=== PATIENT | male | born 1955 | race African-American/Black ===

== ENCOUNTER 2018-01-01 20:09 | Inpatient (IN) | payer OTHER ==
[2018-01-01] MEDS ORDERED: Atorvastatin Calcium 40 MG TAB PO SCH (21:30)
[2018-01-01] MEDS ORDERED: Atorvastatin Calcium 20 MG TAB PO SCH (21:30)
[2018-01-01 21:43] LABS: Troponin I 0.039 ng/mL (< 0.028)
[2018-01-01 22:32] VITALS: BMI 31.1
[2018-01-01] MEDS ORDERED: Ondansetron HCl/PF 4 MG/2 ML Vial IVP PRN (22:40)
[2018-01-01] MEDS ORDERED: Acetaminophen 325 MG TAB PO PRN (22:40)
[2018-01-01] MEDS ORDERED: Ondansetron ODT 4 MG TAB SL PRN (22:40)
[2018-01-01] MEDS ORDERED: Milk Of Magnesia 30 ML UDCUP PO PRN (22:47)
[2018-01-01] MEDS ORDERED: Dextrose 5% in Water 1,000 ML IV PRN (22:49)
[2018-01-01] MEDS ORDERED: HumaLOG 300 UNITS/3 ML VIAL SC PRN (22:49)
[2018-01-01] MEDS ORDERED: Dextrose 50% Abboject 50 ML SYRINGE SLOW IVP PRN (22:49)
[2018-01-01] MEDS ORDERED: Albuterol Sulfate 2.5 mg/3 ml Neb NEB PRN (22:50)
[2018-01-01] MEDS ORDERED: Dextrose 5 %-0.45 % NaCl 1,000 ML IV SCH (23:00)
[2018-01-02 00:15] LABS: Troponin I 0.046 ng/mL (< 0.028)
--- NOTE | 2018-01-02 01:33 | HP ---
PRESENTING COMPLAINT: Altered mental status. HISTORY OF PRESENT ILLNESS: This is a 62-year-old male with a past medical history of hypertension, diabetes mellitus, asthma, and? CKD, who was noticed to be behaving bizarrely on Monday afternoon. He was having difficulty expressing himself, was combative , forgetful (could not even remember his own phone number), he was also frustrated and he had unsteady gait. He also complained of blurry vision. Patient's family reports that they have never seen him like that even though they are aware that he uses cocaine and they have seen him high. He had also complained of a persistent headache a week before. There was no history of fevers, chills, chest pain, shortness of breath. He has no abdominal or urinary symptoms. History limited due to patient's clinical condition (unable to give history and sister had to fill in with details). PAST MEDICAL HISTORY: Hypertension, diabetes mellitus, asthma, and questionable CKD. FAMILY HISTORY: Reviewed and noncontributory. PAST SURGICAL HISTORY: Noncontributory. SOCIAL HISTORY: He uses cocaine socially. Occasionally, he smokes, unsure if he uses alcohol or not. ALLERGIES: PENICILLIN. PRIMARY CARE PHYSICIAN: None. REVIEW OF SYSTEMS: Unable to assess due to patient's acute confusion. HOME MEDICATIONS: Unclear what medication the patient takes at home. PHYSICAL EXAMINATION: VITAL SIGNS: Blood pressure 189/96, temperature 98.9 degrees Fahrenheit, heart rate 75, respiratory rate 20, oxygen saturation 96% on room air. GENERAL: Not in acute distress, sitting comfortably in bed. HEENT: Normocephalic, atraumatic. Not pale, anicteric. Moist oral mucosa. PERRLA, EOMI. RESPIRATORY: Vesicular breath sounds bilaterally, no wheezes or rales. CARDIOVASCULAR: S1 and S2, only. Regular rate and rhythm. No murmurs, rubs, or gallops. ABDOMEN: Soft, nontender, nondistended. Bowel sounds positive. No hepatosplenomegaly. MUSCULOSKELETAL: No abnormalities. No edema. SKIN: Warm, dry, well perfused. NEUROLOGICAL: Has difficulty following commands and seems to have left-sided neglect. Strength 5/5 in right upper and lower extremities. Patient not really cooperating with movement of his left extremities. PSYCHIATRIC: Unable to assess. LABORATORY DATA: Chemistry significant for elevated creatinine of 1.7. Unclear if the patient has a history of CKD or not. Initial troponin was 0.039. Urinalysis was largely unremarkable. Urine toxicology was positive for cocaine metabolites. Hematology showed no real abnormalities. Brain CT, which showed [id number] white matter abnormalities, which may represent chronic ischemic change. MRI suggested to better characterize the findings. Abdomen/pelvis CT also was done and this shows no evidence of urinary tract calculus or obstruction. It also revealed a low density lesion in the right kidney, probably a cyst and a followup ultrasound was suggested to further evaluate. EKG: No acute ischemia. ASSESSMENT AND PLAN: 1. Aphasia with L extremity weakness: Concern for Acute ischemic stroke. Patient seems to have Broca's aphasia with difficulty expressing himself. He has been admitted for cerebrovascular accident. We will pursue an MRI brain, monitor on tele and get Neurology consult. We will also obtain a lipid profile , start on aspirin and statin for secondary prevention. PT/OT/speech language pathologist will also be consulted. 2. Diabetes mellitus. His blood glucose is currently relatively well controlled. We will place on sliding scale insulin, fingerstick glucose every 6 hours and hypoglycemia protocol. 3. Acute kidney injury. We will hydrate and monitor creatinine. 4. Hypertension. We will hold his home blood pressure medications once confirmed as we are allowing for permissive hypertension for now. PRN Labetalol for SBP > 220 and DBP > 120. 5. Asthma. Nebulizers p.r.n. CODE STATUS: FULL. MTDD
[2018-01-02] MEDS: Labetalol HCl 100 MG/20 ML VIAL SLOW IVP PRN (02:36)
[2018-01-02 04:29] LABS: #Basophils 0.1 thou/uL (0.0-0.2); #Eosinphils 0.1 thou/uL (0.0-0.7); #Lymphocytes 2.2 thou/uL (1.20-3.40); #Monocytes 1.1 thou/uL (0.11-0.59); #Neutrophils 5.3 thou/uL (1.40-6.50); %Basophils 0.7 % (0.0-1.0); %Eosinophils 0.8 % (0.0-10.0); %Lymphocytes 25.6 % (21.0-51.0); %Monocytes 12.3 % (0.0-10.0); %Neutrophils 60.6 % (42.0-75.0); Hemoglobin 14.4 g/dL (14.0-18.0); Mean Corpuscular HGB CONC 32.9 g/dL (32.0-36.0); Mean Corpuscular Hemoglobin 30.7 pg (27.0-31.0); Mean Corpuscular Volume 93.1 fl (80.0-94.0); Mean Platelet Volume 8.5 fL (7.4-10.4); Platelet Count 211 thou/uL (130-400); RBC Distribution Width 12.2 % (11.5-14.5); White Blood Cell (WBC) Count 8.7 thou/uL (4.8-10.8)
[2018-01-02 04:42] LABS: Troponin I 0.041 ng/mL (< 0.028)
[2018-01-02 04:47] LABS: ALT (SGPT) 14 U/L (8-55); AST (SGOT) 20 U/L (5-34); Albumin 3.9 g/dL (3.5-5.0); Alkaline Phosphatase 67 U/L (40-150); Anion Gap 14 mmol/L (10-20); BUN (Urea Nitrogen) 15 mg/dL (8.4-25.7); Bilirubin, Total 0.8 mg/dL (0.2-1.2); Calc. Creatinine Clearance 74 mL/min (70-130); Calcium 9.1 mg/dL (7.8-10.44); Carbon Dioxide 21 mmol/L (22-29); Cardiac Risk 6.5 (Less than 4.5); Chloride 104 mmol/L (98-107); Cholesterol 221 mg/dl (< 200 Desired); Estimated GFR-MDRD 61; Globulin 3.4 g/dL (2.4-3.5); Glucose 125 mg/dL (70-105); HDL Cholesterol 34 mg/dL (>60 Neg Risk); LDL Cholesterol, Calculated 171 mg/dL; Potassium 3.5 mmol/L (3.5-5.1); Protein, Total 7.3 g/dL (6.0-8.3); Sodium 135 mmol/L (136-145); Triglycerides 81 mg/dL (Less than 150)
[2018-01-02] MEDS ORDERED: FLU VACC QS2017-18 36 mo. & older 0.5 ML SYRINGE IM ONE (09:00)
[2018-01-02] MEDS ORDERED: Aspirin 325 MG TAB PO SCH (09:00)
--- NOTE | 2018-01-02 10:24 | PQF ---
DATE: 01-02-18 ATTN: DR. ROBERTO VILLALTA Please exercise your independent, professional judgment in responding to the clarification form. Clinical indicators are provided on the bottom of this form for your review Please check appropriate box(s): [ ] Encephalopathy: Type: [ ] Hypertensive [ ] Acute [ ] Subacute [ ] Chronic Etiology: [ ] Metabolic [ ] Toxic [ ] Drug induced: [ ] Unspecified [ ] Transient Alteration of Awareness [ ] Other diagnosis [ ] Unable to determine In addition, please specify: Present on Admission (POA): [ ] Yes [ ] No [ ] Unable to determine For continuity of documentation, please document condition throughout progress notes and discharge summary. Thank You. CLINICAL INDICATORS - SIGNS / SYMPTOMS / LABS ER DOCUMENTATION: EVALUATION OF CONFUSION, MENTAL STATUS CHANGE, FAMILY NOTICED CHANGE IN MENTAL STATUS AND DIFFICULTY SPEAKING H&P: UNABLE TO ASSESS DUE TO PATIENTS ACUTE CONFUSION BP: 01-02-18: 183/118, 165/106 RISK FACTORS: H&P: HE USES COCAINE SOCIALLY, HYPERTENSION TREATMENTS: NEURO CONSULT (MAR) LABETALOL IV (This form is maintained as a part of the permanent medical record) 2014 [employer], [employer]. All Rights Reserved EDEN [email or web address] Office: [phone] ANGELICA
[2018-01-02] MEDS: Aspirin 325 mg Enteric Coated Tablet PO SCH (12:15)
[2018-01-02] MEDS: Heparin 5,000 UNITS/ML VIAL SC SCH ×2 (12:15→19:42)
--- NOTE | 2018-01-02 12:49 | MRI ---
MRI BRAIN NONCONTRAST: HISTORY: CVA. COMPARISON: CT exam from 01/01/2018. FINDINGS: Multiple small, irregular-shaped foci of restricted diffusion involve the posterior aspect of the rig ht external capsule, the posterior limb of the right internal capsule, the cortex of the right tempor al lobe, the posterior aspect of the frontal lobe, and the parietal lobe. No restricted diffusion on the left. There is prominent chronic ischemic small vessel disease throughout the periventricular w alia matter of each cerebral hemisphere. No mass effect or shift of midline structures. Motion bhavesh fact limits detail. IMPRESSION: Small foci of acute infarct within the right cerebellar hemisphere, suggesting showering of tiny embo li in the distribution of the right middle cerebral artery. No large vascular distribution defect is otherwise demonstrated. POS: [facility]
--- NOTE | 2018-01-02 15:32 | PDOC.PN ---
- Subjective Encounter Start Date: 01/02/18 Encounter Start Time: 15:29 Subjective: nsg notes rev, edouard ovn, no new c/o pt has little recall of yesterday 's -: events but states that he feels close to his "usual" - denies any speech -: slurring or weakness - Objective Resuscitation Status: Resuscitation Status FULL:Full Resuscitation Vital Signs & Weight: Vital Signs (12 hours) Temp Pulse Pulse Pulse Resp BP BP 01/02/18 11:45 98.5 F 64 16 01/02/18 10:39 69 78 164/106 H 182/114 H 01/02/18 07:57 98.6 F 64 16 01/02/18 07:28 67 72 172/99 H 161/124 H 01/02/18 03:39 99.3 F 71 20 BP Pulse Ox 01/02/18 11:45 152/98 H 98 01/02/18 10:39 01/02/18 07:57 165/106 H 98 01/02/18 07:28 01/02/18 03:39 149/93 H 95 Weight Weight 211 lb I&O: 01/01/18 01/02/18 01/03/18 06:59 06:59 06:59 Intake Total 950 Output Total 950 Balance 0 Result Diagrams: 01/02/18 04:03 01/02/18 04:03 Additional Labs: Accuchecks 01/02/18 01/02/18 01/01/18 10:53 05:12 22:33 POC Glucose 177 H 122 H 82 Phys Exam - Physical Examination Constitutional: NAD HEENT: PERRLA, moist MMs, sclera anicteric, TM's clear cranial nn 2-12 grossly intact Respiratory: no wheezing, no rales, no rhonchi, clear to auscultation bilateral reasonable air mvmt Cardiovascular: RRR, no significant murmur, no rub pulses 2+ b/l UE Gastrointestinal: soft, non-tender, no distention, positive bowel sounds Musculoskeletal: no edema Neurological: moves all 4 limbs Psychiatric: normal affect, A&O x 3 Skin: cap refill <2 seconds Dx/Plan - Plan 62M hx HTN, DM who p/w AMS, word finding difficulties and extremity weakness. * stroke MCA distribution, concern for embolic etiology * pending ECHO * ASA * apprec neuro c/s HTN * close monitoring on stroke unit * permissive antihypertension DM2 * stable, monitor diet: diabetic activity: as latisha, PT c/s dvt ppx Review of Systems - Medications/Allergies Allergies/Adverse Reactions: Allergies Allergy/AdvReac Type Severity Reaction Status Date / Time No Known Allergies Allergy Verified 01/02/18 00:10 Medications: Current Medications Albuterol Sulfate (Ventolin) 2.5 mg NEB Q4H PRN PRN Reason: Wheezing Aspirin (Ecotrin) 325 mg PO DAILY [facility] Last Admin: 01/02/18 12:15 Dose: 325 mg Atorvastatin Calcium (Lipitor) 40 mg PO HS [facility] Dextrose/Water (Dextrose 50%) 25 gm SLOW IVP PRN PRN PRN Reason: Hypoglycemia Glucagon (Glucagon) 1 mg IM PRN PRN PRN Reason: Hypoglycemia Heparin Sodium (Porcine) (Heparin) 5,000 units SC Q12HR [facility] Last Admin: 01/02/18 12:15 Dose: 5,000 units Dextrose/Water (D5w) 1,000 mls @ 0 mls/hr IV .Q0M PRN; As Directed PRN Reason: Hypoglycemia Insulin Human Lispro (Humalog) 0 units SC .MILD SLIDING SCALE PRN PRN Reason: Mild Correctional Scale Labetalol HCl (Normodyne) 10 mg SLOW IVP Q4H PRN PRN Reason: SBP Greater Than 180 Last Admin: 01/02/18 02:36 Dose: 2 ml Lactulose (Lactulose) 20 gm PO DAILYPRN PRN PRN Reason: Constipation Magnesium Hydroxide (Milk Of Magnesium) 30 ml PO DAILYPRN PRN PRN Reason: Constipation Sodium Chloride (Flush - Normal Saline) 10 ml IVF Q12HR [facility] Last Admin: 01/02/18 12:19 Dose: 10 ml Sodium Chloride (Flush - Normal Saline) 10 ml IVF PRN PRN PRN Reason: Saline Flush
[2018-01-02] MEDS ORDERED: Ondansetron HCl/PF 4 MG/2 ML Vial IVP PRN (19:19)
[2018-01-02] MEDS: Atorvastatin Calcium 40 MG TAB PO SCH (19:42)
[2018-01-02] MEDS: Acetaminophen 325 MG TAB PO PRN (19:42)
--- NOTE | 2018-01-02 22:04 | CON ---
DATE OF CONSULTAITON: 01/02/2018 REFERRING PHYSICIAN: Dr. Agatha Mahan. REASON FOR CONSULTATION: Stroke. HISTORY OF PRESENT ILLNESS: Mr. Little is a pleasant 62-year-old -[place]ian male who has been concerned for evaluation of a stroke. History is obtained from patient's medical chart as well as patient who is somewhat of a poor historian. He reports that he was having difficulty with expres sing himself. He was having difficulty with remembering and difficulty with performing activities. He was also noted to have unsteady gait and blurred vision, which prompted his family members to brin g him to the emergency room for further evaluation. He did not have any headache, chest pain, palpit ation, nausea, vomiting, abdominal pain. He reports that his symptoms have improved since he is aricin yari admitted to the hospital. PAST MEDICAL HISTORY: Significant for hypertension, diabetes, asthma and questionable chronic kidney disease. PAST SURGICAL HISTORY: None significant. SOCIAL HISTORY: He uses cocaine socially. He occasionally smokes. FAMILY HISTORY: Noncontributory. CURRENT MEDICATIONS: Please review MAR. ALLERGIES: Include PENICILLIN. REVIEW OF SYSTEMS: As mentioned above in the HPI, otherwise negative. PHYSICAL EXAMINATION: VITAL SIGNS: Blood pressure of 161/103, pulse of 76, temperature of 98.8, respirations of 16, O2 sat s of 93% on room air. GENERAL: Well-developed, well-nourished -[place]vian male, in no apparent distress. RESPIRATORY: Clear to auscultation bilaterally. CARDIOVASCULAR: Regular rate and rhythm. NEUROLOGICAL: Mental status: The patient is awake, alert, oriented x3. Speech and language: Fluen t speech. Cranial nerves: Pupils are 3 mm and reactive. He has a left hemianopia. He has a left h emineglect. Face appears symmetric. Tongue and uvula are midline. Motor exam showed normal tone an d bulk with a 5/5 strength in both upper and lower extremities. Sensory: He has a left hemineglect. Deep tendon reflexes, somewhat brisk reflexes in left upper and left lower extremity. Babinski harvey ntar responses extensor on the left, flexion on the right. Coordination intact to [id number] tapping bilaterally. LABORATORY DATA: Reviewed, which included CBC and CMP with lipid profile, which is significant for s odium 135, creatinine 1.43, glucose of 177, troponin of 0.041, total cholesterol 221, LDL of 171, HDL of 34, and triglycerides of 81, otherwise unremarkable. IMAGING STUDIES: MRI brain without contrast was reviewed, which showed moderate size right middle ce rebral artery distribution ischemic infarct. IMPRESSION: 1. Right middle cerebral artery distribution ischemic infarct. 2. Left hemineglect, due to #1. 3. Left hemianopia, due to #1. 4. Hypertension. PLAN: Mr. Little is a pleasant 62-year-old -[place]ian male with a history of cocaine use in the past, presented with the gait imbalance difficulty along with changes in behavior. His MRI di d show acute right middle cerebral artery distribution ischemic infarct. At this time, I will recomm end obtaining echocardiogram and CT angiogram of the neck for further evaluation. I would recommend continuing on aspirin 325 mg daily for secondary stroke prevention. He will also need to continue on atorvastatin 40 mg at bedtime. I have discussed with the patient that he cannot drive as he has a c omplete left hemianopia that would restrict his driving. Continue supportive care. Thank you for your consultation.
[2018-01-03] MEDS: Acetaminophen 325 MG TAB PO PRN ×2 (04:10→21:02)
[2018-01-03 05:27] LABS: #Basophils 0.1 thou/uL (0.0-0.2); #Eosinphils 0.1 thou/uL (0.0-0.7); #Lymphocytes 2.8 thou/uL (1.20-3.40); #Neutrophils 3.2 thou/uL (1.40-6.50); %Basophils 0.8 % (0.0-1.0); %Eosinophils 1.8 % (0.0-10.0); %Lymphocytes 39.2 % (21.0-51.0); %Monocytes 13.8 % (0.0-10.0); %Neutrophils 44.3 % (42.0-75.0); Hemoglobin 14.4 g/dL (14.0-18.0); Mean Corpuscular HGB CONC 33.2 g/dL (32.0-36.0); Mean Corpuscular Hemoglobin 31.3 pg (27.0-31.0); Mean Corpuscular Volume 94.3 fl (80.0-94.0); Mean Platelet Volume 8.5 fL (7.4-10.4); Platelet Count 216 thou/uL (130-400); RBC Distribution Width 12.5 % (11.5-14.5); White Blood Cell (WBC) Count 7.1 thou/uL (4.8-10.8)
[2018-01-03 05:53] LABS: Anion Gap 13 mmol/L (10-20); BUN (Urea Nitrogen) 13 mg/dL (8.4-25.7); Calc. Creatinine Clearance 68 mL/min (70-130); Calcium 9.1 mg/dL (7.8-10.44); Carbon Dioxide 25 mmol/L (22-29); Chloride 103 mmol/L (98-107); Estimated GFR-MDRD 54; Glucose 85 mg/dL (70-105); Potassium 3.9 mmol/L (3.5-5.1); Sodium 137 mmol/L (136-145)
--- NOTE | 2018-01-03 08:59 | CT ---
CT ANGIOGRAM OF THE NECK: Date: 01/03/18 HISTORY: Poor historian. Stroke. Altered mental status. COMPARISON: None. TECHNIQUE: CT angiogram of neck performed in the axial plane. Sagittal and coronal three-dimensional reformatted images are submitted for interpretation. CORRELATION: MRI brain dated 01/02/18. FINDINGS: Visualized brain parenchyma and orbits are unremarkable. Adequate aeration of the visualized sinuses and mastoid air cells. Minimal mucosal disease and retention cyst in the left maxillary sinus. Aerodigestive tract is patent. No mucosal abnormality. Midline fatty raphe of the tongue is preserved . Epiglottis has a normal caliber. Pre-epiglottic fat is preserved. Parapharyngeal fat is preserved. Symmetric attenuation of the parotid and submandibular glands. Thyroid gland is unremarkable. Symmetric attenuation of the sternocleidomastoid muscles. There is scattered nonspecific, nonenlarged bilateral soft tissue neck lymph nodes. Cervical spine vertebral body height is maintained. No fracture. Varying degrees of central canal aiyana nosis and foraminal narrowing on the basis of degenerative change. Upper mediastinum is unremarkable. Presumed chronic change in the lung apices. CT ANGIOGRAM: There is appropriate enhancement and luminal diameter of the aortic arch. Right Carotid: The origin of the right carotid artery has appropriate enhancement and luminal diameter. The right co mmon carotid artery, carotid bifurcation, and internal carotid artery have appropriate enhancement an d luminal diameter. No significant stenosis based upon NASCET criteria. There is mild stenosis of the proximal right internal carotid artery. Left Carotid: There is appropriate enhancement and luminal diameter of origin of left carotid artery. Left common c arotid artery, carotid bifurcation, and internal carotid artery have appropriate enhancement and yesenia nal diameter. No significant stenosis based upon NASCET criteria. Both subclavian arteries are unremarkable. The origin of the left and right vertebral arteries are pa tent. Both cervical vertebral arteries are patent throughout the course of the neck. Vertebral arteri es are essentially codominant. IMPRESSION: Short segment mild stenosis involving the proximal right internal carotid artery. No significant sten osis based upon NASCET criteria. POS: [facility]
[2018-01-03] MEDS: Heparin 5,000 UNITS/ML VIAL SC SCH ×2 (09:26→21:03)
[2018-01-03] MEDS: Aspirin 325 mg Enteric Coated Tablet PO SCH (09:26)
[2018-01-03] MEDS: Labetalol HCl 100 MG/20 ML VIAL SLOW IVP PRN (12:43)
[2018-01-03] MEDS ORDERED: Polyethylene Glycol 3350 17 GM Packet PO SCH (18:15)
--- NOTE | 2018-01-03 19:31 | PDOC.PN ---
- Subjective Encounter Start Date: 01/03/18 Encounter Start Time: 19:31 Subjective: nsg notes rev, edouard ovn, no new c/o - Objective Resuscitation Status: Resuscitation Status FULL:Full Resuscitation Vital Signs & Weight: Vital Signs (12 hours) Temp Pulse Resp BP BP Pulse Ox 01/03/18 16:54 145/103 H 01/03/18 16:00 98.6 F 53 L 16 194/121 H 92 L 01/03/18 12:00 98.2 F 65 16 175/132 H 97 01/03/18 08:26 98.6 F 53 L 16 92 L 01/03/18 08:00 98.1 F 66 16 158/114 H 94 L Weight Weight 211 lb 14.4 oz I&O: 01/02/18 01/03/18 01/04/18 06:59 06:59 06:59 Intake Total 950 1270 800 Output Total 950 700 Balance 0 570 800 Result Diagrams: 01/03/18 04:07 01/03/18 04:07 Additional Labs: Accuchecks 01/03/18 01/03/18 01/03/18 17:10 11:41 04:08 POC Glucose 107 137 H 85 01/02/18 19:38 POC Glucose 155 H Phys Exam - Physical Examination Constitutional: NAD HEENT: PERRLA, moist MMs Respiratory: no wheezing, no rales, no rhonchi, clear to auscultation bilateral limited ant exam Cardiovascular: RRR, no significant murmur, no rub Gastrointestinal: soft, positive bowel sounds Musculoskeletal: no edema, pulses present Dx/Plan - Plan 62M hx HTN, DM who p/w AMS, word finding difficulties and extremity weakness. * stroke MCA distribution, concern for embolic etiology * ECHO unrevealing * CT neck unrevealing * ASA * apprec neuro c/s HTN * close monitoring on stroke unit * permissive antihypertension * t/c starting antihypertensive medication at d/c if continued elev BP DM2 * stable, monitor diet: diabetic activity: as latisha, PT c/s dvt ppx start d/c planning Review of Systems - Medications/Allergies Allergies/Adverse Reactions: Allergies Allergy/AdvReac Type Severity Reaction Status Date / Time No Known Allergies Allergy Verified 01/02/18 00:10 Medications: Current Medications Acetaminophen (Tylenol) 650 mg PO Q6H PRN PRN Reason: Headache/Fever or Pain Last Admin: 01/03/18 04:10 Dose: 650 mg Albuterol Sulfate (Ventolin) 2.5 mg NEB Q4H PRN PRN Reason: Wheezing Aspirin (Ecotrin) 325 mg PO DAILY [facility] Last Admin: 01/03/18 09:26 Dose: 325 mg Atorvastatin Calcium (Lipitor) 40 mg PO HS [facility] Last Admin: 01/02/18 19:42 Dose: 40 mg Dextrose/Water (Dextrose 50%) 25 gm SLOW IVP PRN PRN PRN Reason: Hypoglycemia Docusate Sodium (Colace) 100 mg PO BID [facility] Glucagon (Glucagon) 1 mg IM PRN PRN PRN Reason: Hypoglycemia Heparin Sodium (Porcine) (Heparin) 5,000 units SC Q12HR [facility] Last Admin: 01/03/18 09:26 Dose: 5,000 units Dextrose/Water (D5w) 1,000 mls @ 0 mls/hr IV .Q0M PRN; As Directed PRN Reason: Hypoglycemia Insulin Human Lispro (Humalog) 0 units SC .MILD SLIDING SCALE PRN PRN Reason: Mild Correctional Scale Labetalol HCl (Normodyne) 10 mg SLOW IVP Q4H PRN PRN Reason: SBP Greater Than 180 Last Admin: 01/03/18 12:43 Dose: 2 ml Lactulose (Lactulose) 20 gm PO DAILYPRN PRN PRN Reason: Constipation Magnesium Hydroxide (Milk Of Magnesium) 30 ml PO DAILYPRN PRN PRN Reason: Constipation Last Admin: 01/03/18 12:43 Dose: 30 ml Ondansetron HCl (Zofran) 4 mg IVP Q6H PRN PRN Reason: Nausea/Vomiting Last Admin: 01/02/18 19:42 Dose: 4 mg Polyethylene Glycol (Miralax) 17 gm PO NOW [facility] Stop: 01/03/18 20:15 Sodium Chloride (Flush - Normal Saline) 10 ml IVF Q12HR [facility] Last Admin: 01/03/18 09:26 Dose: 10 ml Sodium Chloride (Flush - Normal Saline) 10 ml IVF PRN PRN PRN Reason: Saline Flush
[2018-01-03] MEDS: Atorvastatin Calcium 40 MG TAB PO SCH (21:02)
[2018-01-03] MEDS: Docusate 100 MG CAP PO SCH (21:02)
[2018-01-04 05:46] LABS: #Basophils 0.1 thou/uL (0.0-0.2); #Eosinphils 0.2 thou/uL (0.0-0.7); #Lymphocytes 2.3 thou/uL (1.20-3.40); #Monocytes 0.9 thou/uL (0.11-0.59); #Neutrophils 3.2 thou/uL (1.40-6.50); %Basophils 0.9 % (0.0-1.0); %Eosinophils 2.5 % (0.0-10.0); %Lymphocytes 34.1 % (21.0-51.0); %Monocytes 14.1 % (0.0-10.0); %Neutrophils 48.4 % (42.0-75.0); Hemoglobin 14.2 g/dL (14.0-18.0); Mean Corpuscular HGB CONC 31.4 g/dL (32.0-36.0); Mean Corpuscular Volume 92.4 fl (80.0-94.0); Mean Platelet Volume 8.4 fL (7.4-10.4); Platelet Count 229 thou/uL (130-400); RBC Distribution Width 12.7 % (11.5-14.5); Red Blood Cell (RBC) Count 4.88 mill/uL (4.70-6.10); White Blood Cell (WBC) Count 6.6 thou/uL (4.8-10.8)
[2018-01-04 05:47] LABS: Anion Gap 13 mmol/L (10-20); BUN (Urea Nitrogen) 14 mg/dL (8.4-25.7); Calc. Creatinine Clearance 61 mL/min (70-130); Calcium 9.4 mg/dL (7.8-10.44); Carbon Dioxide 27 mmol/L (22-29); Chloride 103 mmol/L (98-107); Estimated GFR-MDRD 51; Glucose 97 mg/dL (70-105); Potassium 4.1 mmol/L (3.5-5.1); Sodium 139 mmol/L (136-145)
[2018-01-04] MEDS: Aspirin 325 mg Enteric Coated Tablet PO SCH (08:56)
[2018-01-04] MEDS: Heparin 5,000 UNITS/ML VIAL SC SCH (08:56)
[2018-01-04] MEDS: Docusate 100 MG CAP PO SCH (08:56)
[2018-01-04] MEDS: Acetaminophen 325 MG TAB PO PRN (08:56)
[2018-01-04] MEDS ORDERED: Lisinopril 10 MG TAB PO SCH (12:15)
[2018-01-04 15:58] VITALS: BP 160/104; TEMP 98.3
[2018-01-05] MEDS ORDERED: Lisinopril 10 MG TAB PO SCH (09:00)
--- NOTE | 2018-01-05 14:45 | DIS ---
DATE OF ADMISSION: 01/01/2018 DATE OF DISCHARGE: 01/04/2018 The patient's neurologist, Dr. Serrato. DISCHARGE DIAGNOSES: 1. Right middle cerebral artery stroke. 2. Hypertension. 3. Type 2 diabetes. BRIEF SUMMARY OF HOSPITAL COURSE: This is a 62-year-old male with a known history of hypertension, t ype 2 diabetes who presented with a chief complaint of altered mental status, word finding difficulti es and extremity weakness. Please see the original history and physical for full details surrounding his admission. The patient was found to have a stroke with an MCA distribution with initial concern for embolic etio logy. Echocardiogram was completed. CT neck was completed. Neurology was consulted. Imaging modal ities including the CT neck and head were unrevealing. Under Neurology guidance, the patient was harvey taylor on high dose statin and aspirin as an antithrombotic and secondary prevention medication. The pa tient tolerated these medications well. The patient's blood pressure was closely monitored in the [facility] and was initially allowed for permissive hypertension in first 24 hours after the stroke and s ubsequently with improved antihypertensive control obtained using oral antihypertensive medications. Patient's diabetes is stable during this hospitalization. Remainder of the patient's chronic medical issues were stable during his hospitalization. DISCHARGE MEDICATIONS: At the time of discharge, the patient has new medications. Prescriptions wer e given including aspirin, atorvastatin, and lisinopril. DISCHARGE FOLLOWUP: The patient is asked to follow up with primary care provider and neurologist in the next 1-2 weeks. The patient is asked to obtain a followup basic metabolic panel in approximately 1-2 weeks as well given the initiation of lisinopril which is new for the patient. Patient's condit ion at discharge at the time of discharge, the patient's speech is significantly improved as his base line function and weakness. He is being discharged to home with a request for home health evaluation for home safety. Thank you for asking me to care for your patient. Greater than 30 minutes were spent coordinating discharge for the patient. For questions or concerns , contact me at [facility].
== END 2018-01-04 17:04 | disposition home or self-care (01) | DRG 65 ==
LOC: ERS 20:09 → 2SE 22:07
PROVIDERS: ADMIT Internal Medicine; ATTEND Internal Medicine
DX: I63.9 Cerebral infarction, unspecified (principal); N17.9 Acute kidney failure, unspecified; H53.47 Heteronymous bilateral field defects; R47.01 Aphasia; I10 Essential (primary) hypertension; E11.9 Type 2 diabetes mellitus without complications; F14.10 Cocaine abuse, uncomplicated; F17.210 Nicotine dependence, cigarettes, uncomplicated; J45.909 Unspecified asthma, uncomplicated; G83.14 Monoplegia of lower limb affecting left nondominant side
CPT/HCPCS: 36415; 36416; 70498; 70551; 80048; 80053; 80061; 84484; 85025; 90471; 90682; 90732; 93306; 99285; A4216; G0008; G0009; G8978-GP-CJ; G8979-GP-CI; G8987-GO-CJ; G8988-GO-CI; G9162-GN-CL; G9163-GN-CI; J1644; J2405; Q2036

== ENCOUNTER 2018-05-06 20:03 | Inpatient (IN) | payer OTHER ==
[2018-05-06] MEDS ORDERED: chlorproMAZINE HCl 50 MG/2 ML AMP SLOW IVP SCH (21:00)
--- NOTE | 2018-05-06 22:10 | ULT ---
RIGHT UPPER QUADRANT ULTRASOUND: HISTORY: Nausea, vomiting, and abdominal pain. TECHNIQUE: Multiple longitudinal and transverse images of the right upper quadrant of the abdomen are obtained u sing a Multi-Hertz curvilinear transducer. Real-time color-flow images are used to evaluate the righ t upper quadrant. FINDINGS: The liver is unremarkable with no evidence of masses or lesions. No evidence of intrahepatic biliary dilatation is seen. The common bile duct is of normal size, measuring 4.4 mm. The gallbladder is u nremarkable with no evidence of masses. The visualized portions of the pancreas are unremarkable. T he right kidney demonstrates no definite evidence of hydronephrosis. The right kidney contains an ar ea of hypoechogenicity along the mid pole, diameter measuring approximately 2 x 2.1 x 2.2 cm. There do appear to be some internal echoes and possible septae. This may represent a right renal cortical cyst, which appears to be complex, versus a cystic mass. Correlate with elective urological consulta tion. IMPRESSION: 1. No evidence of gallstones. 2. Right renal complex cyst or cystic lesion. Urological consultation recommended, electively. POS: [facility]
--- NOTE | 2018-05-06 23:21 | PDOC.FPRHP ---
Addendum entered and electronically signed by Carli Calderón MD 05/07/18 06:36 : BP: 107/71 P: 54-66 R: 16-18 O2 sat: 97 on room air T: 97.1 Original Note: - History of Present Illness Chief Complaint: abdominal pain History of Present Illness: Patient is a 62 yo M presenting with several days of abdominal pain and N/V accompanied with hiccups. The patient was seen at [facility] and was given Reglan and Zofran which did not relieve his symptoms. The patient states he has not been able to keep any fluids or food down for days. He has a PMH significant for a stroke in December with slurred speech deficits, DM, HTN, and asthma. He has also been having headaches and states it is painful to look towards his right. The headache is severe around his right eye/mu-ism area. He denies vision changes. He reports feeling dizzy and "wobbly" when walking. He also endorses stomach pain that is sharp in character and in the middle of his abdomen. He describes the pain as constant. The patient endorses using methamphetamine and cocaine, but was not clear when the last use was. Patient possibly had a fall a few days ago, but the patient is not sure if he hit his head. The patient denies chest pain, SOB, or diarrhea. He has been voiding and stooling normally. ED Course: JANA and EKG changes - Allergies/Adverse Reactions Allergies Allergy/AdvReac Type Severity Reaction Status Date / Time Penicillins AdvReac Intermediate swelling Verified 05/06/18 23:24 - Home Medications Medication Instructions Recorded Confirmed Type Atorvastatin Calcium [Lipitor] 40 mg PO HS 30 Days #30 tab 01/03/18 05/07/18 Rx ARIPiprazole [Aripiprazole] 5 mg PO DAILY 05/07/18 05/07/18 History Aspirin [Ecotrin Regular Strength] 81 mg PO DAILY 05/07/18 05/07/18 History Lisinopril [Zestril] 5 mg PO DAILY 05/07/18 05/07/18 History Sucralfate 1 gm PO TID 05/07/18 05/07/18 History metFORMIN [Glucophage] 500 mg PO BID-WM 05/07/18 05/07/18 History - History PMHx: DM, HTN, stroke in December - deficit slurred speech, bipolar disorder, schizophrenia PSHx: 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 FHx: DM, HTN, HLD Social: methamphetamine and cocain use, denies alcohol, denies tobacco - Review of Systems Gastrointestinal: reports: nausea, vomiting, abdominal pain Neurological: reports: other (dizziness) - Vital signs BP: [] HR: [] RR: [] Tmax: [] Pox: []% on [] Wt: [] - Physical Exam Constitutional: NAD, awake, alert and oriented, well developed HEENT: normocephalic and atraumatic, other (pinpoint pupils bilaterally; mucous membranes dry) Chest: no-tender to palpation Heart: RRR, normal S1/S2, no murmurs/rubs/gallops, pulses present, no edema Lungs: CTAB, no respiratory distress, good air movement, no rales/rhonchi, no wheezing Abdomen: bowel sounds present, no masses/distention, other (TTP in RUQ and midepigastrium) Neurological: other (patient was unable to tolerate EOM due to eye pain/ headache pain; normal ROSHAN and heel to rodriguez tests) Skin: no jaundice Psychiatric: normal mood and affect FMR H&P: Results - Labs Result Diagrams: 05/07/18 02:09 05/07/18 02:09 - EKG Interpretation EKG: Incomplete RBBB with T wave inversions in V5/6 FMR H&P: A/P - Plan 1. Persistent N/V secondary to gastritis vs drug abuse vs cerebellar insult - pt has had N/V for 3 days with no PO intake - s/p 1L NS, zofran and reglan in the ED - no certain cause at this time - continue PRN zofran - gentle IVF: 75ml/hour due to CHF - Strict I/Os - concern for possible posterior cerebellar stroke in setting of recent stroke in December 2017. 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 JANA on CKD Stage 3 - consult nephro in AM due to decline in renal fuction. BUN/Cr of 14/1.68 with GFR 51 on 01/07 --> 70/3.62 with GFR of 21 today - gentle IVF - repeat BMP in the AM - calculate FeNa from urine studies 3. EKG Changes - T wave inversions V5/6 secondary to deman vs drug abuse - currently patient denies chest pain and initial Trop was 0.025 - continue to trend troponins and CK-MB and telemetry monitoring - UDS pending -will hold beta blockers 4. Elevated CK secondary to N/V vs drug abuse - gentle IVF 5.Drug Abuse - on PE patient noted to have pinpoint pupils and endorsed hx of drug abuse - UDS pending 6. Epigastric abdominal pain secondary to N/V vs Pancreatitis - TTP on exam - lipase 85- not elevated enough for dx of pancreatitis. CT-AP earlier this year not suggestive of chronic pancreatitis - continue to tx N/V which will likely resolve symptoms - if symptoms persist will consider imaging - Protonix 7. T2DM - ACHS accuchecks and sliding scale - hold metformin in setting of acute renal failure 8. HTN - will hold lisinopril in setting of JANA - PRN IV meds - currently stable 9. Asthma - Pt not on any home meds - vitals stable and normal pulm exam - continue to monitor. PRN duonebs available CODE STATUS: FULL CODE FMR H&P: Upper Level - Pertinent history 62 y/o M w/ PMHx of polysubstance abuse and recent stroke in 12/2017 w/ residual slurred speech presented initially to [place] ER for evaluatino of N/V , abdominal pain, and persistent hiccups over the past 3 days. Reportedly pt has not been able to keep any PO down during this time. Pt notes that he has felt persistently dizzy and wobbly when walking which his family member confirmed. Also w/ recent fall 2/2 this as well per patient. Denies hitting head or LOC with this fall. Also noted DAVIS located around his right eye w/ pain looking to the right. Denies any vision changes. Also endorses sharp abdominal pain located right above his belly button which is constant. - Pertinent findings PE: GEN: NAD, laying in bed with lights off. Answering questions appropriately HEENT: Slightly dry MM, poor dentition, Pinpoint pupils equal b/l, EOMI. Pain w / looking to the right PULM: CTA-B/l, no wheezes or rhonci CARD: RRR, no murmur or gallops GI: TTP epigastrium, BS x4, soft, no guarding MSK: missing DIP middle finger left hand, moves all 4 ext. equally NEURO: Normal rapid alternating hand movement, unable to perform HINTS 2/2 patient stating head hurt, Heel scrape normal b/l. Slightly slurred speech which is at baseline per family member in room. - Plan Date/Time: 05/06/18 0284 Cornelio Sheridan, have evaluated this patient and agree with findings/plan as outlined by wedding planning internship resident. Pertinent changes/additions are listed here. 1. Intractable N/V (gastritis vs illicit substance induced vs cerebellar insult) - Pt w/ persistent nasusea and vomitting for the past 3 days w/ minimal to no PO intake - Able to tolerate some PO s/p admin of 1L NS, zofran and reglan in the ER - No certain etiology at this time - Will continue with PRN zofran and place patient on gentle IVF in the setting of CHF - Strict I/O's - Some concern for possible cerebellar insult in the setting of recent stroke , multiple risk factors, and endorses dizziness, unsteady gait, and intractable hiccups which could suggest this. Pt now with sxs for over 3 days and recent work-up for CVA 12/2017 as noted below. Will continue w/ home meds for maximal medical management and risk stratification. - Recent ECHO w/ mixed sdCHF EF 35-40% - Recent CTA neck showing short segment mild stenosis of the proximal R-ICA - MRI showing R-MCA stroke per neurology notes - Cont. w/ high intensity statin, ASA for antithrombotic and secondary prevention - Will have chlorpromazine available for hiccups which will also help w/ his N/ V as well. Will plan to use for a short time only 2/2 concern for development of EPS 2. JANA on CKD Stage 3 - Recent decline in renal function from BUN/Cr of 14/1.68 w/ GFR of 51 on 2017 to 70/3.62 w/ GFR of 21 on today's labs - Likely pre-renal component in the setting of #1 however cannot r/o intrinsic disease in the setting of polysubstance abuse - Also w/ renal cyst seen on RUQ U/S - Will plan to give gentle fluids in setting of mixed sdCHF w/ EF 35-40% from and repeat BMP in the AM - Will consider consulting nephro in the AM if no improvement is seen - Will check urine studies to calculate a FeNa 3. New onset T-wave inversions V5-V6 possibly due to demand vs substance abuse - Pt denies any current chest pain and initial cardiac enzymes negative - Reportedly from ER, pt w/ new t-wave inversions in leads V5-V6 from prior EKG. We were unable to locate his prior EKG, but per the ER records from his 2017 admission these did not appear on the ER physician's read. - Initial enzymes negative. Acute ischemia causing this seems unlikely at this time. - We will continue to trend trops and CK-MB w/ admit to telemetry - UDS results pending at time of this note, will not administer any beta blockers w/ endorses hx of cocaine use 4. Elevated CK likely 2/2 #1 vs polysubstance use - Will give gentle fluids in the setting of CHF - Likely 2/2 decreased volume status vs drug use - Levels not elevated enough for concern for rhabdo at this time 6. Polysubstance abuse - Pt w/ pinpoint pupils on exam and endorsed hx of substance abuse - UDS pending 7. Epigastric abdominal pain, likely 2/2 #1 vs gastric ulcer - Pt w/ epigastric tenderness on exam likely MSK in nature from #1 vs gastric ulcer as patient is on sucralfate outpatient - Also w/ Lipase 85. Level not elevated enough for diagnosis of pancreatitis and recent CT-AP from earlier this year with normal lipase not suggestive of chronic pancreatitis. - Will continue to treat his nausea and vomitting with likely resolution of his sxs as this improves - Cont. w/ sucralfate and will add Protonix as well if this is 2/2 an ulcer - Will check FOBT - If sxs persist will consider obtaining repeat abdominal imaging for further evaluation 8. T2DM - ACHS accuchecks and sliding scale - hold metformin in setting of JANA 9. HTN - Will hold lisinopril in the setting of #2 - PRN IV medications available - Currently stable 10. Asthma - Pt not on any home inhalers and vitals stable w/ normal pulm exam - Will cont. to monitor. PRN duonebs will be available. CODE STATUS: FULL CODE Attending Addendum - Attending Addendum Date/Time: 05/07/18 5507 I personally evaluated the patient and discussed the management with Dr. Benitez I agree with the History, Examination, Assessment and Plan documented above with any addition or exceptions noted belowBriefly this is a 62yo male with h/o DM type 2, HTN, and CVA in December with residual slurred speech, and h/o substance abuse presented c/o N/V , abdominal pain, DAVIS and lightheadedness for 3 -4 days. Abdominal pain and N/V resolved but c/o right sided temporal DAVIS worsened with bright light. Denies any double vision but does report pain with movement of eyes. States that the lightheadedness occurs with ambulation and also has associated SOB, easy fatiguability. PMH/PSH/All/Meds reviewed and agree with residents documentation. Afebrile VSS Exam repeated by me and significant for pinpoint pupils, no nystagmus but reports dizziness with eye movements. Strength 4+ on right and 5/5 on left. Rapid alternating movements intact. CT brain negative. MRI brain- small lacunar infarct in left periventricular white matter. A/P: 1) New CVA- neurology consulted. Continue statin. Will discuss whether need to change antiplatekt therapy. PT/OT. 2) HTN - resume home meds. 3) Bradycardia- residents called for HR in 30-40s in afternoon- will have cardiology see patient. 4) JANA- baseline CR appears to be about 1.5; will gently hydrate due to h/o CHF with rEF. Nephrology consulted.
[2018-05-06] MEDS ORDERED: Sodium Chloride 0.9% 1,000 ML IV SCH (23:50)
[2018-05-06] MEDS ORDERED: Ondansetron HCl/PF 4 MG/2 ML Vial IVP PRN (23:50)
[2018-05-06] MEDS ORDERED: Ondansetron ODT 4 MG TAB SL PRN (23:50)
[2018-05-06] MEDS ORDERED: Acetaminophen 325 MG TAB PO PRN (23:50)
[2018-05-07] MEDS ORDERED: chlorproMAZINE HCl 25 MG TAB PO PRN (01:28)
[2018-05-07] MEDS: Lactated Ringer's 1,000 ML IV SCH ×2 (01:43→15:04)
[2018-05-07 02:02] LABS: Amphetamine Not Detected (NotDetected); Barbiturates Screen Not Detected (NotDetected); Benzodiazepine Screen Not Detected (NotDetected); Cocaine Metabolite Screen Detected (NotDetected); Medtox Control Line Valid? VALID (VALID); Medtox Reader # READER 1; Methadone Not Detected (NotDetected); Methamphetamine Not Detected (NotDetected); Opiate Screen Not Detected (NotDetected); Oxycodone Screen Not Detected (NotDetected); Phencyclidine (PCP) Not Detected (NotDetected); THC/Cannabinoid Screen Not Detected (NotDetected); Tricyclic Screen Not Detected (NotDetected)
[2018-05-07 02:51] LABS: Lactic Acid 0.7 mmol/L (0.5-2.2)
[2018-05-07 02:55] LABS: Anion Gap 12 mmol/L (10-20); BUN (Urea Nitrogen) 53 mg/dL (8.4-25.7); Calc. Creatinine Clearance 41 mL/min (70-130); Calcium 8.6 mg/dL (7.8-10.44); Carbon Dioxide 21 mmol/L (22-29); Chloride 107 mmol/L (98-107); Estimated GFR-MDRD 33; Glucose 102 mg/dL (70-105); Sodium 136 mmol/L (136-145)
[2018-05-07 03:14] LABS: Eosinophils 5 % (0-10); Hemoglobin 13.7 g/dL (14.0-18.0); Lymphocytes 43 % (21-51); MDiff Complete? YES; Mean Corpuscular Hemoglobin 31.2 pg (27.0-31.0); Mean Corpuscular Volume 91.7 fL (78.0-98.0); Mean Platelet Volume 7.3 fL (7.4-10.4); Monocytes 20 % (0-10); Neutrophil 32 % (42-75); PLT Morphology Comment Appears Adequate; Platelet Count 202 thou/uL (130-400); RBC Distribution Width 12.5 % (11.5-14.5); Red Blood Cell (RBC) Count 4.39 mill/uL (4.70-6.10)
[2018-05-07 03:39] LABS: CKMB 3.3 ng/mL (0-6.6); Troponin I 0.018 ng/mL (< 0.028)
--- NOTE | 2018-05-07 05:33 | PDOC.FM ---
- Subjective Subjective: 62 yo M with intractable n/v. This morning he is still complaining of RLQ pain and epigastric tenderness. Still complains of temporal DAVIS, especially on the left side, and is sensitive to light. This morning he is also complaining of numbness in left arm and leg that started 1 week ago. Has not vomited this morning, hiccups have stopped. Reports last cocaine usage either yesterday or day before. - Objective Vital Signs & Weight: Vital Signs (12 hours) Temp Pulse Resp BP Pulse Ox 05/07/18 04:00 97.1 F L 54 L 16 107/71 97 05/07/18 01:11 97.2 F L 66 18 97/64 93 L 05/07/18 00:00 97.8 F 73 18 96 05/06/18 23:24 73 18 143/104 H 96 Weight Weight 91.081 kg I&O: -320 Result Diagrams: 05/07/18 02:09 05/07/18 02:09 EKG Reviewed by me: No (incomplete RBB with T-wave inversion in V5 and V6) Radiology: CT: normal U/S 05/06 abd: normal December CTA head/neck: prox rt ICA mild stenosis Phys Exam - Physical Examination Constitutional: NAD HEENT: moist MMs, sclera anicteric Pinpoint pupils bilaterally, EOM not intact (Left eye not aligned, sometime tends to stay medial but can look outward. Difficulty look up bilat) Neck: no JVD, supple Respiratory: no wheezing, no rales, no rhonchi, clear to auscultation bilateral Cardiovascular: RRR, no rub Gastrointestinal: soft TTP in RLQ and epigastrum. +CVA tenderness bilat Musculoskeletal: no edema, pulses present Numbness rt arm and leg, strength 4/5 in rtUE. 5/5 strength LUE & RLE/LLE Lymphatic: no nodes Psychiatric: normal affect Skin: no rash, normal turgor, cap refill <2 seconds Dx/Plan (1) Arm paresthesia, right Code(s): R20.2 - PARESTHESIA OF SKIN Status: Acute (2) Right leg paresthesias Code(s): R20.2 - PARESTHESIA OF SKIN Status: Acute (3) Weakness of right hand Code(s): R29.898 - OTH SYMPTOMS AND SIGNS INVOLVING THE MUSCULOSKELETAL SYSTEM Status: Acute (4) Intractable nausea and vomiting Code(s): R11.2 - NAUSEA WITH VOMITING, UNSPECIFIED Status: Acute (5) JANA (acute kidney injury) Code(s): N17.9 - ACUTE KIDNEY FAILURE, UNSPECIFIED Status: Acute (6) T wave inversion in EKG Code(s): R94.31 - ABNORMAL ELECTROCARDIOGRAM [ECG] [EKG] Status: Acute (7) Polysubstance abuse Code(s): F19.10 - OTHER PSYCHOACTIVE SUBSTANCE ABUSE, UNCOMPLICATED Status: Chronic (8) T2DM (type 2 diabetes mellitus) Status: Chronic (9) HTN (hypertension) Code(s): I10 - ESSENTIAL (PRIMARY) HYPERTENSION Status: Chronic (10) Asthma Code(s): J45.909 - UNSPECIFIED ASTHMA, UNCOMPLICATED Status: Chronic - Plan Plan: 1. Paresthesias, r/o TIA/CVA -Hx stroke in December -Pt reports numbness rt arm and leg new for past week, weakness 4/5 reception manager strength rt side; EOM non congruent -CT head showed: no embolism - Recent CTA neck showing short segment mild stenosis of the proximal R-ICA - MRI showing R-MCA stroke per neurology notes - Cont. w/ high intensity statin, ASA for antithrombotic and secondary prevention - f/up with MRI today - Neuro consult today for concern for a B[employer]ING M[employer]ER infarct or retinal vein/artery occlusion 2. 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 - Will have chlorpromazine available for hiccups which will also help w/ his N/ V as well. -Will plan to use for a short time only 2/2 concern for development of EPS - Also w/ Lipase 85. Level not elevated enough for diagnosis of pancreatitis and recent CT-AP from earlier this year with normal lipase not suggestive of chronic pancreatitis. - Cont. w/ sucralfate and will add Protonix as well if this is 2/2 an ulcer - FOBT pending - Outside CT of abd normal, showed no acute pathology 3. JANA on CKD Stage 3 - Recent decline in renal function from BUN/Cr of 14/1.68 w/ GFR of 51 on 2017 to 70/3.62 w/ GFR of 21 - FeNa shows 1.15%, indicative of intrinsic renal disease - today BMP shows BUN of 53, Cr 2.46 - Also w/ renal cyst seen on RUQ U/S - Dr. Gant consulted by the ED physician - per pt, has hx of renal stones - +CVA tenderness bilat on exam, + tenderness RLQ and mid epigastrium - UA with reflex microscopy ordered 4. New onset T-wave inversions V5-V6 possibly due to demand vs substance abuse - Pt denies any current chest pain and initial cardiac enzymes negative - Reportedly from ER, pt w/ new t-wave inversions in leads V5-V6 from prior EKG. We were unable to locate his prior EKG, but per the ER records from his 2017 admission these did not appear on the ER physician's read. - Initial enzymes negative. Trop negx2. Acute ischemia causing this seems unlikely at this time. - We will continue to trend trops and CK-MB in telemetry - UDS: + for cocaine. will not administer any beta blockers. 5. Elevated CK likely 2/2 #2 vs polysubstance use - Will give gentle fluids in the setting of CHF - Likely 2/2 decreased volume status vs drug use - Levels not elevated enough for concern for rhabdo at this time 6. Polysubstance abuse - Pt w/ pinpoint pupils on exam and endorsed hx of substance abuse - UDS +Cocaine 8. T2DM - ACHS accuchecks and sliding scale - hold metformin in setting of JANA 9. HTN - Will hold lisinopril in the setting of JANA - PRN IV medications available - Currently stable 10. Asthma - Pt not on any home inhalers and vitals stable with no wheezing - Will cont. to monitor. PRN duonebs will be available. CODE STATUS: FULL CODE
[2018-05-07 06:20] LABS: CKMB 2.8 ng/mL (0-6.6); Troponin I 0.016 ng/mL (< 0.028)
[2018-05-07] MEDS: Sucralfate 1 GM TAB PO SCH ×3 (08:45→20:26)
[2018-05-07] MEDS: Pantoprazole 40 MG GRANULES PACKET PO SCH (08:45)
[2018-05-07] MEDS: Aspirin 81 mg Enteric Coated Tablet PO SCH (08:45)
[2018-05-07] MEDS: Aripiprazole 10 MG TAB PO SCH (08:45)
[2018-05-07] MEDS: Enoxaparin Sodium 30 MG/0.3 ML SYRINGE SC SCH (08:46)
--- NOTE | 2018-05-07 09:27 | CT ---
PRELIMINARY REPORT/[facility]/EMERGENTY AFTER-HOURS PROCEDURE CT Head Without Intravenous Contrast CLINICAL HISTORY: 62 years old, male; Signs and symptoms; Other: Weakness; Patient HX: PT C/O weakness. HX of falls, HX of stroke TECHNIQUE: Axial computed tomography images of the head/brain without intravenous contrast. COMPARISON: No relevant prior studies available. FINDINGS: Brain: Volume loss and chronic small vessel ischemic change. Superior right frontoparietal encephalom alacia/gliosis. No brain edema. No intracranial hemorrhage. Ventricles: Normal. No ventriculomegaly. Bones/joints: Normal. No acute fracture. Sinuses: Normal as visualized. No acute sinusitis. Mastoid air cells: Normal as visualized. No mastoid effusion. Soft tissues: Normal. IMPRESSION: No acute brain findings. Thank you for allowing us to participate in the care of your patient. Dictated and Authenticated by: Jesus Manuel Schmitz MD 05/07/2018 3:53 AM Central Time ([place] & [place]) FINAL REPORT HEAD CT WITHOUT CONTRAST: DATE: 05/07/18. COMPARISON: 01/01/18. HISTORY: Weakness, history of falls, history of strokes. FINDINGS: I agree with the preliminary [facility] report dictated by Dr. Schmitz. The visualized paranasal sinuses and mastoid air cells are well aerated. There is no displaced rich rial fracture. There is no intracranial hemorrhage, midline shift, mass effect, or ventricular enlargement. There i s extensive periventricular, deep, and subcortical white matter hypodensity suggesting small-vessel d isease, right greater than left. If there is clinical concern for an acute infarction, followup brai n MRI advised. IMPRESSION: White matter hypodensity as described above. No intracranial hemorrhage. POS: [facility]
[2018-05-07 10:04] LABS: CKMB 2.4 ng/mL (0-6.6); Troponin I 0.013 ng/mL (< 0.028)
[2018-05-07 11:36] LABS: Bilirubin Negative (Negative); Blood, Urine Negative (Negative); Clarity CLEAR (Clear); Glucose, Urine (Dipstick) 250 mg/dL (Negative); Leukocyte Negative (Negative); Nitrite Negative (Negative); Protein, Urine (Dipstick) Negative (Neg-Trace); Specific Gravity, Urine 1.013 (1.002-1.036); pH, Urine 5.5 (5.0-9.0)
[2018-05-07] MEDS: Ondansetron ODT 4 MG TAB PO PRN (15:02)
--- NOTE | 2018-05-07 15:54 | MRI ---
MRI OF THE BRAIN WITHOUT CONTRAST: COMPARISON: 01/02/18. HISTORY: Generalized weakness with recent fall. Concern for posterior circulation CVA. TECHNIQUE: Multiplanar multisequence MRI images were obtained of the brain without contrast. FINDINGS: There are numerous scattered foci of high FLAIR signal in the subcortical and periventricular white m atter, likely secondary to small-vessel ischemic disease. In the left periventricular white matter, there is a small sub-millimeter focus of restricted diffusion which likely represents an acute lacuna r infarction. No restricted diffusion is seen in the posterior circulation. There is no evidence of hydrocephalus, intracranial hemorrhage, or extraaxial fluid collection. The expected flow voids are present. The corpus callosum, pituitary, and craniocervical junction are unr emarkable. The calvarium and overlying soft tissues are unremarkable. The visualized paranasal sinuses and mast oid air cells are well aerated. IMPRESSION: Extensive small-vessel ischemic disease with a small area of infarction in the left periventricular w alia matter. POS: [facility]
[2018-05-07] MEDS: chlorproMAZINE HCl 25 MG TAB PO PRN (16:18)
[2018-05-07 18:32] LABS: CKMB 2.1 ng/mL (0-6.6); Troponin I 0.012 ng/mL (< 0.028)
[2018-05-07] MEDS: Atorvastatin Calcium 40 MG TAB PO SCH (20:26)
[2018-05-07 21:24] LABS: Troponin I Less than 0.010 ng/mL (< 0.028)
--- NOTE | 2018-05-08 01:43 | CON ---
DATE OF CONSULTATION: 05/07/2018 CONSULTING PHYSICIAN: Stalin Juan MD REQUESTING PHYSICIAN: [facility] with Dr. Carli Calderón. REASON FOR CONSULTATION: Acute on chronic kidney disease. IMPRESSION: 1. Acute on chronic kidney disease. This is likely prerenal in the context of gastrointestinal loss and poor p.o. intake. 2. Chronic kidney disease. 3. Complex right renal cyst, query type. PLAN: 1. Rehydrate this patient with IV fluid. 2. Renally dose all medications for low GFR. 3. Avoid nephrotoxic agents. 4. Urologic evaluation recommended given the complex cyst noted on ultrasound incidentally. 5. Further management will be dependent on the clinical course. HISTORY OF PRESENT ILLNESS: History is that of 62-year-old gentleman with chronic kidney disease, ba seline creatinine of about 1.3, who presented here with nausea, vomiting, and poor p.o. intake and no radha with a creatinine above 2. As a result of this, decision was taken to involve Renal in the manag ement of this case. The patient denies any current use of illicit drug, but did claim to have stoppe d illicit drug about 3 months ago. The patient denies cigarette smoking and gave a history of one-ti me episode of passing blood clots in the urine. Otherwise, the patient does not have any other urina ry symptoms. PAST MEDICAL HISTORY: Significant for diabetes mellitus; chronic kidney disease, stage 3; dyslipidem ia. MEDICATIONS: Reviewed and as documented on [facility]. SOCIAL HISTORY: Significant for cocaine use, but claimed to have quit about 3 months ago. Denies al cohol or tobacco use. FAMILY HISTORY: Significant for kidney disease in a grandfather and several family members with diab etes and hypertension. REVIEW OF SYSTEMS: As documented in the body of the history. All the other systems were reviewed an d found not to be significantly related to present illness. PHYSICAL EXAMINATION: GENERAL: The patient was found not to be in any obvious distress, noted with the following vital sig ns. VITAL SIGNS: Afebrile with temperature 98.9, pulse 43, respiratory rate of 18, O2 saturation of 100% with a blood pressure of 153/77. HEENT: Unremarkable. Moist oral mucosa. NECK: Supple. No conjunctival injection or icterus. CARDIOVASCULAR SYSTEM: First and second heart sounds were heard. RESPIRATORY SYSTEM: Clear to auscultation. DIGESTIVE SYSTEM: Revealed a benign abdomen with positive bowel sounds. EXTREMITIES: No peripheral edema. SKIN: No new gross rash. LYMPHATICS: No peripheral lymphadenopathy. SUMMARY: A 62-year-old gentleman with chronic kidney disease stage 3, who presented here with acute on chronic kidney disease in the context of abdominal discomfort, nausea, and vomiting. We will ana cristina mmend holding the lisinopril and the metformin at this point until further improvement in the renal f unction is noted.
--- NOTE | 2018-05-08 02:16 | CON ---
DATE OF CONSULTATION: 05/07/2018 REFERRING PHYSICIAN: Dr. Cici Salmeron. REASON FOR CONSULTATION: Questionable stroke. HISTORY OF PRESENT ILLNESS: Mr. Little is a 62-year-old female, who has been c oncerned for evaluation of possible stroke. Patient reports that he started having abdominal pain wi th nausea, vomiting along with hiccups over the past several days. He has passed out three times in the past one week. He has also complained of having dizziness, lightheadedness, numbness, and tingli ng in both hands. He decided to present to the emergency room, as his symptoms were getting worse. He currently denies any headache, chest pain, palpitation, and dyspnea. PAST MEDICAL HISTORY: Significant for hypertension, diabetes, stroke in December, bipolar disorder, rodolfo izophrenia. PAST SURGICAL HISTORY: Significant for amputated third digit on left hand. FAMILY HISTORY: Significant for hypertension, diabetes, and dyslipidemia. SOCIAL HISTORY: He has a history of meth and cocaine use. He denies alcohol use. He denies illicit drug or smoking. CURRENT MEDICATIONS: Please review DEC. ALLERGIES: Include PENICILLIN. FAMILY HISTORY: Noncontributory. REVIEW OF SYSTEMS: As mentioned above in the HPI, otherwise was negative. PHYSICAL EXAMINATION: VITAL SIGNS: Blood pressure 137/80, pulse of 43, temperature of 98.9, respirations of 18, O2 sats of 100% on room air. GENERAL: Well-developed, well-nourished -[place] male in no apparent distress. RESPIRATORY: Clear to auscultation bilaterally. CARDIOVASCULAR: Regular rate and rhythm. NEUROLOGIC: Mental status: Patient is awake, alert, oriented x3. Speech and language: Fluent spee ch. Cranial nerves: Pupils are 3 mm and reactive. Visual rainey are intact. Extraocular muscles a re intact. No nystagmus noted. Face is symmetric. Tongue and uvula are midline. Motor exam showed normal tone and bulk with 5/5 strength in both upper and lower extremities. Sensory: Sensation is intact and symmetric. Deep tendon reflexes are 2+ reflexes in both upper and lower extremities. Bab inski: Plantar responses flexion bilaterally. Coordination intact to dccybd-huul-vzvlry and finger tapping bilaterally. LABORATORY DATA: Reviewed, which included CBC, BMP, CK-MB, troponin, lactic acid. Urinalysis and ur ine drug screen, which is significant for hemoglobin 13.7, hematocrit of 40.3. BUN of 53, creatinine of 2.46. Urine drug screen was positive for cocaine. IMAGING STUDIES: MRI brain without contrast was reviewed, which showed small punctate ischemic infar ct in the left periventricular white matter region. IMPRESSION: 1. Small acute left periventricular white matter region ischemic infarct. 2. Hypertension. 3. Polysubstance abuse. ASSESSMENT AND PLAN: Mr. Little is a pleasant 62-year-old -[place] male who presented w ith persistent nausea, vomiting, abdominal pain, hiccups, dizziness, and numbness in hands. He had a n MRI brain done, which showed a tiny small acute left periventricular white matter ischemic infarct. This lesion is unlikely to be the cause for his symptoms. This is likely incidental finding. His stroke is likely secondary to cocaine abuse, which can predispose to have vasoconstriction lead to th is stroke. I have discussed with the patient in detail and explained that he needs to stop using fermin ysubstances, as it can increase the risk for having future stroke. I will recommend continuing curre nt medical management and adding aspirin 325 mg daily for secondary stroke prevention. Consult PT, O T, speech therapy. No further neurological workup needed from my stand point. Thank you for your consultation.
[2018-05-08] MEDS: Lactated Ringer's 1,000 ML IV SCH (02:51)
[2018-05-08] MEDS: Ondansetron ODT 4 MG TAB PO PRN ×2 (04:26→15:53)
[2018-05-08] MEDS: chlorproMAZINE HCl 25 MG TAB PO PRN ×2 (04:26→18:27)
[2018-05-08 05:21] LABS: Anion Gap 9 mmol/L (10-20); BUN (Urea Nitrogen) 23 mg/dL (8.4-25.7); Calc. Creatinine Clearance 65 mL/min (70-130); Calcium 8.8 mg/dL (7.8-10.44); Carbon Dioxide 29 mmol/L (22-29); Chloride 103 mmol/L (98-107); Estimated GFR-MDRD 55; Glucose 80 mg/dL (70-105); Potassium 4.8 mmol/L (3.5-5.1); Sodium 136 mmol/L (136-145)
[2018-05-08 05:45] LABS: Eosinophils 1 % (0-10); Hemoglobin 13.7 g/dL (14.0-18.0); Lymphocytes 30 % (21-51); MDiff Complete? YES; Mean Corpuscular HGB CONC 33.9 g/dL (32.0-36.0); Mean Corpuscular Hemoglobin 31.3 pg (27.0-31.0); Mean Corpuscular Volume 92.6 fL (78.0-98.0); Mean Platelet Volume 6.9 fL (7.4-10.4); Monocytes 17 % (0-10); Neutrophil 47 % (42-75); PLT Morphology Comment Appears Adequate; Platelet Count 196 thou/uL (130-400); RBC Distribution Width 12.6 % (11.5-14.5); Reactive Lymphocytes 5 % (0-10); Red Blood Cell (RBC) Count 4.37 mill/uL (4.70-6.10); White Blood Cell (WBC) Count 4.7 thou/uL (4.8-10.8)
--- NOTE | 2018-05-08 06:05 | PDOC.FM ---
- Subjective Subjective: Pt complains of "hiccuping all night" and he hasn't slept at all. He did get 1 dose chlorpromazine last night around 7 and another this morning, doesn't believe them to be helping. Pt complains of sharp shooting pain under his left shoulder blade when he hiccups, and the feeling like "something is stuck" in his throat. Pt states he had EGD done about six years ago that showed "erosion and irreversible damage" from acid reflux. He is currently on protonix. He was bradycardic down to 40s from about 0330 to 0530 this morning. He had an episode yesterday around 1630 where he felt SOB and had tunneled vision when heart rate dropped to 30s for about six seconds, then increased to 42. He got an EKG at that time that showed bradycardia with concern for WAP vs junctional escape rhythm. - Objective MAR Reviewed: Yes Vital Signs & Weight: Vital Signs (12 hours) Temp Pulse Resp BP BP Pulse Ox 05/08/18 03:02 99.1 F 61 20 134/72 96 05/07/18 23:03 98.5 F 61 20 102/59 L 98 05/07/18 20:26 98.5 F 61 20 97 Weight Admit Weight 91.081 kg Weight 91.081 kg I&O: 05/06/18 05/07/18 05/08/18 06:59 06:59 06:59 Intake Total 380 1337 Output Total 700 1800 Balance -320 -723 Result Diagrams: 05/08/18 04:56 05/08/18 04:56 <Cici Salmeron - Last Filed: 05/08/18 09:32> - Objective Vital Signs & Weight: Vital Signs (12 hours) Temp Pulse Pulse Pulse Resp BP BP 05/08/18 15:59 99 F 57 L 16 05/08/18 11:27 99 F 59 L 18 05/08/18 10:07 60 55 L 134/80 126/68 05/08/18 09:35 60 59 L 160/80 H 124/77 05/08/18 07:42 99.5 F 54 L 16 05/08/18 07:27 99.5 F 54 L 16 BP Pulse Ox 05/08/18 15:59 176/87 H 97 05/08/18 11:27 158/87 H 98 05/08/18 10:07 05/08/18 09:35 05/08/18 07:42 91 L 05/08/18 07:27 128/79 98 Weight Admit Weight 91.081 kg Weight 91.081 kg I&O: 05/07/18 05/08/18 05/09/18 06:59 06:59 06:59 Intake Total 380 1337 Output Total 700 1800 Balance -320 -463 Result Diagrams: 05/08/18 04:56 05/08/18 04:56 <Priscilla Andino - Last Filed: 05/08/18 17:14> Phys Exam - Physical Examination HEENT: PERRLA, moist MMs, sclera anicteric pinpoint pupils bilaterally, sensitivity to light Neck: supple LAD Respiratory: no wheezing, no rales, no rhonchi, clear to auscultation bilateral Cardiovascular: RRR, no significant murmur Gastrointestinal: soft, no distention, positive bowel sounds TTP in epigastric area Musculoskeletal: no edema, pulses present Neurological: normal sensation, moves all 4 limbs Psychiatric: normal affect Skin: no rash, normal turgor, cap refill <2 seconds <Cici Salmeron - Last Filed: 05/08/18 09:32> Dx/Plan (1) Arm paresthesia, right Code(s): R20.2 - PARESTHESIA OF SKIN Status: Acute (2) Right leg paresthesias Code(s): R20.2 - PARESTHESIA OF SKIN Status: Acute (3) Weakness of right hand Code(s): R29.898 - OTH SYMPTOMS AND SIGNS INVOLVING THE MUSCULOSKELETAL SYSTEM Status: Acute (4) Intractable nausea and vomiting Code(s): R11.2 - NAUSEA WITH VOMITING, UNSPECIFIED Status: Acute (5) JANA (acute kidney injury) Code(s): N17.9 - ACUTE KIDNEY FAILURE, UNSPECIFIED Status: Acute (6) T wave inversion in EKG Code(s): R94.31 - ABNORMAL ELECTROCARDIOGRAM [ECG] [EKG] Status: Acute (7) Polysubstance abuse Code(s): F19.10 - OTHER PSYCHOACTIVE SUBSTANCE ABUSE, UNCOMPLICATED Status: Chronic (8) T2DM (type 2 diabetes mellitus) Status: Chronic (9) HTN (hypertension) Code(s): I10 - ESSENTIAL (PRIMARY) HYPERTENSION Status: Chronic (10) Asthma Code(s): J45.909 - UNSPECIFIED ASTHMA, UNCOMPLICATED Status: Chronic - Plan Plan: 1. Paresthesias, r/o TIA/CVA -Yesterday, pt reported numbness rt arm and leg new for past week, weakness 4/5 hand laster strength rt side; EOM was non congruent. Today sx of numbness have resolved -CT head showed: no embolism -MRI (05/07) showed tiny acute L periventricular white matter ischemic infarct -Dr. Serrato, neuro consulted 05/07 -per neuro, stroke likely 2/2 to cocaine and unlikely a cause of his sx - Cont. w/ high intensity statin, - increased aspirin to 325 per neurology recs for secondary prevention -Hx stroke in December. Recent CTA neck showing short segment mild stenosis of the proximal R-ICA. Recent MRI showing R-MCA stroke per neurology notes 2. 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 -Chlorpromazine was not reducing his hiccups and there was concern for development EPS, so switched today to metoclopramide to help with hiccups and constipation - Will have chlorpromazine available for hiccups which will also help w/ his N/ V as well. - Lipase 85 (05/07). Level not elevated enough for diagnosis of pancreatitis and recent CT-AP from earlier this year with normal lipase not suggestive of chronic pancreatitis. - Cont. w/ sucralfate and will add Protonix as well if this is 2/2 an ulcer - FOBT pending - Outside CT of abd normal, showed no acute pathology 3. Acute on Chronic kidney disease, JANA on CKD Stage 3 - Consulted Dr. Gant (Nephro) (05/07) -Acute on Chronic kidney dx, likely pre-renal in context of GI loss nad poor PO intake - Complex Rt renal cyst seen on RUQ U/S, -Urology eval recommended outpt -Renal function increasing from yesterday BUN/Cr 53/2.46 to 23/1.56 and GFR 55 - FeNa shows 1.15%, indicative of intrinsic renal disease - per pt, has hx of renal stones - UA neg 4. New onset T-wave inversions V5-V6 possibly due to demand vs substance abuse - Pt denies any current chest pain and initial cardiac enzymes negative - Reportedly from ER, pt w/ new t-wave inversions in leads V5-V6 from prior EKG. We were unable to locate his prior EKG, but per the ER records from his 2017 admission these did not appear on the ER physician's read. - Initial enzymes negative. Trop negx2. Acute ischemia causing this seems unlikely at this time. - Trops continue to be neg, CK trending down now 2.1. Discontinued - UDS: + for cocaine. will not administer any beta blockers. 6. Bradycardic episode down to 30, concern for WAP vs junctional escape rhythm -Pulse hung in low 40s yesterday, with an episode down to 30 BPM around 1630. Pt was symptomatic with "tunnel vision" and felt SOB. Happened while ambulating. Pt told to tell nursing right away if he had another episode. Pt stable overnight ~ from 40s from [id number], then stayed around 60 bpm after 0530. -Cardiology consulted yesterday, appreciate recs. -Trop and CK neg -Will continue to monitor on Tele 7. Elevated CK likely 2/2 #2 vs polysubstance use, resolved. - Will give gentle fluids in the setting of CHF - Likely 2/2 decreased volume status vs drug use - Levels not elevated enough for concern for rhabdo at this time - Trending down, CK discontinued. 8. Polysubstance abuse - Pt w/ pinpoint pupils on exam and endorsed hx of substance abuse - UDS +Cocaine 9. T2DM - ACHS accuchecks and sliding scale - hold metformin in setting of JANA 10. HTN - Will hold lisinopril in the setting of JANA - PRN IV medications available - Currently stable 11. Asthma - Pt not on any home inhalers and vitals stable with no wheezing - Will cont. to monitor. PRN duonebs will be available. 12. Bipolar, schizophrenia hx - continue home abilify CODE STATUS: FULL CODE <Cici Salmeron - Last Filed: 05/08/18 09:32> Attending Addendum - Attending Addendum Date/Time: 05/08/18 [id number] I personally evaluated the patient and discussed the management with Dr. Vanessa Salmeron I agree with the History, Examination, Assessment and Plan documented above with any addition or exceptions noted below- Patient reports he did not sleep well as his hiccups had recurred. Currently does not have any. Still feeling weak with ambulation. Afebrile VSS. A/P: 1) Small lacunar CVS- appreciate neurology recommendations. Continue ASA 325 mg. PT/OT evals. 2) Bradycardia- appreciate cardiology assistance. Uncertain whether patient's symptoms cirrelate with bradycardia. Patient does endorse easy fatigability with ambulation and had apparent syncopal episode at home. May need event monitor for further evaluation. 30 JANA with CKD (stage 3)- now back to baseline. 4) D/ cplanning- may need SNU/swing bed for deconditioning <Priscilla Andino - Last Filed: 05/08/18 17:14>
[2018-05-08] MEDS: Sucralfate 1 GM TAB PO SCH ×3 (08:06→21:03)
[2018-05-08] MEDS: Aspirin 81 mg Enteric Coated Tablet PO SCH (08:06)
[2018-05-08] MEDS: Aripiprazole 10 MG TAB PO SCH (08:06)
[2018-05-08] MEDS: Pantoprazole 40 MG GRANULES PACKET PO SCH (08:06)
[2018-05-08] MEDS: Enoxaparin Sodium 30 MG/0.3 ML SYRINGE SC SCH (08:06)
[2018-05-08] MEDS ORDERED: Metoclopramide HCl 10 MG TAB PO PRN (08:50)
[2018-05-08] MEDS ORDERED: Docusate 100 MG CAP PO PRN (08:51)
[2018-05-08] MEDS: Aspirin 325 MG TAB PO SCH (09:08)
--- NOTE | 2018-05-08 12:01 | PRG ---
DATE OF SERVICE: 05/08/2018 The patient was seen and examined, feeling better. PHYSICAL EXAMINATION: VITAL SIGNS: Afebrile with temperature 99, pulse 59, respiration rate of 18, O2 saturation 98%, bloo d pressure 158/87. HEENT: Unremarkable. CARDIOVASCULAR: First and second heart sounds were heard. RESPIRATORY: Clear to auscultation. DIGESTIVE: Revealed a benign abdomen with positive bowel sounds. EXTREMITIES: No peripheral edema. SKIN: No new gross rash. LYMPHATICS: No peripheral lymphadenopathy. LABORATORY AND X-RAY FINDINGS: Significant for creatinine that has gone down to 1.56. IMPRESSION: Acute on chronic kidney disease which is gradually improving. PLAN: 1. Discontinue IV fluid. 2. Continue renal supportive measures. 3. Outpatient Nephrology followup status post discharge recommended.
[2018-05-08] MEDS ORDERED: Amlodipine 5 MG TAB PO SCH (17:15)
--- NOTE | 2018-05-08 17:54 | PRG ---
DATE OF SERVICE: 05/08/2018 SUBJECTIVE: Mr. Little's status is unchanged. No current symptoms. I did review his telemetry monitoring. He has had intermittent episodes of PAC's in a bigeminal mik laura. Heart rates are in the upper 40s. No current symptoms. OBJECTIVE: VITAL SIGNS: Blood pressure 176/87, pulse 60, temperature 99. LUNGS: Clear to auscultation. CARDIAC: Regular rate and rhythm with extra systolic beats. ABDOMEN: Soft, nontender, nondistended. EXTREMITIES: No edema. PERTINENT LABORATORY DATA: Followup creatinine of 1.56. IMPRESSION: 1. Nausea and vomiting -- resolved. 2. Bradycardia -- not felt to be symptomatic. We would recommend a 3-week event recorder to assess for any significant dysrhythmias. We will avoid beta ginny therapy and calcium channel blockade. 3. Acute on chronic kidney disease -- his creatinine may return to normal. If so, would recommend A CE inhibitor therapy. If it does not return to normal, then recommend Norvasc. 4. Certainly a difficult situation given continued illicit drug use, especially methamphetamines inc reasing his risk for infection. A pacemaker is indicated.
--- NOTE | 2018-05-08 18:07 | CON ---
DATE OF CONSULTATION: 05/07/2018 REASON FOR CONSULTATION: Bradycardia. HISTORY OF PRESENT ILLNESS: Mr. Little is a 62-year-old gentleman who recently presented with p ersistent nausea, vomiting, and hiccups. No syncope, presyncope present. The only related symptoms seemed to be dizziness, mainly occurs upon standing. No chest pain or pressure noted. No shortness of breath. He recently had a stroke in 12/2017. At that time, his LVEF was estimated at 35%-40%. U nfortunately, he continues to abuse illicit drugs. He is positive for cocaine use. He also gives a history positive for recent methamphetamine use. PAST MEDICAL HISTORY: Hypertension, diabetes mellitus, CVA, bipolar disorder, cardiomyopathy of unkn own etiology, schizophrenia. SOCIAL HISTORY: As above. HOME MEDICATIONS: Sucralfate, metformin, Lipitor, aspirin, and Zestril. REVIEW OF SYSTEMS: 10-point review of systems is reviewed and as above, otherwise negative. PHYSICAL EXAMINATION: GENERAL: Patient is a pleasant male who is in no acute distress. The patient appears older than sta radha age. VITAL SIGNS: Blood pressure 107/71, pulse 54, temperature 97.1. NEUROLOGIC: The patient is alert and oriented times 3 with no focal neurologic deficits. HEENT: Sclerae without icterus. Mouth has moist mucous membranes with normal pallor. NECK: No JVD. Carotid upstroke brisk. No bruits bilaterally. LUNGS: Clear to auscultation with unlabored respirations. BACK: No scoliosis or kyphosis. CARDIAC: Regular rate and rhythm with normal S1 and S2. No S3 or S4 noted. No significant rubs, murmurs, thrills, or gallops noted throughout the precordium. PMI is not displaced. There is no parasternal heave. ABDOMEN: Soft, nontender, nondistended. No peritoneal signs present. No hepatosplenomegaly. No abnormal striae. EXTREMITIES: 2+ femoral and 2+ dorsalis pedis pulses. No cyanosis, clubbing, or edema. SKIN: No gross abnormalities. PERTINENT LABORATORY DATA: Creatinine 2.46. EKG shows normal sinus rhythm with nonspecific ST-T wave changes. Bradycardia present. IMPRESSION: 1. Persistent nausea, vomiting, and hiccups. 2. Dizziness. 3. Cardiomyopathy. 4. Illicit drug use. RECOMMENDATIONS: I do not see a correlation between bradycardia and the patient's symptoms. The low est heart rate I have seen is in the mid to upper 40s. This does not correlate with symptoms. I anibal l hold all beta ginny therapy and calcium channel blockade at this time. Continue with IV fluids, given increase in creatinine. Counseled on not using cocaine, although he has been positive in the p ast and unfortunately continues. We would agree with monitoring overnight. If felt to be stable, we would recommend a 3-week event recorder to assess for significant dysrhythmias including symptomatic bradycardia, correlating with symptoms.
[2018-05-08] MEDS: Atorvastatin Calcium 40 MG TAB PO SCH (21:03)
[2018-05-09] MEDS: Ondansetron ODT 4 MG TAB PO PRN ×2 (03:43→19:53)
--- NOTE | 2018-05-09 05:32 | PDOC.FM ---
- Subjective Subjective: Pt had intermittent fever overnight, up to 102.8. WBC increased from 4 yest to 10 today. Pt also had episode of wandering and confusion over shift change last night per nursing, at this time he was complaining of chest pain. He continues to have nausea, which is improved with zofran. Upon exam today hiccups were resolved and pt sleeping, but per nursing he was awake and hiccuping all night. 1 episode of SVT lasting 10 beats around 2003 last night (05/08). Do not know if he had sx at that time. FOBT returned, + for blood this morning. - Objective Vital Signs & Weight: Vital Signs (12 hours) Temp Pulse Resp BP Pulse Ox 05/09/18 02:42 99.8 F H 75 18 127/69 97 05/08/18 23:13 101.6 F H 78 22 H 105/57 L 94 L 05/08/18 20:20 102.8 F H 85 20 139/83 96 05/08/18 18:27 57 L Weight Admit Weight 91.081 kg Weight 91.081 kg I&O: 05/07/18 05/08/18 05/09/18 06:59 06:59 06:59 Intake Total 380 1337 720 Output Total 700 1800 580 Balance -320 -463 140 Result Diagrams: 05/09/18 04:53 05/09/18 04:53 <Cici Salmeron - Last Filed: 05/09/18 08:50> - Objective Vital Signs & Weight: Vital Signs (12 hours) Temp Pulse Pulse Pulse Resp BP BP 05/09/18 15:39 98.4 F 68 16 05/09/18 14:30 61 52 L 103/66 117/73 05/09/18 12:00 98.2 F 78 16 BP Pulse Ox 05/09/18 15:39 97/54 L 92 L 05/09/18 14:30 05/09/18 12:00 118/85 96 Weight Admit Weight 91.081 kg Weight 90.265 kg I&O: 05/08/18 05/09/18 05/10/18 06:59 06:59 06:59 Intake Total 1337 1620 2160 Output Total 1800 1655 1160 Balance -463 -35 1000 Result Diagrams: 05/09/18 04:53 05/09/18 04:53 <Priscilla Andino - Last Filed: 05/09/18 21:07> Phys Exam - Physical Examination Constitutional: NAD (sleeping on exam.) Respiratory: no wheezing, no rales, no rhonchi, clear to auscultation bilateral Cardiovascular: RRR, no significant murmur Gastrointestinal: soft, no distention Musculoskeletal: no edema, pulses present <JaronCici - Last Filed: 05/09/18 08:50> Dx/Plan (1) Fever Code(s): R50.9 - FEVER, UNSPECIFIED Status: Acute (2) Arm paresthesia, right Code(s): R20.2 - PARESTHESIA OF SKIN Status: Acute (3) Right leg paresthesias Code(s): R20.2 - PARESTHESIA OF SKIN Status: Acute (4) Weakness of right hand Code(s): R29.898 - OTH SYMPTOMS AND SIGNS INVOLVING THE MUSCULOSKELETAL SYSTEM Status: Acute (5) Intractable nausea and vomiting Code(s): R11.2 - NAUSEA WITH VOMITING, UNSPECIFIED Status: Acute (6) JANA (acute kidney injury) Code(s): N17.9 - ACUTE KIDNEY FAILURE, UNSPECIFIED Status: Acute (7) T wave inversion in EKG Code(s): R94.31 - ABNORMAL ELECTROCARDIOGRAM [ECG] [EKG] Status: Acute (8) Polysubstance abuse Code(s): F19.10 - OTHER PSYCHOACTIVE SUBSTANCE ABUSE, UNCOMPLICATED Status: Chronic (9) T2DM (type 2 diabetes mellitus) Status: Chronic (10) HTN (hypertension) Code(s): I10 - ESSENTIAL (PRIMARY) HYPERTENSION Status: Chronic (11) Asthma Code(s): J45.909 - UNSPECIFIED ASTHMA, UNCOMPLICATED Status: Chronic - Plan Plan: Fever of Unknown Origin -Intermittent fever last night, up to 102.8. Tachypneic up to R 22. WBC increased from 4.7 to 10.4 today. Blood and urine cultures pending, CXR ordered. Empiric Vanc and zosyn started (Vanc renally dosed). LA pending. 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 -Chlorpromazine was not reducing his hiccups and there was concern for development EPS, so switched to metoclopramide to help with hiccups and constipation - Lipase 85 (05/07). Level not elevated enough for diagnosis of pancreatitis and recent CT-AP from earlier this year with normal lipase not suggestive of chronic pancreatitis. - Cont. w/ sucralfate and will add Protonix as well if this is 2/2 an ulcer - FOBT positive -Refer outpt for colonoscopy upon discharge - Outside CT of abd normal, showed no acute pathology Acute on Chronic kidney disease, JANA on CKD Stage 3 - Consulted Dr. Gant (Nephro) (05/07) -Acute on Chronic kidney dx, likely pre-renal in context of GI loss nad poor PO intake - Complex Rt renal cyst seen on RUQ U/S, -Urology eval recommended outpt -Renal function improved today from 23/1.56 to 14/1.51 - FeNa shows 1.15%, indicative of intrinsic renal disease - per pt, has hx of renal stones - UA neg New onset T-wave inversions V5-V6 possibly due to demand vs substance abuse - Pt denies any current chest pain and initial cardiac enzymes negative - Reportedly from ER, pt w/ new t-wave inversions in leads V5-V6 from prior EKG. We were unable to locate his prior EKG, but per the ER records from his 2017 admission these did not appear on the ER physician's read. - Initial enzymes negative. Trop negx2. Acute ischemia causing this seems unlikely at this time. - Trops continue to be neg, CK trending down now 2.1. Discontinued - UDS: + for cocaine. will not administer any beta blockers. Bradycardic episode down to 30, concern for WAP vs junctional escape rhythm -Pulse hung in low 40s yesterday, with an episode down to 30 BPM around 1630. Pt was symptomatic with "tunnel vision" and felt SOB. Happened while ambulating. Pt told to tell nursing right away if he had another episode. Pt stable overnight ~ from 40s from [id number], then stayed around 60 bpm after 0530. -Cardiology consulted yesterday, appreciate recs. -Trop and CK neg -Will continue to monitor on Tele -Episode of SVT lasting 10 beats on 05/08 @ 2003. Paresthesias, r/o TIA/CVA -Yesterday, pt reported numbness rt arm and leg new for past week, weakness 4/5 clothing busheler strength rt side; EOM was non congruent. Today sx of numbness have resolved -CT head showed: no embolism -MRI (05/07) showed tiny acute L periventricular white matter ischemic infarct -Dr. Serrato, neuro consulted 05/07 -per neuro, stroke likely 2/2 to cocaine and unlikely a cause of his sx - Cont. w/ high intensity statin, - increased aspirin to 325 per neurology recs for secondary prevention -Hx stroke in December. Recent CTA neck showing short segment mild stenosis of the proximal R-ICA. Recent MRI showing R-MCA stroke per neurology notes Elevated CK likely 2/2 #2 vs polysubstance use, resolved. - Will give gentle fluids in the setting of CHF - Likely 2/2 decreased volume status vs drug use - Levels not elevated enough for concern for rhabdo at this time - Trending down, CK discontinued. Polysubstance abuse - Pt w/ pinpoint pupils on exam and endorsed hx of substance abuse - UDS +Cocaine T2DM - ACHS accuchecks and sliding scale - hold metformin in setting of JANA HTN - Will hold lisinopril in the setting of JANA - PRN IV medications available - Currently stable Asthma - Pt not on any home inhalers and vitals stable with no wheezing - Will cont. to monitor. PRN duonebs will be available. Bipolar, schizophrenia hx - continue home abilify CODE STATUS: FULL CODE <Cici Salmeron - Last Filed: 05/09/18 08:50> Attending Addendum - Attending Addendum Date/Time: 05/09/182100 I personally evaluated the patient and discussed the management with Dr. Vanessa Salmeron I agree with the History, Examination, Assessment and Plan documented above with any addition or exceptions noted below- Patient states that he still is having trouble sleeping at night due to hiccups. Denies any cough, SOB. Still feeling weak when ambulating. Tm 102.8 VSS. A/P: 1) Fever- blood and urine cultures obtained. CXR negative. Started on empiric abx. Continue abx. CT stone protocol as patient has h/o kidneys stones. 2) Intractable hiccups- will place on scheduled reglan. 3) Lacunar CVA- stable; continue ASA. 4) JANA on CKD- improved <Priscilla Andino - Last Filed: 05/09/18 21:07>
[2018-05-09 06:22] LABS: Band 13 % (5-11); Hemoglobin 14.1 g/dL (14.0-18.0); Lymphocytes 30 % (21-51); MDiff Complete? YES; Mean Corpuscular HGB CONC 32.9 g/dL (32.0-36.0); Mean Corpuscular Hemoglobin 30.4 pg (27.0-31.0); Mean Corpuscular Volume 92.5 fL (78.0-98.0); Mean Platelet Volume 7.7 fL (7.4-10.4); Monocytes 8 % (0-10); Neutrophil 49 % (42-75); PLT Morphology Comment Appears Adequate; Platelet Count 206 thou/uL (130-400); RBC Distribution Width 12.5 % (11.5-14.5); Red Blood Cell (RBC) Count 4.64 mill/uL (4.70-6.10); White Blood Cell (WBC) Count 10.4 thou/uL (4.8-10.8)
[2018-05-09 06:29] LABS: Anion Gap 13 mmol/L (10-20); BUN (Urea Nitrogen) 14 mg/dL (8.4-25.7); Calc. Creatinine Clearance 67 mL/min (70-130); Calcium 9.4 mg/dL (7.8-10.44); Carbon Dioxide 28 mmol/L (22-29); Chloride 98 mmol/L (98-107); Estimated GFR-MDRD 57; Glucose 82 mg/dL (70-105); Potassium 4.8 mmol/L (3.5-5.1); Sodium 134 mmol/L (136-145)
--- NOTE | 2018-05-09 06:46 | PDOC.CTH ---
Cardiology Progress Note - Objective Vital Signs Temp Pulse Resp BP Pulse Ox 05/09/18 02:42 99.8 F H 75 18 127/69 97 05/08/18 23:13 101.6 F H 78 22 H 105/57 L 94 L 05/08/18 20:20 102.8 F H 85 20 139/83 96 Admit Weight 200 lb 12.8 oz Weight 199 lb 05/07/18 05/08/18 05/09/18 06:59 06:59 06:59 Intake Total 380 1337 1620 Output Total 700 1800 1655 Balance -320 -463 -35 - Labs Result Diagrams: 05/09/18 04:53 05/09/18 04:53 Troponin/CKMB CK-MB (CK-2) 2.1 ng/mL (0-6.6) 05/07/18 17:49 Troponin I Less than 0.010 ng/mL (< 0.028) 05/07/18 20:35 - Assessment/Plan 1. Bradycardia 2. Cocaine, methaphetamine use 3. N/V 4. Hiccups Fever of 102 overnight After reviewing strips yesterday, no correlation between bradycardia and symptoms. Refrain from cocaine Pt appears euvolemic Avoid BB Echo given recent fever and methaphetamine use
[2018-05-09 08:58] LABS: Bilirubin Negative (Negative); Blood, Urine Trace (Negative); Clarity CLEAR (Clear); Glucose, Urine (Dipstick) 100 mg/dL (Negative); Leukocyte Negative (Negative); Nitrite Negative (Negative); Protein, Urine (Dipstick) Negative (Neg-Trace); Specific Gravity, Urine 1.005 (1.002-1.036)
[2018-05-09 09:00] LABS: Bacteria/HPF None Seen HPF (None Seen); Hyaline Casts/LPF 0-3 HYALINE CAST LPF (0-3 Hyaline); RBC/HPF 0-3 HPF (0-3); Squamous Epithelial None Seen HPF (0-3); WBC/HPF None Seen HPF (0-3)
[2018-05-09] MEDS: Vancomycin HCl 1.75 GM in Sodium Chloride 0.9% 500 ML IVPB SCH (09:08)
[2018-05-09] MEDS: Pantoprazole 40 MG GRANULES PACKET PO SCH (09:08)
[2018-05-09] MEDS: Acetaminophen 500 MG TAB PO PRN ×2 (09:08→19:53)
[2018-05-09] MEDS: Enoxaparin Sodium 40 MG/0.4 ML SYRINGE SC SCH (09:08)
[2018-05-09] MEDS: Sucralfate 1 GM TAB PO SCH ×3 (09:09→19:53)
[2018-05-09] MEDS: chlorproMAZINE HCl 25 MG TAB PO PRN (09:09)
[2018-05-09] MEDS: Aspirin 325 MG TAB PO SCH (09:09)
[2018-05-09] MEDS: Aripiprazole 10 MG TAB PO SCH (09:09)
--- NOTE | 2018-05-09 09:33 | RAD ---
2 VIEWS CHEST: Date: 05/09/18 COMPARISON: 05/06/18. HISTORY: Fever. FINDINGS/IMPRESSION: Two views of the chest show normal sized cardiomediastinal silhouette. There is no evidence of consol idation, mass, or pleural effusion. The bones are unremarkable. IMPRESSION: No evidence of acute cardiopulmonary disease. POS: [facility]
[2018-05-09 10:39] LABS: Lactic Acid 0.9 mmol/L (0.5-2.2)
--- NOTE | 2018-05-09 13:02 | CT ---
CT ABDOMEN AND PELVIS NONCONTRAST: CLINICAL HISTORY: Renal calculi. Back pain. Fever. COMPARISON: 05/06/2018 FINDINGS: There is no discrete urolithiasis or evidence of obstructive uropathy. There is a stable hypodensity of the right kidney, incompletely assessed by noncontrast CT imaging. Minimal subpleural patchy den sities are seen at the lung bases. Scattered colonic diverticula are present. Stable linear calcifi cation is seen within the appendix. Vascular calcifications are present. There is a noninflamed, fa t-containing left inguinal hernia. Evaluation is otherwise limited on the basis of noncontrast CT im aging. IMPRESSION: 1. No urolithiasis or obstructive uropathy. 2. Additional details as described above. POS: [facility]
[2018-05-09] MEDS: Sodium Chloride 0.9% 1,000 ML IV SCH (13:31)
[2018-05-09] MEDS: Piperacillin/Tazobactam 3.375 GM in Sodium Chloride 0.9% 100 ML IVPB SCH ×3 (13:31→23:45)
[2018-05-09 14:02] VITALS: BMI 29.3
[2018-05-09] MEDS: Metoclopramide HCl 10 MG TAB PO SCH ×2 (14:24→21:48)
[2018-05-09] MEDS: Atorvastatin Calcium 40 MG TAB PO SCH (19:53)
[2018-05-09] MEDS: traMADol HCl 50 MG TAB PO PRN (22:26)
--- NOTE | 2018-05-10 00:29 | PRG ---
DATE OF SERVICE: 05/09/2018 SUBJECTIVE: The patient was seen and examined with no new compliant noted with the following vital s igns. PHYSICAL EXAMINATION: VITAL SIGNS: Afebrile with temperature 98.4, pulse 68, respiratory rate 16, O2 sat of 92% with blood pressure 97/54. HEENT: Unremarkable with moist oral mucosa. NECK: Supple. No conjunctival injection or icterus. CARDIOVASCULAR: First and second heart sounds were heard. RESPIRATORY: Clear to auscultation. DIGESTIVE: Revealed a benign abdomen with positive bowel sounds. EXTREMITIES: No peripheral edema. SKIN: No new gross rash. LYMPHATICS: No peripheral lymphadenopathy. LABORATORY INVESTIGATIONS: Showed a creatinine down to 1.51. IMPRESSION: Acute on chronic kidney disease which seems to have improved quite remarkably. PLAN: 1. Continue renal supportive measures. 2. Further management to be dependent on the clinical course.
[2018-05-10] MEDS: Sodium Chloride 0.9% 1,000 ML IV SCH ×3 (02:16→23:51)
[2018-05-10] MEDS: traMADol HCl 50 MG TAB PO PRN ×2 (04:15→17:41)
[2018-05-10 05:53] LABS: Anion Gap 9 mmol/L (10-20); BUN (Urea Nitrogen) 15 mg/dL (8.4-25.7); Calc. Creatinine Clearance 66 mL/min (70-130); Calcium 8.7 mg/dL (7.8-10.44); Carbon Dioxide 28 mmol/L (22-29); Chloride 103 mmol/L (98-107); Estimated GFR-MDRD 56; Glucose 96 mg/dL (70-105); Potassium 4.6 mmol/L (3.5-5.1); Sodium 135 mmol/L (136-145)
[2018-05-10] MEDS: Metoclopramide HCl 10 MG TAB PO SCH (05:56)
[2018-05-10] MEDS: Piperacillin/Tazobactam 3.375 GM in Sodium Chloride 0.9% 100 ML IVPB SCH ×4 (05:56→23:51)
--- NOTE | 2018-05-10 06:21 | PDOC.FM ---
- Subjective Subjective: 62 y M here for symptomatic bradycardia. Fevered yesterday intermittently, last fever 1900 yesterday up to 100.6. On Vanc and zosyn. Bradycardic in the 50-60s overnight, which is an improvement from the 40s earlier in his admission. Pt complains of continued rt frontal headache, improved with 2 doses tramadol last night. Denies sx of dizziness while ambulating yesterday. Continues to have extended episodes of hiccups and burping. Echo today. - Objective Vital Signs & Weight: Vital Signs (12 hours) Temp Pulse Resp BP BP Pulse Ox 05/10/18 04:13 98.9 F 58 L 16 123/74 94 L 05/09/18 20:17 99.1 F 64 18 95 05/09/18 20:11 99.1 F 64 18 110/62 95 Weight Admit Weight 91.081 kg Weight 91.263 kg I&O: 05/08/18 05/09/18 05/10/18 06:59 06:59 06:59 Intake Total 1337 1620 3913 Output Total 1800 1655 2185 Balance -463 -35 1728 Result Diagrams: 05/10/18 04:41 05/10/18 04:41 <Cici Salmeron - Last Filed: 05/10/18 09:04> - Objective Vital Signs & Weight: Vital Signs (12 hours) Temp Pulse Resp BP BP Pulse Ox 05/10/18 19:55 98.1 F 56 L 18 134/81 98 05/10/18 15:22 97.5 F L 55 L 16 134/65 97 05/10/18 11:22 98 F 62 16 115/64 96 Weight Admit Weight 91.081 kg Weight 91.263 kg I&O: 05/09/18 05/10/18 05/11/18 06:59 06:59 06:59 Intake Total 1620 3913 3000 Output Total 1655 2185 1180 Balance -35 1728 1820 Result Diagrams: 05/10/18 04:41 05/10/18 04:41 <Priscilla Andino - Last Filed: 05/10/18 21:45> Phys Exam - Physical Examination Respiratory: no wheezing, no rales, no rhonchi, clear to auscultation bilateral Cardiovascular: no significant murmur, no rub, irregular Gastrointestinal: soft, no distention TTP left of umbilicus, unchanged from prior Musculoskeletal: no edema, pulses present Psychiatric: normal affect <MirichantalMiyaCici - Last Filed: 05/10/18 09:04> Dx/Plan (1) Fever Code(s): R50.9 - FEVER, UNSPECIFIED Status: Acute (2) Arm paresthesia, right Code(s): R20.2 - PARESTHESIA OF SKIN Status: Acute (3) Right leg paresthesias Code(s): R20.2 - PARESTHESIA OF SKIN Status: Acute (4) Weakness of right hand Code(s): R29.898 - OTH SYMPTOMS AND SIGNS INVOLVING THE MUSCULOSKELETAL SYSTEM Status: Acute (5) Intractable nausea and vomiting Code(s): R11.2 - NAUSEA WITH VOMITING, UNSPECIFIED Status: Acute (6) JANA (acute kidney injury) Code(s): N17.9 - ACUTE KIDNEY FAILURE, UNSPECIFIED Status: Acute (7) T wave inversion in EKG Code(s): R94.31 - ABNORMAL ELECTROCARDIOGRAM [ECG] [EKG] Status: Acute (8) Polysubstance abuse Code(s): F19.10 - OTHER PSYCHOACTIVE SUBSTANCE ABUSE, UNCOMPLICATED Status: Chronic (9) T2DM (type 2 diabetes mellitus) Status: Chronic (10) HTN (hypertension) Code(s): I10 - ESSENTIAL (PRIMARY) HYPERTENSION Status: Chronic (11) Asthma Code(s): J45.909 - UNSPECIFIED ASTHMA, UNCOMPLICATED Status: Chronic - Plan Plan: Fever of Unknown Origin -Intermittent fever last night, up to 102.8. Tachypneic up to R 22. WBC increased from 4.7 to 10.4 today. Blood and urine cultures pending, CXR neg, UA neg. Empiric Vanc and zosyn started (Vanc renally dosed). LA .9. -Per Cardiology recommendation, ECHO today. 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 -Chlorpromazine was not reducing his hiccups and there was concern for development EPS, so switched to metoclopramide to help with hiccups and constipation - Lipase 85 (05/07). Level not elevated enough for diagnosis of pancreatitis and recent CT-AP from earlier this year with normal lipase not suggestive of chronic pancreatitis. - Cont. w/ sucralfate and will add Protonix as well if this is 2/2 an ulcer - FOBT positive -Refer outpt for colonoscopy upon discharge - Outside CT of abd normal, showed no acute pathology Acute on Chronic kidney disease, JANA on CKD Stage 3 - Consulted Dr. Gant (Nephro) (05/07) -Acute on Chronic kidney dx, likely pre-renal in context of GI loss nad poor PO intake - Complex Rt renal cyst seen on RUQ U/S, -Urology eval recommended outpt -Renal function improved to BUN/Cr 15/1.54 - FeNa shows 1.15%, indicative of intrinsic renal disease - CT stone protocol: showed no kidney stones; did reveal Left non inflamed inguinal hernia, and minimal sub pleural patchy densities - UA neg New onset T-wave inversions V5-V6 possibly due to demand vs substance abuse - Pt denies any current chest pain and initial cardiac enzymes negative - Reportedly from ER, pt w/ new t-wave inversions in leads V5-V6 from prior EKG. We were unable to locate his prior EKG, but per the ER records from his 2017 admission these did not appear on the ER physician's read. - Initial enzymes negative. Trop negx2. Acute ischemia causing this seems unlikely at this time. - Trops continue to be neg, CK trending down now 2.1. Discontinued - UDS: + for cocaine. will not administer any beta blockers. Bradycardic episode down to 30, concern for WAP vs junctional escape rhythm -Pulse hung in low 40s 05/07-05/08, with an episode down to 30 BPM around 1630. Pt was symptomatic with "tunnel vision" and felt SOB. Happened while ambulating. Pt told to tell nursing right away if he had another episode. Pt stable overnight ~ from 40s from 4430-0464, then stayed around 60 bpm after 0530. -Cardiology consulted, appreciate recs. -Trop and CK neg -Will continue to monitor on Tele -Episode of SVT lasting 10 beats on 05/08 @ 2003. Paresthesias, r/o TIA/CVA -Pt reported numbness rt arm and leg new for past week, weakness 4/5 hospital orderly strength rt side; EOM was non congruent. Sx of numbness have resolved -CT head showed: no embolism -MRI (05/07) showed tiny acute L periventricular white matter ischemic infarct -Dr. Serrato, neuro consulted 05/07 -per neuro, stroke likely 2/2 to cocaine and unlikely a cause of his sx - Cont. w/ high intensity statin, - increased aspirin to 325 per neurology recs for secondary prevention -Hx stroke in December. Recent CTA neck showing short segment mild stenosis of the proximal R-ICA. Recent MRI showing R-MCA stroke per neurology notes Elevated CK likely 2/2 #2 vs polysubstance use, resolved. - Will give gentle fluids in the setting of CHF - Likely 2/2 decreased volume status vs drug use - Levels not elevated enough for concern for rhabdo at this time - Trending down, CK discontinued. Polysubstance abuse - Pt w/ pinpoint pupils on exam and endorsed hx of substance abuse - UDS +Cocaine T2DM - ACHS accuchecks and sliding scale - hold metformin in setting of JANA HTN - Will hold lisinopril in the setting of JANA - PRN IV medications available - Currently stable Asthma - Pt not on any home inhalers and vitals stable with no wheezing - Will cont. to monitor. PRN duonebs will be available. Bipolar, schizophrenia hx - continue home abilify CODE STATUS: FULL CODE <Cici Salmeron - Last Filed: 05/10/18 09:04> Attending Addendum - Attending Addendum Date/Time: 05/10/18 [id number] I personally evaluated the patient and discussed the management with Dr. Vanessa Salmeron I agree with the History, Examination, Assessment and Plan documented above with any addition or exceptions noted below- Patient still with hiccups in AM. Afebrile VSS. A/P: 1) Intractable hiccups- not responding to chlorpromazine or reglan. WIll try baclofen. 2) JANA- resolved. 3) CVA- stable. 4) Bradycardia- stable 5) D/C planning- will obtain rehab screen <Priscilla Andino - Last Filed: 05/10/18 21:45>
[2018-05-10 06:24] LABS: Band 3 % (5-11); Eosinophils 2 % (0-10); Hemoglobin 12.2 g/dL (14.0-18.0); Lymphocytes 20 % (21-51); MDiff Complete? YES; Mean Corpuscular HGB CONC 33.6 g/dL (32.0-36.0); Mean Corpuscular Hemoglobin 31.4 pg (27.0-31.0); Mean Corpuscular Volume 93.3 fL (78.0-98.0); Mean Platelet Volume 7.3 fL (7.4-10.4); Monocytes 20 % (0-10); Neutrophil 55 % (42-75); Platelet Count 176 thou/uL (130-400); RBC Distribution Width 12.4 % (11.5-14.5); Red Blood Cell (RBC) Count 3.88 mill/uL (4.70-6.10)
[2018-05-10] MEDS: Aripiprazole 10 MG TAB PO SCH (08:48)
[2018-05-10] MEDS: Sucralfate 1 GM TAB PO SCH ×3 (08:48→19:46)
[2018-05-10] MEDS: Vancomycin HCl 1.75 GM in Sodium Chloride 0.9% 500 ML IVPB SCH (08:48)
[2018-05-10] MEDS: Pantoprazole 40 MG GRANULES PACKET PO SCH (08:48)
[2018-05-10] MEDS: Enoxaparin Sodium 40 MG/0.4 ML SYRINGE SC SCH (08:48)
[2018-05-10] MEDS: Aspirin 325 MG TAB PO SCH (08:48)
[2018-05-10] MEDS: chlorproMAZINE HCl 25 MG TAB PO PRN (08:48)
[2018-05-10] MEDS ORDERED: Baclofen 10 MG TAB PO SCH ×2 (12:45→15:00)
--- NOTE | 2018-05-10 17:00 | PRG ---
DATE OF SERVICE: 05/10/2018 SUBJECTIVE: The patient seen and examined with no new complaint noted. OBJECTIVE: VITAL SIGNS: Afebrile with temperature 98, pulse 62, respiratory rate 16, O2 sat 96% with blood pres sure 160/63. HEENT: Unremarkable with moist oral mucosa. NECK: Supple, no conjunctival injection, no icterus. CARDIOVASCULAR: First and second heart sounds were heard. RESPIRATORY: Clear to auscultation. DIGESTIVE: Revealed a benign abdomen with positive bowel sounds. EXTREMITIES: No peripheral edema. SKIN: No new gross rash. LYMPHATICS: No peripheral lymphadenopathy. LABORATORY INVESTIGATIONS: Hemoglobin 12.2. Chemistry showed a creatinine of 1.54. IMPRESSION: Acute on chronic kidney disease. The patient improved back to baseline. PLAN: 1. Continue renal supportive measures. 2. We will likely avoid daily blood draws to avoid iatrogenic anemia.
--- NOTE | 2018-05-10 17:52 | PDOC.CTH ---
Cardiology Progress Note - Subjective Feels better overall. Hiccups have improved. No CP. No significnat dysrythmias. Echo still pending. - Objective Vital Signs Temp Pulse Pulse Pulse Resp BP BP 05/10/18 15:22 97.5 F L 55 L 16 05/10/18 11:22 98 F 62 16 05/10/18 09:10 88 50 L 139/73 116/63 05/10/18 07:51 98.1 F 60 16 05/10/18 07:39 98.1 F 60 16 BP Pulse Ox 05/10/18 15:22 134/65 97 05/10/18 11:22 115/64 96 05/10/18 09:10 05/10/18 07:51 97 05/10/18 07:39 131/83 97 Admit Weight 200 lb 12.8 oz Weight 201 lb 3.2 oz 05/09/18 05/10/18 05/11/18 06:59 06:59 06:59 Intake Total 1620 3913 Output Total 1655 2185 Balance -35 1728 - Physical Examination General/Neuro: alert & oriented x3, NAD Neck: no JVD present Lungs: CTA, unlabored respirations Heart: RRR Abdomen: NT/ND, soft Extremities: + femoral B - Labs Result Diagrams: 05/10/18 04:41 05/10/18 04:41 Troponin/CKMB CK-MB (CK-2) 2.1 ng/mL (0-6.6) 05/07/18 17:49 Troponin I Less than 0.010 ng/mL (< 0.028) 05/07/18 20:35 - Assessment/Plan 1. Bradycardia 2. Fever 3. Cardiomyopathy 4. Drug abuse 5. Non-compliance CV status stable. No indication for aggressive treatment from a CV standpoint. On Abx. Review echo (still pending)
[2018-05-10] MEDS: Baclofen 10 MG TAB PO SCH (19:46)
[2018-05-10] MEDS: Atorvastatin Calcium 40 MG TAB PO SCH (19:46)
[2018-05-11] MEDS: traMADol HCl 50 MG TAB PO PRN ×2 (00:01→05:26)
[2018-05-11] MEDS: Piperacillin/Tazobactam 3.375 GM in Sodium Chloride 0.9% 100 ML IVPB SCH ×2 (05:25→11:29)
--- NOTE | 2018-05-11 05:45 | PDOC.FM ---
- Subjective Subjective: 62 M here for symptomatic bradycardia and FUO. No fever x 48 hrs. Awaiting blood cultures. Pt states hiccups somewhat improved on baclofen. Still complains of rt frontal headache, says tramadol helped last night. Pending Echo results. Awaiting rehab placement. - Objective Vital Signs & Weight: Vital Signs (12 hours) Temp Pulse Resp BP BP Pulse Ox 05/11/18 03:40 98.1 F 52 L 20 130/82 96 05/10/18 20:00 98.1 F 56 L 18 98 05/10/18 19:55 98.1 F 56 L 18 134/81 98 Weight Admit Weight 91.081 kg Weight 93.032 kg I&O: 05/09/18 05/10/18 05/11/18 06:59 06:59 06:59 Intake Total 1620 3913 4955 Output Total 1655 2185 2080 Balance -35 1728 2875 Result Diagrams: 05/11/18 05:21 05/11/18 05:20 <Cici Salmeron - Last Filed: 05/11/18 08:29> - Objective Vital Signs & Weight: Vital Signs (12 hours) Temp Pulse Resp BP BP Pulse Ox 05/11/18 08:00 98.1 F 58 L 18 156/94 H 94 L 05/11/18 03:40 98.1 F 52 L 20 130/82 96 Weight Admit Weight 91.081 kg Weight 93.032 kg I&O: 05/10/18 05/11/18 05/12/18 06:59 06:59 06:59 Intake Total 3913 4955 Output Total 2185 2080 Balance 1728 2875 Result Diagrams: 05/11/18 05:21 05/11/18 05:20 <Priscilla Andino - Last Filed: 05/11/18 11:02> Phys Exam - Physical Examination Constitutional: NAD Respiratory: no wheezing, no rales, no rhonchi, clear to auscultation bilateral Cardiovascular: RRR, no significant murmur Gastrointestinal: soft TTP on right side, unchanged since admission Musculoskeletal: no edema Psychiatric: normal affect, A&O x 3 Skin: normal turgor, cap refill <2 seconds <Cici Salmeron - Last Filed: 05/11/18 08:29> Dx/Plan (1) Fever Code(s): R50.9 - FEVER, UNSPECIFIED Status: Acute (2) Arm paresthesia, right Code(s): R20.2 - PARESTHESIA OF SKIN Status: Acute (3) Right leg paresthesias Code(s): R20.2 - PARESTHESIA OF SKIN Status: Acute (4) Weakness of right hand Code(s): R29.898 - OTH SYMPTOMS AND SIGNS INVOLVING THE MUSCULOSKELETAL SYSTEM Status: Acute (5) Intractable nausea and vomiting Code(s): R11.2 - NAUSEA WITH VOMITING, UNSPECIFIED Status: Acute (6) JANA (acute kidney injury) Code(s): N17.9 - ACUTE KIDNEY FAILURE, UNSPECIFIED Status: Acute (7) T wave inversion in EKG Code(s): R94.31 - ABNORMAL ELECTROCARDIOGRAM [ECG] [EKG] Status: Acute (8) Polysubstance abuse Code(s): F19.10 - OTHER PSYCHOACTIVE SUBSTANCE ABUSE, UNCOMPLICATED Status: Chronic (9) T2DM (type 2 diabetes mellitus) Status: Chronic (10) HTN (hypertension) Code(s): I10 - ESSENTIAL (PRIMARY) HYPERTENSION Status: Chronic (11) Asthma Code(s): J45.909 - UNSPECIFIED ASTHMA, UNCOMPLICATED Status: Chronic - Plan Plan: Plan: Fever of Unknown Origin -Afebrile 48 hrs. Urine cx, no growth @ 24 hrs. Blood cx pending, CXR neg, UA neg. Empiric Vanc and zosyn started 06/08. (Vanc renally dosed). LA .9. 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 -Chlorpromazine was not reducing his hiccups and there was concern for development EPS, so switched to metoclopramide to help with hiccups and constipation - Lipase 85 (05/07). Level not elevated enough for diagnosis of pancreatitis and recent CT-AP from earlier this year with normal lipase not suggestive of chronic pancreatitis. - Cont. w/ sucralfate and will add Protonix as well if this is 2/2 an ulcer - FOBT positive -Refer outpt for colonoscopy upon discharge - Outside CT of abd normal, showed no acute pathology Acute on Chronic kidney disease, JANA on CKD Stage 3 - Consulted Dr. Gant (Nephro) (05/07) -Acute on Chronic kidney dx, likely pre-renal in context of GI loss nad poor PO intake - Complex Rt renal cyst seen on RUQ U/S, -Urology eval recommended outpt -Renal function improved to BUN/Cr 15/1.54 - FeNa shows 1.15%, indicative of intrinsic renal disease - CT stone protocol: showed no kidney stones; did reveal Left non inflamed inguinal hernia, and minimal sub pleural patchy densities - UA neg New onset T-wave inversions V5-V6 possibly due to demand vs substance abuse - Pt denies any current chest pain and initial cardiac enzymes negative - Reportedly from ER, pt w/ new t-wave inversions in leads V5-V6 from prior EKG. We were unable to locate his prior EKG, but per the ER records from his 2017 admission these did not appear on the ER physician's read. - Initial enzymes negative. Trop negx2. Acute ischemia causing this seems unlikely at this time. - Trops continue to be neg, CK trending down now 2.1. Discontinued - UDS: + for cocaine. will not administer any beta blockers. Bradycardic episode down to 30, concern for WAP vs junctional escape rhythm -Pulse hung in low 40s 05/07-05/08, with an episode down to 30 BPM around 1630. Pt was symptomatic with "tunnel vision" and felt SOB. Happened while ambulating. Pt told to tell nursing right away if he had another episode. Pt stable overnight ~ from 40s from [id number], then stayed around 60 bpm after 0530. -Trop and CK neg -Will continue to monitor on Tele -Episode of SVT lasting 10 beats on 05/08 @ 2003. -Cardiology consulted, appreciate recs. 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 Sx of numbness have resolved -CT head showed: no embolism -MRI (05/07) showed tiny acute L periventricular white matter ischemic infarct -Dr. Serrato, neuro consulted 05/07 -per neuro, stroke likely 2/2 to cocaine and unlikely a cause of his sx - Cont. w/ high intensity statin, - increased aspirin to 325 per neurology recs for secondary prevention -Hx stroke in December. Recent CTA neck showing short segment mild stenosis of the proximal R-ICA. Recent MRI showing R-MCA stroke per neurology notes Elevated CK likely 2/2 #2 vs polysubstance use, resolved. - Will give gentle fluids in the setting of CHF - Likely 2/2 decreased volume status vs drug use - Levels not elevated enough for concern for rhabdo at this time - Trending down, CK discontinued. Polysubstance abuse - Pt w/ pinpoint pupils on exam and endorsed hx of substance abuse - UDS +Cocaine T2DM - ACHS accuchecks and sliding scale - hold metformin in setting of JANA HTN - Will hold lisinopril in the setting of JANA - PRN IV medications available - Currently stable Asthma - Pt not on any home inhalers and vitals stable with no wheezing - Will cont. to monitor. PRN duonebs will be available. Bipolar, schizophrenia hx - continue home abilify For discharge: awaiting rehab placement. CODE STATUS: FULL CODE <Cici Salmeron - Last Filed: 05/11/18 08:29> Attending Addendum - Attending Addendum Date/Time: 05/11/18 [id number] I personally evaluated the patient and discussed the management with Dr. Vanessa Salmeron. I agree with the History, Examination, Assessment and Plan documented above with any addition or exceptions noted below- Patient states that hiccups better overnight. Was able to rest. Still having intermittent DAVIS that is improved with pain medication. Afebrile VSS A/P: 1) Bradycardia- stsble; appears asymptomatic. 2) Acute lacunar CVA- continue ASA; avoidance of illegal substances. 3) JANA- resolved, 4) CKD- Stage 2- stable. 5) Fever- afebrile x 48 hours; cultures negative to date. Plan to d/c abx. 6) Deconditioning- unable to qualify for rehab/SNF due to insurance. Plan to d/c home with family and outpatient PT. Will arrange for rolling walker. D/c hoem today. <Priscilla Andino - Last Filed: 05/11/18 11:02>
[2018-05-11 06:21] LABS: Band 7 % (5-11); Eosinophils 5 % (0-10); Hemoglobin 12.4 g/dL (14.0-18.0); Lymphocytes 27 % (21-51); MDiff Complete? YES; Mean Corpuscular HGB CONC 31.9 g/dL (32.0-36.0); Mean Corpuscular Hemoglobin 30.4 pg (27.0-31.0); Mean Corpuscular Volume 95.5 fL (78.0-98.0); Mean Platelet Volume 7.7 fL (7.4-10.4); Monocytes 29 % (0-10); Neutrophil 32 % (42-75); Platelet Count 182 thou/uL (130-400); RBC Distribution Width 12.5 % (11.5-14.5); Red Blood Cell (RBC) Count 4.09 mill/uL (4.70-6.10); White Blood Cell (WBC) Count 6.6 thou/uL (4.8-10.8)
[2018-05-11 06:24] LABS: Anion Gap 10 mmol/L (10-20); BUN (Urea Nitrogen) 11 mg/dL (8.4-25.7); Calc. Creatinine Clearance 75 mL/min (70-130); Calcium 8.7 mg/dL (7.8-10.44); Carbon Dioxide 27 mmol/L (22-29); Chloride 104 mmol/L (98-107); Estimated GFR-MDRD 64; Glucose 76 mg/dL (70-105); Potassium 4.5 mmol/L (3.5-5.1); Sodium 136 mmol/L (136-145)
[2018-05-11] MEDS: Baclofen 10 MG TAB PO SCH ×2 (09:19→15:11)
[2018-05-11] MEDS: Acetaminophen 500 MG TAB PO PRN (09:19)
[2018-05-11] MEDS: Sucralfate 1 GM TAB PO SCH ×2 (09:19→15:10)
[2018-05-11] MEDS: Aripiprazole 10 MG TAB PO SCH (09:19)
[2018-05-11] MEDS: Aspirin 325 MG TAB PO SCH (09:19)
[2018-05-11] MEDS: Pantoprazole 40 MG GRANULES PACKET PO SCH (09:20)
[2018-05-11] MEDS: Sodium Chloride 0.9% 1,000 ML IV SCH ×2 (09:20→15:13)
[2018-05-11] MEDS: Enoxaparin Sodium 40 MG/0.4 ML SYRINGE SC SCH (09:20)
[2018-05-11] MEDS: Vancomycin HCl 1.75 GM in Sodium Chloride 0.9% 500 ML IVPB SCH (09:24)
[2018-05-11] MEDS: Ondansetron ODT 4 MG TAB PO PRN (09:30)
--- NOTE | 2018-05-11 14:32 | PDOC.CTH ---
Cardiology Progress Note - Subjective 1. Bradycardia 2. Fever 3. Cardiomyopathy 4. Drug abuse 5. Non-compliance No new changes noted from CV standpoint. EF appears normal on recent echo Will follow peripherally. PLease re-consult if needed. - Objective Vital Signs Temp Pulse Resp BP BP Pulse Ox 05/11/18 11:28 97.2 F L 67 16 138/70 97 05/11/18 08:00 98.1 F 58 L 18 156/94 H 94 L 05/11/18 03:40 98.1 F 52 L 20 130/82 96 Admit Weight 200 lb 12.8 oz Weight 205 lb 1.6 oz 05/10/18 05/11/18 05/12/18 06:59 06:59 06:59 Intake Total 3913 4955 Output Total 2185 2080 Balance 1728 2875 - Labs Result Diagrams: 05/11/18 05:21 05/11/18 05:20 Troponin/CKMB CK-MB (CK-2) 2.1 ng/mL (0-6.6) 05/07/18 17:49 Troponin I Less than 0.010 ng/mL (< 0.028) 05/07/18 20:35
[2018-05-11 16:09] VITALS: BP 145/77; TEMP 98.2
--- NOTE | 2018-05-11 21:46 | PRG ---
DATE OF SERVICE: 05/11/2018 SUBJECTIVE: Patient is seen and examined and seems to be doing very well, noted with the following v ital signs. OBJECTIVE: VITAL SIGNS: Afebrile, temperature 98.2, pulse 53, respiratory rate of 18, O2 sat 95% with blood pre ssure 145/77. HEENT: Unremarkable. Moist oral mucosa. NECK: Supple, no conjunctival injection or icterus. CARDIOVASCULAR: First and second heart sounds were heard. RESPIRATORY: Clear to auscultation. DIGESTIVE: Revealed a benign abdomen with positive bowel sounds. EXTREMITIES: No peripheral edema. SKIN: No new gross rash. LYMPHATICS: No peripheral lymphadenopathy. IMPRESSION: Acute kidney injury which seems to have improved. PLAN: 1. Outpatient Nephrology followup. 2. Further management to be dependent on the clinical course. From the renal standpoint, patient is good for discharge.
--- NOTE | 2018-05-12 17:35 | EKG ---
Test Reason : Blood Pressure : / mmHG Vent. Rate : 049 BPM Atrial Rate : 049 BPM P-R Int : 164 ms QRS Dur : 104 ms QT Int : 458 ms P-R-T Axes : 054 -07 -35 degrees QTc Int : 413 ms Sinus bradycardia with Premature supraventricular complexes T wave abnormality, consider lateral ischemia Abnormal ECG When compared with ECG of 06-MAY-2018 20:19, (Unconfirmed) Premature supraventricular complexes are now Present T wave inversion now evident in Inferior leads T wave inversion less evident in Lateral leads QT has shortened Confirmed by ANGEL BILLINGSLEY (2) on 05/12/2018 5:34:36 PM Referred By: CHRISTIAN MCKENZIE Confirmed By:ANGEL BILLINGSLEY
--- NOTE | 2018-05-12 23:32 | DIS-2 ---
DATE OF ADMISSION: 05/06/2018 DATE OF DISCHARGE: 05/11/2018 RESIDENT: Cici Salmeron MD ADMITTING ATTENDING: Lew Whatley MD DISCHARGE ATTENDING: Priscilla Andino MD CONSULTATIONS: 1. Nephrology on 05/07, Dr. Gant. 2. Cardiology on 05/06, Dr. Taylor. PROCEDURES: 1. Chest x-ray on 05/06/2018. Impression: No acute thoracic findings. 2. CT of abdomen is no evidence of acute intra-abdominal or pelvic pathology. Moderate left and sma ll right fat-containing inguinal hernias. Moderate degenerative disk changes at L3 and L4. Moderate osteoarthritic changes of the hip. Bladder unremarkable. No stones. As before, there is a 2.5-cm rounded lucency in the middle of the third right kidney that is almost certainly a renal cyst. It singh s not changed in size or appearance intervals from the previous CT of the abdomen. There is a tiny c alcification in the appendix which was present prior. There is no sign of appendicitis, however. 3. Abdomen ultrasound on 05/06/2018. Impression: No evidence of gallstones. Right renal complex c yst or cystic lesion. Urological consultation recommended electively. 4. Brain CT on 05/07/2018. Impression: No acute brain findings. 5. Brain MRI on 05/07/2018. Impression: Extensive small vessel ischemic disease with a small area of infarction in the left periventricular white matter. 6. Chest x-ray on 05/09/2018. Impression: No evidence of acute cardiopulmonary disease. 7. Abdomen and pelvis CT on 05/09/2018. Impression: No urolithiasis or obstructive uropathy. Ther e is a stable hypodensity of the right kidney, incompletely assessed by noncontrast CT imaging. Mini mal subpleural patchy densities are seen at the lung bases. Scattered colonic diverticula are presen t. Stable linear calcification is seen within the appendix. Vascular calcifications are present. T here is noninflamed fat containing left inguinal hernia. 8. Echocardiogram on 05/11/2018. SUMMARY: 1. The LVEF is estimated at 50-55%, improved over previous study. 2. E/A flow reversal noted. 3. Suggested of diastolic dysfunction. Mild concentric left ventricular hypertrophy. The left atri um is mildly dilated. Redundant mitral valve cord present noted on previous study. Mild aortic regu rgitation noted. Trace tricuspid regurgitation. Normal pulmonary artery pressure. PRIMARY DIAGNOSES: 1. Fever of unknown origin. 2. Acute kidney injury on chronic kidney disease, stage 3. 3. Bradycardic episodes down to 30 beats per minute. Concern for WAP versus junctional escape rhyth m. 4. Transient ischemic attack versus cerebrovascular accident, tiny acute left periventricular white matter ischemic infarct. SECONDARY DIAGNOSES: 1. Intractable nausea and vomiting. 2. New onset T-wave inversions. 3. Elevated creatine kinase. 4. Polysubstance abuse. 5. Type 2 diabetes mellitus. 6. Hypertension. 7. Asthma. 8. Bipolar. 9. Schizophrenia. HISTORY OF PRESENT ILLNESS AND HOSPITAL COURSE: The patient is a 62-year-old male presenting with se veral days of abdominal pain, nausea, vomiting, accompanied by step. Patient was seen at [facility] and was given Reglan and Zofran, which did not relieve his symptoms. The patient states he has not been able to keep any fluids or food down for days. He has a past medical history significan t for stroke in December with slurred speech deficits, diabetes mellitus, hypertension, and asthma. He has also been having headaches and states it is painful to look down towards his right. Headache is severe on his right eye lutheran area. He denies vision changes. He reports feeling dizzy and wobbly when walking. He also endorsed stomach pain that is sharp in character and in the middle of his abdo men. He describes the pain as constant. The patient endorses using methamphetamine and cocaine, but it was not clear with the last use. The patient possibly had a fall a few days ago, but the patient is not sure if he hit his head. Patient denies any chest pain, shortness of breath or diarrhea. He has been voiding and stooling normally. In the ED, his labs showed that he had JANA and some EKG annette nges. The second day of his stay, he complained of numbness in his right arm and leg that was new on set for the past week and had some weakness on the right side. His extraocular movements were noncon gruent, we got a CT head, which showed no embolism. An MRI was taken on 05/07 that showed a tiny acu te left periventricular white matter ischemic infarct. Per Neuro, the stroke was likely secondary to cocaine and unlikely a cause of his symptoms. His symptoms resolved within the next day and he refe rs intractable nausea and vomiting that was likely secondary to ATN versus AIN versus glomerulonephri tis versus other. He had persistent nausea and vomiting with minimal p.o. intake with Zofran helped somewhat his vomiting. We also tried for his intractable nausea and vomiting, likely secondary to AT N versus AIN versus glomerulonephritis versus other. Patient did have persistent nausea and vomiting with minimal p.o. intake. He was able to have some Zofran and Reglan in the ER which helped. He wa s given some chlorpromazine to try to reduce his hiccups, but that was switched because it was not he lping to metoclopramide. That also did not help very much, and he was discharged on baclofen. He st ates that the baclofen did help improve some of his hiccups. For his acute on chronic kidney injury, JANA on CKD, stage 3. Dr. Gant Nephro was consulted. He showed that he had acute on chronic kidney disease, likely ____ in the context of his GI loss and poor p.o. intake. He has recommended Urology eval outpatient for his right renal cyst seen on upper quadrant ultrasound. We did get a CT stone protocol because of his history of kidney stones and his flank pain, the results showed no kidney stones. It did reveal a left noninflamed inguinal hernia an d a small right inguinal hernia. His UA was negative at that time. He did have new onset T-wave inversions in V5 and V6, possibly due to demand versus substance abuse. We are unable to locate his prior EKG, but per the ER records from his 12/2017 admission, these did not appear on the ER physician's read. His troponin negative and his CK trended down. His UDS was a lso positive for cocaine, so we did not administer any beta blockers during his stay here. For his bradycardia, pulse hung in the low 40s and episode down to 30 beats per minute. The patient was symptomatic at this time and felt short of breath that happened while he was ambulating. Cradio was consulted and he got an echo. The results are above in the procedure section. For his elevated CK, we gave gentle fluids in the setting of CHF. His levels were not high enough to be concern for ____. The levels of CK trended down. For his polysubstance abuse, the patient had pinpoint pupils on exam and endorsed history of recent s ubstance abuse. His UDS was positive for cocaine. For his type 2 diabetes mellitus, he got Accu-Cheks and sliding scale. We held his metformin in the setting of JANA. For his hypertension, we held his lisinopril in the setting of JANA. He had p.r.n. IV medications and was sent home on home medications. For his asthma, he had p.r.n. DuoNeb available. For his bipolar and schizophrenia history, continue his home Abilify. DISPOSITION: Stable. DISCHARGE INSTRUCTIONS: 1. Location: Home with his sister. 2. Diet: Consistent carbohydrates. 3. Activity: As tolerated. 4. Followup: Follow up with PCP, Ruth Zurita in 5-7 days.
== END 2018-05-11 20:33 | disposition home or self-care (01) | DRG 917 ==
LOC: ERS 20:03 → 2NO 22:33
PROVIDERS: ADMIT Family Medicine; ATTEND Family Medicine
DX: T40.5X1A Poisoning by cocaine, accidental (unintentional), initial encounter (principal); I63.9 Cerebral infarction, unspecified; N17.0 Acute kidney failure with tubular necrosis; G45.9 Transient cerebral ischemic attack, unspecified; I42.9 Cardiomyopathy, unspecified; R50.9 Fever, unspecified; N18.3 Chronic kidney disease, stage 3 (moderate); I12.9 Hypertensive chronic kidney disease with stage 1 through stage 4 chronic kidney disease, or unspecified chronic kidney disease; E11.22 Type 2 diabetes mellitus with diabetic chronic kidney disease; F31.9 Bipolar disorder, unspecified; F20.9 Schizophrenia, unspecified; F19.10 Other psychoactive substance abuse, uncomplicated; R00.1 Bradycardia, unspecified; Y92.89 Other specified places as the place of occurrence of the external cause; Z79.84 Long term (current) use of oral hypoglycemic drugs; R06.6 Hiccough; J45.909 Unspecified asthma, uncomplicated; Z91.19 Patient's noncompliance with other medical treatment and regimen; R20.2 Paresthesia of skin; R94.31 Abnormal electrocardiogram [ECG] [EKG]; E78.5 Hyperlipidemia, unspecified; Z88.0 Allergy status to penicillin; Z23 Encounter for immunization
CPT/HCPCS: 36415; 36416; 70450; 70551; 71046; 74176; 76705; 80048; 80306; 81003; 81015; 82274; 82553; 82570; 83605; 84300; 84484; 85025; 87040; 87086; 90471; 90732; 93005; 93010; 93306; 94760; 96374; A4216; G0009; G8978-GP-CJ; G8978-GP-CL; G8979-GP-CI; G8987-GO-CK; G8988-GO-CI; G9162-GN-CL; G9163-GN-CJ; J1650; J2543; J3230; J3370; J7050; Q0161; Q0162

== ENCOUNTER 2021-06-02 15:52 | Inpatient (IN) | payer OTHER ==
[2021-06-02 16:30] LABS: #Basophils 0.1 thou/uL (0.0-0.2); #Lymphocytes 1.4 thou/uL (1.20-3.40); #Monocytes 0.5 thou/uL (0.11-0.59); #Neutrophils 3.4 thou/uL (1.40-6.50); %Eosinophils 0.1 % (0.0-10.0); %Lymphocytes 26.8 % (21.0-51.0); %Monocytes 9.1 % (0.0-10.0); Hemoglobin 15.2 g/dL (14.0-18.0); Mean Corpuscular HGB CONC 34.4 g/dL (32.0-36.0); Mean Corpuscular Hemoglobin 31.6 pg (27.0-31.0); Mean Corpuscular Volume 91.9 fL (78.0-98.0); Mean Platelet Volume 7.9 fL (7.4-10.4); Platelet Count 165 thou/uL (130-400); RBC Distribution Width 12.1 % (11.5-14.5); Red Blood Cell (RBC) Count 4.82 mill/uL (4.70-6.10); White Blood Cell (WBC) Count 5.4 thou/uL (4.8-10.8)
[2021-06-02 16:51] LABS: ALT (SGPT) 22 U/L (8-55); AST (SGOT) 36 U/L (5-34); Albumin 3.8 g/dL (3.4-4.8); Alkaline Phosphatase 67 U/L (40-110); Anion Gap 16 mmol/L (10-20); BUN (Urea Nitrogen) 27 mg/dL (8.4-25.7); Bilirubin, Total 0.6 mg/dL (0.2-1.2); Calc. Creatinine Clearance 0 mL/min (70-130); Calcium 8.9 mg/dL (7.8-10.44); Carbon Dioxide 19 mmol/L (23-31); Chloride 101 mmol/L (98-107); Glucose 88 mg/dL (80-115); Potassium 4.2 mmol/L (3.5-5.1); Protein, Total 7.8 g/dL (5.8-8.1); Sodium 132 mmol/L (136-145)
[2021-06-02] MEDS ORDERED: Acetaminophen 500 MG TAB ONE (17:02)
[2021-06-02 17:13] LABS: CKMB 1.8 ng/mL (0-6.6)
[2021-06-02] MEDS ORDERED: Diltiazem 125 MG in Sodium Chloride 0.9% 100 ML IVPB SCH ×2 (17:30→18:30)
[2021-06-02] MEDS ORDERED: Loratadine 10 MG TAB PO PRN (18:17)
[2021-06-02] MEDS ORDERED: Loperamide HCl 2 MG CAP PO PRN (18:17)
[2021-06-02] MEDS ORDERED: Dextrose 50% Abboject 50 ML SYRINGE SLOW IVP PRN (18:17)
[2021-06-02] MEDS ORDERED: Zolpidem Tartrate 5 MG TAB PO PRN (18:17)
[2021-06-02] MEDS ORDERED: Calcium Carbonate 500 MG ChewTAB PO PRN (18:17)
[2021-06-02] MEDS ORDERED: Benzonatate 100 MG CAP PO PRN (18:17)
[2021-06-02] MEDS ORDERED: Cepastat Lozenges 1 LOZ PO PRN (18:17)
[2021-06-02] MEDS ORDERED: Sodium Chloride 0.65% Nasal 44 ML BOT EA NARE PRN (18:17)
[2021-06-02] MEDS ORDERED: Dextrose 5% in Water 1,000 ML IV PRN (18:17)
[2021-06-02] MEDS ORDERED: HumaLOG 300 UNITS/3 ML VIAL SC PRN ×2 (18:17)
[2021-06-02] MEDS ORDERED: HYDROcodone/Acetaminophen 5/325 mg Tablet PO PRN (18:17)
[2021-06-02] MEDS ORDERED: Ondansetron PF 4 MG/2 ML Vial IVP PRN (18:17)
[2021-06-02] MEDS ORDERED: hydrALAZINE 20 MG/ML VIAL SLOW IVP PRN (18:17)
[2021-06-02] MEDS ORDERED: Bisacodyl 10 MG SUPP PR PRN (18:17)
[2021-06-02] MEDS ORDERED: Guaifenesin DM 100-10/5 ML UDCUP PO PRN (18:17)
[2021-06-02] MEDS ORDERED: Senokot S 8.6-50 MG TAB PO PRN (18:17)
[2021-06-02] MEDS ORDERED: Hydrocerin (Eucerin) Cream 120 gm Jar TOP PRN (18:17)
[2021-06-02] MEDS ORDERED: Ondansetron ODT 4 MG TAB PO PRN (18:17)
[2021-06-02] MEDS ORDERED: Aspirin 325 MG TAB ONE (18:23)
[2021-06-02 18:46] LABS: SARS-CoV-2 NAA Rapid Test DETECTED (NotDetected)
[2021-06-02 19:27] LABS: Troponin I 0.034 ng/mL (< 0.028)
[2021-06-02] MEDS ORDERED: Famotidine 20 MG TAB PO SCH (21:00)
[2021-06-02] MEDS ORDERED: Enoxaparin Sodium 60 MG/0.6 ML SYRINGE SC SCH (21:00)
[2021-06-02 23:04] VITALS: BMI 25.6
[2021-06-02] MEDS: Acetaminophen 325 MG TAB PO PRN (23:21)
[2021-06-02] MEDS: Atorvastatin Calcium 40 MG TAB PO SCH (23:22)
[2021-06-02 23:23] LABS: Troponin I 0.038 ng/mL (< 0.028)
[2021-06-03 00:45] LABS: Bacteria/HPF None Seen HPF (None Seen); Bilirubin Negative (Negative); Blood, Urine 1+ (Negative); Clarity Clear (Clear); Glucose, Urine (Dipstick) Normal (Negative); Ketone, Urine Trace mg/dL (Negative); Leukocyte Negative Leu/uL (Negative); Nitrite Negative (Negative); Protein, Urine (Dipstick) 70 mg/dL (Neg-Trace); RBC/HPF 0-3 HPF (0-3); Specific Gravity, Urine 1.027 (1.002-1.036); Squamous Epithelial 0-3 HPF (0-3); WBC/HPF 0-3 HPF (0-3); pH, Urine 5.5 (5.0-9.0)
[2021-06-03 00:53] LABS: Amphetamine Not Detected (NotDetected); Barbiturates Screen Not Detected (NotDetected); Benzodiazepine Screen Not Detected (NotDetected); Cocaine Metabolite Screen Detected (NotDetected); Methadone Not Detected (NotDetected); Methamphetamine Not Detected (NotDetected); Opiate Screen Not Detected (NotDetected); Oxycodone Screen Not Detected (NotDetected); Phencyclidine (PCP) Not Detected (NotDetected); THC/Cannabinoid Screen Not Detected (NotDetected); Tricyclic Screen Not Detected (NotDetected)
[2021-06-03 03:46] LABS: #Basophils 0.1 thou/uL (0.0-0.2); #Lymphocytes 1.6 thou/uL (1.20-3.40); #Monocytes 0.3 thou/uL (0.11-0.59); #Neutrophils 1.9 thou/uL (1.40-6.50); %Basophils 1.8 % (0.0-1.0); %Eosinophils 0.7 % (0.0-10.0); %Lymphocytes 40.2 % (21.0-51.0); %Monocytes 8.7 % (0.0-10.0); %Neutrophils 48.6 % (42.0-75.0); Mean Corpuscular HGB CONC 33.2 g/dL (32.0-36.0); Mean Corpuscular Hemoglobin 30.5 pg (27.0-31.0); Mean Corpuscular Volume 91.8 fL (78.0-98.0); Platelet Count 155 thou/uL (130-400); RBC Distribution Width 12.2 % (11.5-14.5); Red Blood Cell (RBC) Count 4.61 mill/uL (4.70-6.10); White Blood Cell (WBC) Count 3.9 thou/uL (4.8-10.8)
[2021-06-03 03:59] LABS: Hemoglobin A1c 6.1 % (4.0-6.0)
[2021-06-03 04:20] LABS: ALT (SGPT) 20 U/L (8-55); AST (SGOT) 32 U/L (5-34); Albumin 3.5 g/dL (3.4-4.8); Alkaline Phosphatase 59 U/L (40-110); Anion Gap 12 mmol/L (10-20); BUN (Urea Nitrogen) 26 mg/dL (8.4-25.7); Bilirubin, Total 0.6 mg/dL (0.2-1.2); CRP (Inflammatory) 3.37 mg/dL (= or < 0.5); Calc. Creatinine Clearance 36 mL/min (70-130); Calcium 8.7 mg/dL (7.8-10.44); Carbon Dioxide 21 mmol/L (23-31); Chloride 105 mmol/L (98-107); Cholesterol 137 mg/dl (< 200 Desired); Globulin 3.6 g/dL (2.4-3.5); Glucose 81 mg/dL (80-115); HDL Cholesterol 23 mg/dL (>60 Neg Risk); LDL Cholesterol, Calculated 90 mg/dL; Phosphorus 3.3 mg/dL (2.3-4.7); Potassium 4.1 mmol/L (3.5-5.1); Protein, Total 7.1 g/dL (5.8-8.1); Sodium 134 mmol/L (136-145); Triglycerides 120 mg/dL (Less than 150)
[2021-06-03 04:26] LABS: Ferritin 931.29 ng/mL (22-322); Thyroid Stimulating Hormone 0.8145 uIU/mL (0.35-4.94)
[2021-06-03] MEDS: Acetaminophen 325 MG TAB PO PRN ×2 (06:25→21:41)
[2021-06-03] MEDS: Famotidine 20 MG TAB PO SCH (07:52)
[2021-06-03] MEDS: Enoxaparin Sodium 80 MG/0.8 ML SYRINGE SC SCH (07:52)
[2021-06-03] MEDS: Aspirin Chewable 81 MG TAB PO SCH (07:52)
[2021-06-03] MEDS ORDERED: Aripiprazole 10 MG TAB PO SCH (09:00)
[2021-06-03] MEDS ORDERED: Sodium Chloride 0.9% 1,000 ML IV SCH (10:15)
[2021-06-03] MEDS: Atorvastatin Calcium 40 MG TAB PO SCH (21:36)
[2021-06-04 08:20] LABS: #Basophils 0.1 thou/uL (0.0-0.2); #Lymphocytes 1.5 thou/uL (1.20-3.40); #Monocytes 0.5 thou/uL (0.11-0.59); #Neutrophils 2.6 thou/uL (1.40-6.50); %Basophils 1.1 % (0.0-1.0); %Eosinophils 0.7 % (0.0-10.0); %Lymphocytes 33.1 % (21.0-51.0); %Monocytes 9.9 % (0.0-10.0); %Neutrophils 55.3 % (42.0-75.0); Hemoglobin 13.3 g/dL (14.0-18.0); Mean Corpuscular HGB CONC 33.6 g/dL (32.0-36.0); Mean Corpuscular Volume 92.2 fL (78.0-98.0); Mean Platelet Volume 8.1 fL (7.4-10.4); Platelet Count 172 thou/uL (130-400); RBC Distribution Width 12.1 % (11.5-14.5); Red Blood Cell (RBC) Count 4.28 mill/uL (4.70-6.10); White Blood Cell (WBC) Count 4.7 thou/uL (4.8-10.8)
[2021-06-04 08:34] LABS: Anion Gap 10 mmol/L (10-20); BUN (Urea Nitrogen) 16 mg/dL (8.4-25.7); Calc. Creatinine Clearance 47 mL/min (70-130); Calcium 8.5 mg/dL (7.8-10.44); Carbon Dioxide 23 mmol/L (23-31); Chloride 105 mmol/L (98-107); Glucose 80 mg/dL (80-115); Potassium 3.8 mmol/L (3.5-5.1); Sodium 134 mmol/L (136-145)
[2021-06-04] MEDS: Enoxaparin Sodium 80 MG/0.8 ML SYRINGE SC SCH (10:46)
[2021-06-04] MEDS: Vitamin E 400 UNITS CAP PO SCH (10:46)
[2021-06-04] MEDS: Cholecalciferol 1,000 UNITS (25 MCG) TAB PO SCH (10:46)
[2021-06-04] MEDS: Ascorbic Acid 500 mg Chewable Tablet PO SCH (10:46)
[2021-06-04] MEDS: Aspirin Chewable 81 MG TAB PO SCH (10:46)
[2021-06-04] MEDS: Famotidine 20 MG TAB PO SCH (10:46)
[2021-06-04] MEDS: Zinc Sulfate 220 MG CAP PO SCH (10:47)
[2021-06-04] MEDS: Midodrine HCl 5 MG TAB PO SCH ×2 (14:41→21:01)
[2021-06-04 16:48] LABS: Bacteria/HPF None Seen HPF (None Seen); Bilirubin Negative (Negative); Blood, Urine 1+ (Negative); Clarity Clear (Clear); Glucose, Urine (Dipstick) 100 mg/dL (Negative); Ketone, Urine Negative (Negative); Leukocyte Negative Leu/uL (Negative); Nitrite Negative (Negative); Protein, Urine (Dipstick) 70 mg/dL (Neg-Trace); RBC/HPF 0-3 HPF (0-3); Specific Gravity, Urine 1.025 (1.002-1.036); Squamous Epithelial 0-3 HPF (0-3); WBC/HPF 0-3 HPF (0-3); pH, Urine 5.5 (5.0-9.0)
[2021-06-04] MEDS: Atorvastatin Calcium 40 MG TAB PO SCH (21:00)
[2021-06-05 05:33] LABS: #Eosinphils 0.1 thou/uL (0.0-0.7); #Lymphocytes 1.8 thou/uL (1.20-3.40); #Monocytes 0.4 thou/uL (0.11-0.59); #Neutrophils 2.9 thou/uL (1.40-6.50); %Basophils 0.4 % (0.0-1.0); %Eosinophils 1.7 % (0.0-10.0); %Lymphocytes 34.9 % (21.0-51.0); %Monocytes 7.2 % (0.0-10.0); %Neutrophils 55.8 % (42.0-75.0); Hemoglobin 13.4 g/dL (14.0-18.0); Mean Corpuscular HGB CONC 31.8 g/dL (32.0-36.0); Mean Corpuscular Hemoglobin 29.6 pg (27.0-31.0); Mean Corpuscular Volume 93.1 fL (78.0-98.0); Mean Platelet Volume 8.4 fL (7.4-10.4); Platelet Count 196 thou/uL (130-400); RBC Distribution Width 12.1 % (11.5-14.5); Red Blood Cell (RBC) Count 4.54 mill/uL (4.70-6.10); White Blood Cell (WBC) Count 5.2 thou/uL (4.8-10.8)
[2021-06-05 05:54] LABS: Anion Gap 11 mmol/L (10-20); BUN (Urea Nitrogen) 14 mg/dL (8.4-25.7); Calc. Creatinine Clearance 49 mL/min (70-130); Calcium 8.7 mg/dL (7.8-10.44); Carbon Dioxide 24 mmol/L (23-31); Chloride 104 mmol/L (98-107); Glucose 75 mg/dL (80-115); Potassium 3.9 mmol/L (3.5-5.1); Sodium 135 mmol/L (136-145)
[2021-06-05] MEDS ORDERED: Digoxin 0.125 MG TAB PO SCH (09:00)
[2021-06-05] MEDS: Cholecalciferol 1,000 UNITS (25 MCG) TAB PO SCH (10:43)
[2021-06-05] MEDS: Vitamin E 400 UNITS CAP PO SCH (10:43)
[2021-06-05] MEDS: Ascorbic Acid 500 mg Chewable Tablet PO SCH (10:43)
[2021-06-05] MEDS: Aspirin Chewable 81 MG TAB PO SCH (10:43)
[2021-06-05] MEDS: Famotidine 20 MG TAB PO SCH (10:43)
[2021-06-05] MEDS: Zinc Sulfate 220 MG CAP PO SCH (10:44)
[2021-06-05] MEDS: Acetaminophen 325 MG TAB PO PRN (10:44)
[2021-06-05] MEDS: Enoxaparin Sodium 80 MG/0.8 ML SYRINGE SC SCH (10:45)
[2021-06-05] MEDS: Midodrine HCl 5 MG TAB PO SCH (10:45)
[2021-06-05 16:16] VITALS: BP 99/68; TEMP 98.4
[2021-06-05] MEDS ORDERED: Apixaban 2.5 MG TAB PO SCH (21:00)
[2021-06-05] MEDS ORDERED: Apixaban 5 MG TAB PO SCH (21:00)
== END 2021-06-05 16:08 | disposition home or self-care (01) | DRG 280 ==
LOC: ERS 15:52 → IMCU/EMU 17:58 → 2SW 06-04 00:46
PROVIDERS: ADMIT Internal Medicine; ATTEND Internal Medicine
PROC: 8E0ZXY6 Isolation (ICD-10-PCS; principal; 2021-06-02)
DX: I48.20 Chronic atrial fibrillation, unspecified (principal); U07.1 COVID-19; I21.A1 Myocardial infarction type 2; F31.61 Bipolar disorder, current episode mixed, mild; N17.9 Acute kidney failure, unspecified; E78.5 Hyperlipidemia, unspecified; I95.9 Hypotension, unspecified; J45.20 Mild intermittent asthma, uncomplicated; F20.9 Schizophrenia, unspecified; N18.30 Chronic kidney disease, stage 3 unspecified; E11.22 Type 2 diabetes mellitus with diabetic chronic kidney disease; F14.10 Cocaine abuse, uncomplicated; F15.10 Other stimulant abuse, uncomplicated; I12.9 Hypertensive chronic kidney disease with stage 1 through stage 4 chronic kidney disease, or unspecified chronic kidney disease; Z79.899 Other long term (current) drug therapy; Z88.0 Allergy status to penicillin; Z79.84 Long term (current) use of oral hypoglycemic drugs; Z79.82 Long term (current) use of aspirin; Z86.73 Personal history of transient ischemic attack (TIA), and cerebral infarction without residual deficits
CPT/HCPCS: 0240U; 36415; 36416; 71045; 80048; 80053; 80061; 80306; 81001; 81003; 81015; 82533; 82553; 82728; 83036; 83735; 84100; 84145; 84443; 84484; 85025; 85379; 86140; 87040; 93005; 96365; 96366; 96376; J1650; J2405; J3490

== ENCOUNTER 2022-11-24 12:59 | Inpatient (IN) | payer MEDICARE, MEDICAID ==
[2022-11-24] MEDS ORDERED: Rocuronium Bromide 10 MG/ML (10ML VIAL) ONE ×2 (14:14→14:33)
[2022-11-24 14:35] LABS: Hemoglobin 17.7 g/dL (14.0-18.0); Mean Corpuscular HGB CONC 31.7 g/dL (32.0-36.0); Mean Corpuscular Hemoglobin 29.9 pg (27.0-31.0); Mean Corpuscular Volume 94.2 fl (78.0-98.0); Mean Platelet Volume 8.8 fL (7.4-10.4); Platelet Count 226 10x3/uL (130-400); RBC Distribution Width 12.9 % (11.5-14.5); Red Blood Cell (RBC) Count 5.92 mill/uL (4.70-6.10); White Blood Cell (WBC) Count 22.9 10x3/uL (4.8-10.8)
[2022-11-24] MEDS ORDERED: Fentanyl 100 MCG/2 ML VIAL ONE (14:35)
[2022-11-24] MEDS ORDERED: Midazolam HCl 2 mg/2 ml Vial ONE (14:38)
[2022-11-24] MEDS ORDERED: Propofol 1,000 MG/100 ML VIAL IV ONE ×2 (14:40→22:22)
[2022-11-24 14:52] LABS: PTT 25.1 sec (22.9-36.1)
[2022-11-24 14:53] LABS: Band 4 % (5-11); Lymphocytes 8 % (21-51); MDiff Complete? YES; Monocytes 4 % (0-10); Neutrophil 84 % (42-75); Platelet Morphology Comment Appears Adequate; RBC Morphology Normal
[2022-11-24 14:54] LABS: Acetaminophen Less than 10.0 mcg/mL (10.0-30.0); Alcohol Less than 10 mg/dL (Less than 10); Salicylate Less than 8.0 mg/dL (15.0-30.0)
[2022-11-24 14:56] LABS: ALT (SGPT) 79 U/L (8-55); AST (SGOT) 195 U/L (5-34); Albumin 4.2 g/dL (3.4-4.8); Alkaline Phosphatase 93 U/L (40-110); Anion Gap 22 mmol/L (10-20); BUN (Urea Nitrogen) 38 mg/dL (8.4-25.7); Bilirubin, Total 1.1 mg/dL (0.2-1.2); Calc. Creatinine Clearance 0 mL/min (70-130); Calcium 9.8 mg/dL (7.8-10.44); Carbon Dioxide 17 mmol/L (23-31); Chloride 102 mmol/L (98-107); Estimated GFR 34; Globulin 4.5 g/dL (2.4-3.5); Glucose 136 mg/dL (80-115); Lipase 15 U/L (8-78); Potassium 4.8 mmol/L (3.5-5.1); Protein, Total 8.7 g/dL (5.8-8.1); Sodium 136 mmol/L (136-145)
[2022-11-24 15:11] LABS: Actual Bicarbonate (HCO3a) 20.2 mEq/L (22-28); Analyzer IN Cardio ER; Base Excess (BEa) -3.1 mEq/L (-2.0 to +3.0); CO2 Tension 32.5 mmHg (35.0-45.0); Calcium, Ionized (arterial) 1.14 mmol/L (1.12-1.30); Carboxyhemoglobin (COHb) 0.3 gm% (0.0-3.0); Hemoglobin (Hb) 18.1 g/dL (14.0-18.0); O2 Tension (PaO2), arterial 317.5 mmHg (> 80.0); Potassium - ABG Lab 4.26 mmol/L (3.70-5.30); pH, Arterial 7.41 (7.35-7.45)
[2022-11-24 15:13] LABS: ALV-art Gradient 69.675 mmHg (0-20); Puncture Site RRA
[2022-11-24 15:14] LABS: CKMB 194.7 ng/mL (0-6.6)
[2022-11-24] MEDS ORDERED: Diltiazem 125 MG/25 ML ONE (15:22)
[2022-11-24] MEDS ORDERED: Magnesium 2 GM/50 ML BAG (IN WATER) ONE (15:22)
[2022-11-24] MEDS ORDERED: Digoxin 0.5 MG/2 ML AMP ONE (15:22)
[2022-11-24] MEDS ORDERED: Cefepime 2 GM VIAL ONE (15:22)
[2022-11-24] MEDS ORDERED: Dextrose 5% in Water 1,000 ML IV PRN (15:57)
[2022-11-24] MEDS ORDERED: Acetaminophen 650 MG Suppository PR PRN (15:57)
[2022-11-24] MEDS ORDERED: HumaLOG 300 UNITS/3 ML VIAL SC PRN (15:57)
[2022-11-24] MEDS ORDERED: Dextrose 50% Abboject 50 ML SYRINGE SLOW IVP PRN (15:57)
[2022-11-24] MEDS ORDERED: Clindamycin/D5W 900 MG in Premix Bag 1 BAG IVPB SCH (16:00)
[2022-11-24] MEDS ORDERED: Bacitracin Zinc Ointment 30 gm TUBE ONE (16:04)
[2022-11-24] MEDS ORDERED: Thrombin 5000 UNITS/5 ML VIAL ONE (16:04)
[2022-11-24] MEDS ORDERED: Metoclopramide HCl 10 MG/2 ML VIAL IVP PRN (16:06)
[2022-11-24 16:16] LABS: Bacteria/HPF None Seen HPF (None Seen); Bilirubin Negative (Negative); Blood, Urine 3+ (Negative); Clarity Turbid (Clear); Glucose, Urine (Dipstick) Normal (Negative); Ketone, Urine 10 mg/dL (Negative); Leukocyte Negative Leu/uL (Negative); Nitrite Negative (Negative); Protein, Urine (Dipstick) 300 mg/dL (Neg-Trace); RBC/HPF 0-3 HPF (0-3); Specific Gravity, Urine 1.033 (1.002-1.036); Squamous Epithelial 0-3 HPF (0-3); Urobilinogen Normal mg/dL (Less than 2); WBC/HPF 0-3 HPF (0-3); pH, Urine 5.5 (5.0-9.0)
[2022-11-24] MEDS ORDERED: Lidocaine 0.5%/Epinephrine 1:200,000 50 ml Vial ONE (16:17)
[2022-11-24 16:23] LABS: Amphetamine Not Detected (NotDetected); Barbiturates Screen Not Detected (NotDetected); Benzodiazepine Screen Not Detected (NotDetected); Cocaine Metabolite Screen Detected (NotDetected); Methadone Not Detected (NotDetected); Methamphetamine Not Detected (NotDetected); Opiate Screen Not Detected (NotDetected); Oxycodone Screen Not Detected (NotDetected); Phencyclidine (PCP) Not Detected (NotDetected); THC/Cannabinoid Screen Not Detected (NotDetected); Tricyclic Screen Not Detected (NotDetected)
[2022-11-24] MEDS ORDERED: Fentanyl 250 MCG/5 ML VIAL ONE (16:28)
[2022-11-24] MEDS ORDERED: PHENYLEPHRINE-NS 100 MCG/ML 10 ML SYRINGE ONE (16:52)
[2022-11-24 17:11] LABS: CK (CPK) 17125 U/L (30-200)
[2022-11-24 17:40] LABS: Free T4 (Free Thyroxine) 1.01 ng/dL (0.70-1.48)
[2022-11-24 19:52] LABS: Actual Bicarbonate (HCO3a) 19.8 mEq/L (22-28); Base Excess (BEa) -4.5 mEq/L (-2.0 to +3.0); CO2 Tension 34.7 mmHg (35.0-45.0); Calcium, Ionized (arterial) 1.07 mmol/L (1.12-1.30); Carboxyhemoglobin (COHb) 0.2 gm% (0.0-3.0); Hemoglobin (Hb) 16.8 g/dL (14.0-18.0); O2 Tension (PaO2), arterial 150.5 mmHg (> 80.0); Potassium - ABG Lab 4.64 mmol/L (3.70-5.30); pH, Arterial 7.37 (7.35-7.45)
[2022-11-24 19:55] LABS: ALV-art Gradient 162.625 mmHg (0-20); Puncture Site FEM
[2022-11-24] MEDS ORDERED: Vancomycin 1.5 GRAM/300 ML BAG 1.5 GM in Premix Bag 1 BAG IVPB SCH (21:00)
[2022-11-24 22:01] LABS: Magnesium 2.7 mg/dL (1.6-2.6); Phosphorus 4.6 mg/dL (2.3-4.7)
[2022-11-24 22:06] LABS: Troponin I 0.144 ng/mL (< 0.028)
[2022-11-24] MEDS: Sodium Chloride 0.9% 1,000 ML IV SCH ×2 (22:07)
[2022-11-24] MEDS: Diltiazem 125 MG in Sodium Chloride 0.9% 100 ML IVPB SCH (22:17)
[2022-11-24] MEDS ORDERED: Fentanyl CADD 100 ML IV SCH (22:45)
[2022-11-24] MEDS ORDERED: Fentanyl BOLUS 250 ML IVPB PRN (22:45)
[2022-11-24] MEDS ORDERED: Propofol BOLUS 1,000 MG/100 ML VIAL IV PRN (22:45)
[2022-11-24] MEDS ORDERED: DISCONTINUE PREVIOUS NARCOTIC PAIN MEDICATIONS AND BENZODIAZEPINES FS SCH (22:45)
[2022-11-24] MEDS ORDERED: Morphine 2 MG/ML VIAL SLOW IVP PRN (22:45)
[2022-11-24] MEDS: Propofol 1,000 MG/100 ML VIAL IV PRN (23:02)
[2022-11-25 04:53] LABS: #Lymphocytes 1.2 thou/uL (1.20-3.40); #Monocytes 1.7 thou/uL (0.11-0.59); #Neutrophils 13.2 thou/uL (1.40-6.50); %Eosinophils 0.1 % (0.0-10.0); %Lymphocytes 7.4 % (21.0-51.0); %Monocytes 10.3 % (0.0-10.0); %Neutrophils 82.2 % (42.0-75.0); Hemoglobin 15.7 g/dL (14.0-18.0); Mean Corpuscular HGB CONC 32.7 g/dL (32.0-36.0); Mean Corpuscular Hemoglobin 30.7 pg (27.0-31.0); Mean Platelet Volume 9.6 fL (7.4-10.4); Platelet Count 179 10x3/uL (130-400); RBC Distribution Width 12.7 % (11.5-14.5); Red Blood Cell (RBC) Count 5.12 mill/uL (4.70-6.10); White Blood Cell (WBC) Count 16.1 10x3/uL (4.8-10.8)
[2022-11-25 05:25] LABS: Troponin I 0.217 ng/mL (< 0.028)
[2022-11-25 05:29] LABS: ALT (SGPT) 77 U/L (8-55); AST (SGOT) 187 U/L (5-34); Albumin 3.4 g/dL (3.4-4.8); Alkaline Phosphatase 63 U/L (40-110); Anion Gap 14 mmol/L (10-20); BUN (Urea Nitrogen) 44 mg/dL (8.4-25.7); Bilirubin, Total 0.8 mg/dL (0.2-1.2); Calc. Creatinine Clearance 39 mL/min (70-130); Calcium 8.1 mg/dL (7.8-10.44); Carbon Dioxide 21 mmol/L (23-31); Chloride 108 mmol/L (98-107); Estimated GFR 27; Globulin 3.3 g/dL (2.4-3.5); Glucose 139 mg/dL (80-115); Potassium 4.8 mmol/L (3.5-5.1); Protein, Total 6.7 g/dL (5.8-8.1); Sodium 138 mmol/L (136-145)
[2022-11-25] MEDS: Propofol 1,000 MG/100 ML VIAL IV PRN ×3 (05:44→19:09)
[2022-11-25] MEDS: Sodium Chloride 0.9% 1,000 ML IV SCH ×2 (05:44→16:56)
[2022-11-25 05:46] LABS: CK (CPK) 14550 U/L (30-200)
[2022-11-25 08:03] LABS: Actual Bicarbonate (HCO3a) 19.7 mEq/L (22-28); Base Excess (BEa) -2.7 mEq/L (-2.0 to +3.0); CO2 Tension 28.6 mmHg (35.0-45.0); Calcium, Ionized (arterial) 1.03 mmol/L (1.12-1.30); Carboxyhemoglobin (COHb) 0.5 gm% (0.0-3.0); Hemoglobin (Hb) 15.9 g/dL (14.0-18.0); O2 Tension (PaO2), arterial 153.5 mmHg (> 80.0); Potassium - ABG Lab 4.57 mmol/L (3.70-5.30); pH, Arterial 7.46 (7.35-7.45)
[2022-11-25 08:11] LABS: Puncture Site RRA
[2022-11-25] MEDS: Pantoprazole 40 MG VIAL IVP SCH (08:39)
[2022-11-25] MEDS: HumaLOG 300 UNITS/3 ML VIAL SC PRN (09:32)
[2022-11-25 09:33] LABS: Troponin I 0.222 ng/mL (< 0.028)
[2022-11-25] MEDS ORDERED: Cefepime 2 GM in Sodium Chloride 0.9% 100 ML IVPB SCH ×2 (10:00→16:00)
[2022-11-25] MEDS: Diltiazem 125 MG in Sodium Chloride 0.9% 100 ML IVPB SCH ×2 (11:59→21:24)
[2022-11-25] MEDS: hydrALAZINE 20 MG/ML VIAL SLOW IVP PRN (12:51)
[2022-11-25] MEDS: Cefepime 1 GM in Sodium Chloride 0.9% 100 ML IVPB SCH (16:55)
[2022-11-25] MEDS ORDERED: Acetaminophen 650 MG/20.3 ML UDCUP PO SCH (21:15)
[2022-11-25] MEDS: Vancomycin 1.5 GRAM/300 ML BAG 1.5 GM in Premix Bag 1 BAG IVPB SCH (21:24)
[2022-11-26] MEDS: hydrALAZINE 20 MG/ML VIAL SLOW IVP PRN (03:07)
[2022-11-26] MEDS: Cefepime 1 GM in Sodium Chloride 0.9% 100 ML IVPB SCH (03:07)
[2022-11-26] MEDS: Propofol 1,000 MG/100 ML VIAL IV PRN (03:07)
[2022-11-26 07:14] LABS: #Lymphocytes 1.7 thou/uL (1.20-3.40); #Monocytes 2.4 thou/uL (0.11-0.59); %Basophils 0.1 % (0.0-1.0); %Eosinophils 0.1 % (0.0-10.0); %Lymphocytes 10.7 % (21.0-51.0); %Monocytes 14.5 % (0.0-10.0); %Neutrophils 74.5 % (42.0-75.0); Hemoglobin 14.8 g/dL (14.0-18.0); Mean Corpuscular HGB CONC 32.1 g/dL (32.0-36.0); Mean Corpuscular Hemoglobin 30.7 pg (27.0-31.0); Mean Corpuscular Volume 95.8 fl (78.0-98.0); Mean Platelet Volume 9.5 fL (7.4-10.4); Platelet Count 152 10x3/uL (130-400); RBC Distribution Width 12.7 % (11.5-14.5); White Blood Cell (WBC) Count 16.2 10x3/uL (4.8-10.8)
[2022-11-26 07:35] LABS: ALT (SGPT) 75 U/L (8-55); AST (SGOT) 159 U/L (5-34); Albumin 3.1 g/dL (3.4-4.8); Alkaline Phosphatase 59 U/L (40-110); Anion Gap 12 mmol/L (10-20); BUN (Urea Nitrogen) 52 mg/dL (8.4-25.7); Bilirubin, Total 0.6 mg/dL (0.2-1.2); Calc. Creatinine Clearance 36 mL/min (70-130); Calcium 8.3 mg/dL (7.8-10.44); Carbon Dioxide 19 mmol/L (23-31); Chloride 112 mmol/L (98-107); Estimated GFR 24; Globulin 3.5 g/dL (2.4-3.5); Glucose 102 mg/dL (80-115); Potassium 4.2 mmol/L (3.5-5.1); Protein, Total 6.6 g/dL (5.8-8.1); Sodium 139 mmol/L (136-145)
[2022-11-26 08:05] LABS: CK (CPK) 8284 U/L (30-200)
[2022-11-26] MEDS: Pantoprazole 40 MG VIAL IVP SCH (08:06)
[2022-11-26] MEDS ORDERED: Vancomycin Dose by Levels Sliding Scale (Wt 71-99) FS SCH (11:30)
[2022-11-26] MEDS: Sodium Chloride 0.9% 1,000 ML IV SCH (12:51)
[2022-11-26] MEDS: HumaLOG 300 UNITS/3 ML VIAL SC PRN (16:10)
[2022-11-26] MEDS: Diltiazem 125 MG in Sodium Chloride 0.9% 100 ML IVPB SCH (16:11)
[2022-11-26] MEDS: Acetaminophen 650 MG/20.3 ML UDCUP PO PRN (21:49)
[2022-11-26 22:58] LABS: Vancomycin, Trough 18.5 ug/mL
[2022-11-26] MEDS: Vancomycin 1.5 GRAM/300 ML BAG 1.5 GM in Premix Bag 1 BAG IVPB SCH (23:31)
[2022-11-26] MEDS ORDERED: Vancomycin HCl 500 MG in Sodium Chloride 0.9% 100 ML IV SCH (23:59)
[2022-11-27] MEDS: Propofol 1,000 MG/100 ML VIAL IV PRN ×2 (00:32→23:27)
[2022-11-27] MEDS: HumaLOG 300 UNITS/3 ML VIAL SC PRN (04:30)
[2022-11-27] MEDS: Cefepime 1 GM in Sodium Chloride 0.9% 100 ML IVPB SCH (04:31)
[2022-11-27] MEDS: Pantoprazole 40 MG VIAL IVP SCH (08:42)
[2022-11-27 09:37] LABS: #Eosinphils 0.1 thou/uL (0.0-0.7); #Lymphocytes 1.4 thou/uL (1.20-3.40); #Monocytes 1.9 thou/uL (0.11-0.59); #Neutrophils 11.7 thou/uL (1.40-6.50); %Basophils 0.1 % (0.0-1.0); %Eosinophils 0.4 % (0.0-10.0); %Lymphocytes 9.4 % (21.0-51.0); %Monocytes 12.7 % (0.0-10.0); %Neutrophils 77.3 % (42.0-75.0); Hemoglobin 13.5 g/dL (14.0-18.0); Mean Corpuscular Hemoglobin 30.9 pg (27.0-31.0); Mean Corpuscular Volume 96.6 fl (78.0-98.0); Mean Platelet Volume 9.4 fL (7.4-10.4); Platelet Count 141 10x3/uL (130-400); RBC Distribution Width 12.7 % (11.5-14.5); Red Blood Cell (RBC) Count 4.37 mill/uL (4.70-6.10); White Blood Cell (WBC) Count 15.1 10x3/uL (4.8-10.8)
[2022-11-27 10:01] LABS: ALT (SGPT) 60 U/L (8-55); AST (SGOT) 102 U/L (5-34); Albumin 2.9 g/dL (3.4-4.8); Alkaline Phosphatase 53 U/L (40-110); Anion Gap 12 mmol/L (10-20); BUN (Urea Nitrogen) 62 mg/dL (8.4-25.7); Bilirubin, Total 0.6 mg/dL (0.2-1.2); Calc. Creatinine Clearance 33 mL/min (70-130); Calcium 8.3 mg/dL (7.8-10.44); Carbon Dioxide 21 mmol/L (23-31); Chloride 112 mmol/L (98-107); Estimated GFR 22; Globulin 3.4 g/dL (2.4-3.5); Glucose 139 mg/dL (80-115); Phosphorus 2.1 mg/dL (2.3-4.7); Potassium 4.3 mmol/L (3.5-5.1); Protein, Total 6.3 g/dL (5.8-8.1); Sodium 141 mmol/L (136-145)
[2022-11-27] MEDS: Diltiazem 125 MG in Sodium Chloride 0.9% 100 ML IVPB SCH (12:38)
[2022-11-27] MEDS: Sodium Chloride 0.9% 1,000 ML IV SCH (12:39)
[2022-11-27 13:24] LABS: Bilirubin Negative (Negative); Blood, Urine 3+ (Negative); CAUTI Indications for Culture Fever or rigors; Clarity Turbid (Clear); Glucose, Urine (Dipstick) 70 mg/dL (Negative); Ketone, Urine Negative (Negative); Leukocyte 75 Leu/uL (Negative); Nitrite Negative (Negative); Protein, Urine (Dipstick) 100 mg/dL (Neg-Trace); Specific Gravity, Urine 1.023 (1.002-1.036); Squamous Epithelial 0-3 HPF (0-3); Urobilinogen Normal mg/dL (Less than 2); pH, Urine 5.5 (5.0-9.0)
[2022-11-27 13:35] LABS: Bacteria/HPF 2+ HPF (None Seen); Transitional Epithelial 0-3 HPF (None Seen)
[2022-11-27 13:39] LABS: Urine Culture Reflex No No
[2022-11-27 23:13] LABS: Vancomycin, Random 15.6 ug/mL (See Comment)
[2022-11-28] MEDS ORDERED: Vancomycin HCl 500 MG in Sodium Chloride 0.9% 100 ML IV SCH (01:00)
[2022-11-28] MEDS: Sodium Chloride 0.9% 1,000 ML IV SCH ×3 (01:11→23:34)
[2022-11-28] MEDS: Cefepime 1 GM in Sodium Chloride 0.9% 100 ML IVPB SCH ×2 (05:33→16:17)
[2022-11-28 07:04] LABS: #Basophils 0.1 thou/uL (0.0-0.2); #Eosinphils 0.2 thou/uL (0.0-0.7); #Lymphocytes 2.1 thou/uL (1.20-3.40); #Monocytes 1.8 thou/uL (0.11-0.59); #Neutrophils 10.5 thou/uL (1.40-6.50); %Basophils 0.4 % (0.0-1.0); %Eosinophils 1.2 % (0.0-10.0); %Lymphocytes 14.4 % (21.0-51.0); %Monocytes 12.3 % (0.0-10.0); %Neutrophils 71.7 % (42.0-75.0); Hemoglobin 12.2 g/dL (14.0-18.0); Mean Corpuscular HGB CONC 31.4 g/dL (32.0-36.0); Mean Corpuscular Hemoglobin 30.6 pg (27.0-31.0); Mean Corpuscular Volume 97.5 fl (78.0-98.0); Platelet Count 157 10x3/uL (130-400); RBC Distribution Width 12.8 % (11.5-14.5); Red Blood Cell (RBC) Count 3.99 mill/uL (4.70-6.10); White Blood Cell (WBC) Count 14.7 10x3/uL (4.8-10.8)
[2022-11-28] MEDS: Amlodipine 5 MG TAB PER TUBE SCH (09:02)
[2022-11-28] MEDS: Pantoprazole 40 MG VIAL IVP SCH (09:05)
[2022-11-28] MEDS: Propofol 1,000 MG/100 ML VIAL IV PRN ×3 (10:45→23:34)
[2022-11-28 12:14] LABS: Anion Gap 12 mmol/L (10-20); BUN (Urea Nitrogen) 56 mg/dL (8.4-25.7); Calc. Creatinine Clearance 42 mL/min (70-130); Calcium 8.6 mg/dL (7.8-10.44); Carbon Dioxide 22 mmol/L (23-31); Chloride 115 mmol/L (98-107); Estimated GFR 32; Glucose 138 mg/dL (80-115); Magnesium 2.9 mg/dL (1.6-2.6); Phosphorus 2.4 mg/dL (2.3-4.7); Potassium 4.3 mmol/L (3.5-5.1); Sodium 145 mmol/L (136-145)
[2022-11-28] MEDS: Albumin 25% 25 GM/100 ML BOT IVPB SCH ×3 (13:27→23:34)
[2022-11-28] MEDS: Labetalol HCl 100 MG/20 ML VIAL SLOW IVP PRN ×2 (16:16→18:48)
[2022-11-29 00:29] LABS: Vancomycin, Random 10.6 ug/mL (See Comment)
[2022-11-29] MEDS ORDERED: Vancomycin HCl 750 MG in Sodium Chloride 0.9% 250 ML 250 ML IVPB SCH (01:00)
[2022-11-29] MEDS: Cefepime 1 GM in Sodium Chloride 0.9% 100 ML IVPB SCH (03:48)
[2022-11-29 04:16] LABS: Actual Bicarbonate (HCO3v) 21 mEq/L (22-28); Base Excess -1.6 mEq/L (-2.0 to +3.0); Calcium, Ionized (venous) 1.12 mmol/L (1.16-1.32); Chloride (VBG) 112 mmol/L (98-106); Hemoglobin (Hb) 11.5 g/dL (12.6-17.4); Potassium (VBG) 4.07 mmol/L (3.70-5.30); Sodium 145.1 mmol/L (133-146); pH (venous) 7.48 (7.32-7.43)
[2022-11-29 04:19] LABS: #Eosinphils 0.2 thou/uL (0.0-0.7); #Lymphocytes 1.8 thou/uL (1.20-3.40); #Monocytes 1.1 thou/uL (0.11-0.59); #Neutrophils 6.8 thou/uL (1.40-6.50); %Basophils 0.4 % (0.0-1.0); %Eosinophils 2.4 % (0.0-10.0); %Monocytes 11.3 % (0.0-10.0); %Neutrophils 67.9 % (42.0-75.0); Hemoglobin 10.6 g/dL (14.0-18.0); Mean Corpuscular HGB CONC 32.7 g/dL (32.0-36.0); Mean Corpuscular Hemoglobin 31.5 pg (27.0-31.0); Mean Corpuscular Volume 96.3 fl (78.0-98.0); Mean Platelet Volume 8.7 fL (7.4-10.4); Platelet Count 149 10x3/uL (130-400); RBC Distribution Width 12.7 % (11.5-14.5); Red Blood Cell (RBC) Count 3.37 mill/uL (4.70-6.10)
[2022-11-29 04:55] LABS: ALT (SGPT) 50 U/L (8-55); AST (SGOT) 81 U/L (5-34); Albumin 3.5 g/dL (3.4-4.8); Alkaline Phosphatase 43 U/L (40-110); Anion Gap 12 mmol/L (10-20); BUN (Urea Nitrogen) 47 mg/dL (8.4-25.7); Bilirubin, Total 0.5 mg/dL (0.2-1.2); CK (CPK) 2619 U/L (30-200); Calc. Creatinine Clearance 48 mL/min (70-130); Calcium 8.6 mg/dL (7.8-10.44); Carbon Dioxide 23 mmol/L (23-31); Cardiac Risk 6.4 (Less than 4.5); Chloride 115 mmol/L (98-107); Cholesterol 127 mg/dl (< 200 Desired); Estimated GFR 38; Globulin 2.7 g/dL (2.4-3.5); Glucose 138 mg/dL (80-115); HDL Cholesterol 20 mg/dL (>60 Neg Risk); LDL Cholesterol, Calculated 70 mg/dL; Phosphorus 2.9 mg/dL (2.3-4.7); Protein, Total 6.2 g/dL (5.8-8.1); Sodium 146 mmol/L (136-145); Triglycerides 184 mg/dL (Less than 150)
[2022-11-29] MEDS: Albumin 25% 25 GM/100 ML BOT IVPB SCH (05:17)
[2022-11-29] MEDS: Propofol 1,000 MG/100 ML VIAL IV PRN ×4 (05:17→20:35)
[2022-11-29] MEDS: Pantoprazole 40 MG VIAL IVP SCH (08:22)
[2022-11-29] MEDS: Amlodipine 5 MG TAB PER TUBE SCH ×3 (08:22→20:35)
[2022-11-29] MEDS: Labetalol HCl 100 MG/20 ML VIAL SLOW IVP PRN (08:23)
[2022-11-29] MEDS: cloNIDine 0.2 MG TAB PER TUBE SCH ×2 (09:44→18:48)
[2022-11-29] MEDS ORDERED: Lidocaine 1% (PF) 30 ML VIAL ONE ×2 (13:34)
[2022-11-29] MEDS ORDERED: Iopamidol 370 76% 50 ML VIAL FS ONE (14:53)
[2022-11-29] MEDS: Sodium Chloride 0.9% 1,000 ML IV SCH (15:55)
[2022-11-30] MEDS: Lorazepam 2 MG/ML VIAL SLOW IVP PRN ×3 (00:25→21:38)
[2022-11-30] MEDS: cloNIDine 0.2 MG TAB PER TUBE SCH ×3 (01:15→16:58)
[2022-11-30] MEDS: Propofol 1,000 MG/100 ML VIAL IV PRN ×3 (01:42→23:48)
[2022-11-30 04:55] LABS: #Eosinphils 0.2 thou/uL (0.0-0.7); #Lymphocytes 1.6 thou/uL (1.20-3.40); #Monocytes 1.2 thou/uL (0.11-0.59); #Neutrophils 5.8 thou/uL (1.40-6.50); %Basophils 0.4 % (0.0-1.0); %Eosinophils 2.8 % (0.0-10.0); %Monocytes 13.4 % (0.0-10.0); %Neutrophils 65.4 % (42.0-75.0); Hemoglobin 10.6 g/dL (14.0-18.0); Mean Corpuscular HGB CONC 32.7 g/dL (32.0-36.0); Mean Corpuscular Hemoglobin 31.7 pg (27.0-31.0); Mean Corpuscular Volume 96.8 fl (78.0-98.0); Mean Platelet Volume 9.1 fL (7.4-10.4); Platelet Count 169 10x3/uL (130-400); RBC Distribution Width 12.6 % (11.5-14.5); Red Blood Cell (RBC) Count 3.33 mill/uL (4.70-6.10); White Blood Cell (WBC) Count 8.9 10x3/uL (4.8-10.8)
[2022-11-30 04:56] LABS: Anion Gap 13 mmol/L (10-20); BUN (Urea Nitrogen) 37 mg/dL (8.4-25.7); CK (CPK) 1884 U/L (30-200); Calc. Creatinine Clearance 54 mL/min (70-130); Calcium 8.8 mg/dL (7.8-10.44); Carbon Dioxide 22 mmol/L (23-31); Chloride 116 mmol/L (98-107); Estimated GFR 44; Glucose 127 mg/dL (80-115); Potassium 4.4 mmol/L (3.5-5.1); Sodium 147 mmol/L (136-145)
[2022-11-30] MEDS: Sodium Chloride 0.9% 1,000 ML IV SCH (05:57)
[2022-11-30] MEDS: Amlodipine 5 MG TAB PER TUBE SCH ×2 (08:13→21:49)
[2022-11-30] MEDS: Pantoprazole 40 MG VIAL IVP SCH (08:14)
[2022-11-30] MEDS: Labetalol HCl 100 MG/20 ML VIAL SLOW IVP PRN (14:04)
[2022-11-30] MEDS: Acetaminophen 650 MG/20.3 ML UDCUP PO PRN (19:24)
[2022-12-01] MEDS: cloNIDine 0.2 MG TAB PER TUBE SCH ×4 (02:11→17:48)
[2022-12-01] MEDS: HumaLOG 300 UNITS/3 ML VIAL SC PRN (03:59)
[2022-12-01 04:04] LABS: #Eosinphils 0.2 thou/uL (0.0-0.7); #Lymphocytes 1.9 thou/uL (1.20-3.40); #Monocytes 1.3 thou/uL (0.11-0.59); %Basophils 0.1 % (0.0-1.0); %Eosinophils 1.9 % (0.0-10.0); %Lymphocytes 18.5 % (21.0-51.0); %Monocytes 12.8 % (0.0-10.0); %Neutrophils 66.7 % (42.0-75.0); Hemoglobin 11.1 g/dL (14.0-18.0); Mean Corpuscular HGB CONC 32.7 g/dL (32.0-36.0); Mean Corpuscular Hemoglobin 31.5 pg (27.0-31.0); Mean Corpuscular Volume 96.3 fl (78.0-98.0); Mean Platelet Volume 8.5 fL (7.4-10.4); Platelet Count 189 10x3/uL (130-400); RBC Distribution Width 12.8 % (11.5-14.5); Red Blood Cell (RBC) Count 3.54 mill/uL (4.70-6.10); White Blood Cell (WBC) Count 10.5 10x3/uL (4.8-10.8)
[2022-12-01 04:30] LABS: Anion Gap 12 mmol/L (10-20); BUN (Urea Nitrogen) 34 mg/dL (8.4-25.7); CK (CPK) 1438 U/L (30-200); Calc. Creatinine Clearance 54 mL/min (70-130); Calcium 9.1 mg/dL (7.8-10.44); Carbon Dioxide 23 mmol/L (23-31); Chloride 115 mmol/L (98-107); Estimated GFR 43; Glucose 166 mg/dL (80-115); Potassium 4.6 mmol/L (3.5-5.1); Sodium 145 mmol/L (136-145)
[2022-12-01] MEDS: Propofol 1,000 MG/100 ML VIAL IV PRN ×3 (05:25→20:22)
[2022-12-01] MEDS: Pantoprazole 40 MG VIAL IVP SCH (08:24)
[2022-12-01] MEDS: Amlodipine 5 MG TAB PER TUBE SCH ×2 (08:24→20:20)
[2022-12-01] MEDS: Labetalol HCl 100 MG/20 ML VIAL SLOW IVP PRN (11:10)
[2022-12-01] MEDS: Lorazepam 2 MG/ML VIAL SLOW IVP PRN ×2 (12:50→21:06)
[2022-12-01] MEDS ORDERED: Midazolam HCl 5 mg/5 ml Vial FS SCH (18:45)
[2022-12-01] MEDS ORDERED: Vecuronium 10 MG VIAL IV SCH (18:45)
[2022-12-01] MEDS ORDERED: Fentanyl 100 MCG/2 ML VIAL SLOW IVP SCH (18:45)
[2022-12-01] MEDS ORDERED: Lidocaine 1% w/Epinephrine 1:200K 30 ML VIAL FS SCH (18:45)
[2022-12-02] MEDS: cloNIDine 0.2 MG TAB PER TUBE SCH ×3 (01:30→18:00)
[2022-12-02] MEDS: Lorazepam 2 MG/ML VIAL SLOW IVP PRN (02:41)
[2022-12-02] MEDS: Propofol 1,000 MG/100 ML VIAL IV PRN ×5 (04:20→21:00)
[2022-12-02 05:04] LABS: #Eosinphils 0.3 thou/uL (0.0-0.7); #Lymphocytes 2.4 thou/uL (1.20-3.40); #Monocytes 1.4 thou/uL (0.11-0.59); #Neutrophils 8.2 thou/uL (1.40-6.50); %Basophils 0.3 % (0.0-1.0); %Eosinophils 2.4 % (0.0-10.0); %Lymphocytes 19.3 % (21.0-51.0); %Monocytes 11.6 % (0.0-10.0); %Neutrophils 66.4 % (42.0-75.0); Hemoglobin 11.4 g/dL (14.0-18.0); Mean Corpuscular HGB CONC 32.4 g/dL (32.0-36.0); Mean Corpuscular Hemoglobin 31.4 pg (27.0-31.0); Mean Platelet Volume 9.1 fL (7.4-10.4); Platelet Count 210 10x3/uL (130-400); RBC Distribution Width 12.9 % (11.5-14.5); Red Blood Cell (RBC) Count 3.65 mill/uL (4.70-6.10); White Blood Cell (WBC) Count 12.4 10x3/uL (4.8-10.8)
[2022-12-02 05:26] LABS: Anion Gap 15 mmol/L (10-20); BUN (Urea Nitrogen) 37 mg/dL (8.4-25.7); CK (CPK) 1096 U/L (30-200); Calc. Creatinine Clearance 55 mL/min (70-130); Calcium 9.5 mg/dL (7.8-10.44); Carbon Dioxide 23 mmol/L (23-31); Chloride 112 mmol/L (98-107); Estimated GFR 45; Glucose 143 mg/dL (80-115); Potassium 4.8 mmol/L (3.5-5.1); Sodium 145 mmol/L (136-145)
[2022-12-02] MEDS: Amlodipine 5 MG TAB PER TUBE SCH ×2 (09:47→21:30)
[2022-12-02] MEDS: Lansoprazole 15 MG/5 ML (BATCHED)UDCUP PER TUBE SCH (09:50)
[2022-12-02] MEDS ORDERED: Midazolam HCl 2 mg/2 ml Vial SLOW IVP SCH (13:45)
[2022-12-02] MEDS ORDERED: Fentanyl 100 MCG/2 ML VIAL SLOW IVP SCH (13:45)
[2022-12-03] MEDS: cloNIDine 0.2 MG TAB PER TUBE SCH ×3 (02:00→20:29)
[2022-12-03] MEDS: Propofol 1,000 MG/100 ML VIAL IV PRN (02:40)
[2022-12-03 04:15] LABS: #Eosinphils 0.2 thou/uL (0.0-0.7); #Lymphocytes 2.2 thou/uL (1.20-3.40); #Monocytes 1.3 thou/uL (0.11-0.59); #Neutrophils 8.1 thou/uL (1.40-6.50); %Basophils 0.3 % (0.0-1.0); %Eosinophils 1.8 % (0.0-10.0); %Lymphocytes 18.8 % (21.0-51.0); %Monocytes 10.5 % (0.0-10.0); %Neutrophils 68.6 % (42.0-75.0); Hemoglobin 11.3 g/dL (14.0-18.0); Mean Corpuscular HGB CONC 32.4 g/dL (32.0-36.0); Mean Corpuscular Hemoglobin 31.1 pg (27.0-31.0); Mean Corpuscular Volume 96.2 fl (78.0-98.0); Mean Platelet Volume 8.2 fL (7.4-10.4); Platelet Count 208 10x3/uL (130-400); RBC Distribution Width 12.7 % (11.5-14.5); Red Blood Cell (RBC) Count 3.62 mill/uL (4.70-6.10); White Blood Cell (WBC) Count 11.8 10x3/uL (4.8-10.8)
[2022-12-03 04:42] LABS: Anion Gap 15 mmol/L (10-20); BUN (Urea Nitrogen) 42 mg/dL (8.4-25.7); CK (CPK) 999 U/L (30-200); Calc. Creatinine Clearance 55 mL/min (70-130); Calcium 9.4 mg/dL (7.8-10.44); Carbon Dioxide 23 mmol/L (23-31); Chloride 110 mmol/L (98-107); Estimated GFR 44; Glucose 121 mg/dL (80-115); Sodium 143 mmol/L (136-145)
[2022-12-03] MEDS ORDERED: Dexmedetomidine In 0.9 % NaCl 100 ML IVPB SCH (08:15)
[2022-12-03] MEDS: Lansoprazole 15 MG/5 ML (BATCHED)UDCUP PER TUBE SCH (08:34)
[2022-12-03] MEDS: Amlodipine 5 MG TAB PER TUBE SCH ×2 (09:44→20:28)
[2022-12-03] MEDS: Cefepime 2 GM in Sodium Chloride 0.9% 100 ML IVPB SCH ×2 (11:48→23:03)
[2022-12-03] MEDS ORDERED: Vancomycin 1.5 GRAM/300 ML BAG 1.5 GM in Premix Bag 1 BAG IVPB SCH (12:00)
[2022-12-03] MEDS ORDERED: Vancomycin HCl 1 GM in Sodium Chloride 0.9% 250 ML 250 ML IVPB ONE (14:48)
[2022-12-03] MEDS: Acetaminophen 650 MG/20.3 ML UDCUP PO PRN ×2 (17:31→23:03)
[2022-12-03] MEDS ORDERED: Vancomycin 1 GM in Premix Bag 1 BAG IVPB SCH (21:00)
[2022-12-04 07:38] LABS: #Eosinphils 0.2 thou/uL (0.0-0.7); #Lymphocytes 2.1 thou/uL (1.20-3.40); #Monocytes 1.6 thou/uL (0.11-0.59); #Neutrophils 12.1 thou/uL (1.40-6.50); %Basophils 0.2 % (0.0-1.0); %Lymphocytes 12.9 % (21.0-51.0); Hemoglobin 12.2 g/dL (14.0-18.0); Mean Corpuscular HGB CONC 32.5 g/dL (32.0-36.0); Mean Corpuscular Hemoglobin 31.3 pg (27.0-31.0); Mean Corpuscular Volume 96.5 fl (78.0-98.0); Mean Platelet Volume 8.6 fL (7.4-10.4); Platelet Count 218 10x3/uL (130-400); RBC Distribution Width 12.7 % (11.5-14.5); White Blood Cell (WBC) Count 15.9 10x3/uL (4.8-10.8)
[2022-12-04 07:58] LABS: Anion Gap 17 mmol/L (10-20); BUN (Urea Nitrogen) 48 mg/dL (8.4-25.7); CK (CPK) 855 U/L (30-200); Calc. Creatinine Clearance 52 mL/min (70-130); Calcium 9.5 mg/dL (7.8-10.44); Carbon Dioxide 23 mmol/L (23-31); Chloride 111 mmol/L (98-107); Estimated GFR 42; Glucose 149 mg/dL (80-115); Potassium 4.6 mmol/L (3.5-5.1); Sodium 146 mmol/L (136-145)
[2022-12-04] MEDS: Lansoprazole 15 MG/5 ML (BATCHED)UDCUP PER TUBE SCH (09:46)
[2022-12-04] MEDS: Amlodipine 5 MG TAB PER TUBE SCH ×2 (09:47→21:57)
[2022-12-04] MEDS: cloNIDine 0.2 MG TAB PER TUBE SCH (09:47)
[2022-12-04] MEDS: HumaLOG 300 UNITS/3 ML VIAL SC PRN (10:25)
[2022-12-04] MEDS: Cefepime 2 GM in Sodium Chloride 0.9% 100 ML IVPB SCH ×2 (11:17→23:22)
[2022-12-04] MEDS: Scopolamine 1.5 mg/72 hour Patch TOP SCH (12:55)
[2022-12-04] MEDS: cloNIDine 0.1 MG TAB PER TUBE SCH (21:57)
[2022-12-05 04:23] LABS: Hemoglobin 11.9 g/dL (14.0-18.0); Mean Corpuscular HGB CONC 33.8 g/dL (32.0-36.0); Mean Corpuscular Hemoglobin 32.6 pg (27.0-31.0); Mean Corpuscular Volume 96.4 fl (78.0-98.0); Mean Platelet Volume 8.8 fL (7.4-10.4); Platelet Count 232 10x3/uL (130-400); RBC Distribution Width 12.6 % (11.5-14.5); Red Blood Cell (RBC) Count 3.66 mill/uL (4.70-6.10)
[2022-12-05 04:24] LABS: #Basophils 0.1 thou/uL (0.0-0.2); #Eosinphils 0.3 thou/uL (0.0-0.7); #Lymphocytes 2.1 thou/uL (1.20-3.40); #Monocytes 1.7 thou/uL (0.11-0.59); #Neutrophils 11.9 thou/uL (1.40-6.50); %Basophils 0.4 % (0.0-1.0); %Eosinophils 1.6 % (0.0-10.0); %Lymphocytes 13.1 % (21.0-51.0); %Monocytes 10.6 % (0.0-10.0); %Neutrophils 74.3 % (42.0-75.0)
[2022-12-05 04:48] LABS: Anion Gap 14 mmol/L (10-20); BUN (Urea Nitrogen) 52 mg/dL (8.4-25.7); Calc. Creatinine Clearance 54 mL/min (70-130); Calcium 9.4 mg/dL (7.8-10.44); Carbon Dioxide 23 mmol/L (23-31); Chloride 111 mmol/L (98-107); Estimated GFR 44; Glucose 154 mg/dL (80-115); Potassium 4.5 mmol/L (3.5-5.1); Sodium 143 mmol/L (136-145)
[2022-12-05 04:53] LABS: CK (CPK) 702 U/L (30-200)
[2022-12-05] MEDS: cloNIDine 0.1 MG TAB PER TUBE SCH ×2 (08:23→21:40)
[2022-12-05] MEDS: Amlodipine 5 MG TAB PER TUBE SCH ×2 (08:24→21:38)
[2022-12-05] MEDS: Lansoprazole 15 MG/5 ML (BATCHED)UDCUP PER TUBE SCH (09:46)
[2022-12-05] MEDS ORDERED: Azithromycin 500 MG in Sodium Chloride 0.9% 250 ML 250 ML IVPB SCH (10:30)
[2022-12-05] MEDS: Cefepime 2 GM in Sodium Chloride 0.9% 100 ML IVPB SCH ×2 (10:33→22:55)
[2022-12-05] MEDS: HumaLOG 300 UNITS/3 ML VIAL SC PRN (10:33)
[2022-12-05] MEDS ORDERED: cefTRIAXone\\ROCEPHIN 2 GM in Sodium Chloride 0.9% 100 ML IVPB SCH (11:00)
[2022-12-05] MEDS ORDERED: Azithromycin 500 MG VIAL ONE (11:30)
[2022-12-05 12:57] LABS: INR-International Normal Ratio 1.2; Prothrombin Time 15.7 sec (12.0-14.7)
[2022-12-05 12:58] LABS: PTT 30.8 sec (22.9-36.1)
[2022-12-06 04:33] LABS: #Basophils 0.1 thou/uL (0.0-0.2); #Eosinphils 0.2 thou/uL (0.0-0.7); #Lymphocytes 1.9 thou/uL (1.20-3.40); #Monocytes 1.3 thou/uL (0.11-0.59); %Basophils 0.5 % (0.0-1.0); %Eosinophils 1.3 % (0.0-10.0); %Lymphocytes 13.3 % (21.0-51.0); %Monocytes 9.1 % (0.0-10.0); %Neutrophils 75.8 % (42.0-75.0); Hemoglobin 11.3 g/dL (14.0-18.0); Mean Corpuscular Hemoglobin 31.6 pg (27.0-31.0); Mean Corpuscular Volume 95.5 fl (78.0-98.0); Mean Platelet Volume 9.1 fL (7.4-10.4); Platelet Count 241 10x3/uL (130-400); RBC Distribution Width 12.7 % (11.5-14.5); Red Blood Cell (RBC) Count 3.59 mill/uL (4.70-6.10); White Blood Cell (WBC) Count 14.5 10x3/uL (4.8-10.8)
[2022-12-06 04:58] LABS: Anion Gap 14 mmol/L (10-20); BUN (Urea Nitrogen) 53 mg/dL (8.4-25.7); CK (CPK) 766 U/L (30-200); Calc. Creatinine Clearance 59 mL/min (70-130); Calcium 9.4 mg/dL (7.8-10.44); Carbon Dioxide 22 mmol/L (23-31); Chloride 110 mmol/L (98-107); Estimated GFR 50; Glucose 132 mg/dL (80-115); Potassium 4.2 mmol/L (3.5-5.1); Sodium 142 mmol/L (136-145)
[2022-12-06] MEDS ORDERED: Bacitracin Zinc Ointment 30 gm TUBE ONE (06:10)
[2022-12-06] MEDS ORDERED: Bupivacaine HCl 0.5%/Epinephrine 1:200,000/PF 30 ml Vial ONE (06:10)
[2022-12-06] MEDS ORDERED: Neomycin-Polymyxin 1 ML AMP ONE (06:10)
[2022-12-06] MEDS ORDERED: Thrombin 5000 UNITS/5 ML VIAL ONE (06:10)
[2022-12-06] MEDS ORDERED: Vancomycin 1 GM VIAL ONE (06:10)
[2022-12-06] MEDS: Amlodipine 5 MG TAB PER TUBE SCH ×2 (09:56→21:24)
[2022-12-06] MEDS: cloNIDine 0.1 MG TAB PER TUBE SCH ×2 (09:56→21:23)
[2022-12-06] MEDS: Lactated Ringer's 1,000 ML IV SCH ×2 (09:57→17:42)
[2022-12-06] MEDS: Lansoprazole 15 MG/5 ML (BATCHED)UDCUP PER TUBE SCH (09:57)
[2022-12-06] MEDS ORDERED: VANCOMYCIN 1.25 GM/250 ML BAG 1.25 GM in Premix Bag 1 BAG IVPB SCH (10:00)
[2022-12-06] MEDS: Azithromycin 500 MG in Sodium Chloride 0.9% 250 ML 250 ML IVPB SCH (10:37)
[2022-12-06] MEDS: Cefepime 2 GM in Sodium Chloride 0.9% 100 ML IVPB SCH ×2 (11:43→23:27)
[2022-12-06 12:07] VITALS: BMI 26.7
[2022-12-06] MEDS ORDERED: Vancomycin 1 GM in Premix Bag 1 BAG IVPB SCH (21:00)
[2022-12-07] MEDS: Lactated Ringer's 1,000 ML IV SCH ×4 (01:30→17:57)
[2022-12-07 04:33] LABS: #Eosinphils 0.3 thou/uL (0.0-0.7); #Lymphocytes 1.9 thou/uL (1.20-3.40); #Monocytes 1.1 thou/uL (0.11-0.59); #Neutrophils 9.7 thou/uL (1.40-6.50); %Basophils 0.3 % (0.0-1.0); %Eosinophils 2.1 % (0.0-10.0); %Lymphocytes 14.6 % (21.0-51.0); %Monocytes 8.3 % (0.0-10.0); %Neutrophils 74.6 % (42.0-75.0); Hemoglobin 10.6 g/dL (14.0-18.0); Mean Corpuscular HGB CONC 31.9 g/dL (32.0-36.0); Mean Corpuscular Hemoglobin 30.6 pg (27.0-31.0); Mean Corpuscular Volume 96.1 fl (78.0-98.0); Mean Platelet Volume 8.5 fL (7.4-10.4); Platelet Count 253 10x3/uL (130-400); RBC Distribution Width 12.5 % (11.5-14.5); Red Blood Cell (RBC) Count 3.46 mill/uL (4.70-6.10)
[2022-12-07 04:52] LABS: Anion Gap 11 mmol/L (10-20); BUN (Urea Nitrogen) 41 mg/dL (8.4-25.7); Calc. Creatinine Clearance 73 mL/min (70-130); Calcium 8.7 mg/dL (7.8-10.44); Carbon Dioxide 23 mmol/L (23-31); Chloride 111 mmol/L (98-107); Estimated GFR 64; Glucose 136 mg/dL (80-115); Sodium 141 mmol/L (136-145)
[2022-12-07] MEDS: Amlodipine 5 MG TAB PER TUBE SCH (08:50)
[2022-12-07] MEDS: Lansoprazole 15 MG/5 ML (BATCHED)UDCUP PER TUBE SCH (08:52)
[2022-12-07] MEDS: cloNIDine 0.1 MG TAB PER TUBE SCH (08:53)
[2022-12-07] MEDS ORDERED: VANCOMYCIN 1.25 GM/250 ML BAG 1.25 GM in Premix Bag 1 BAG IVPB SCH (10:00)
[2022-12-07] MEDS: Cefepime 2 GM in Sodium Chloride 0.9% 100 ML IVPB SCH (10:51)
[2022-12-07] MEDS: Azithromycin 500 MG in Sodium Chloride 0.9% 250 ML 250 ML IVPB SCH (10:52)
[2022-12-07 10:58] LABS: Actual Bicarbonate (HCO3a) 24.1 mEq/L (22-28); CO2 Tension 33.9 mmHg (35.0-45.0); Calcium, Ionized (arterial) 1.22 mmol/L (1.12-1.30); O2 Tension (PaO2), arterial 79.9 mmHg (> 80.0); Potassium - ABG Lab 3.92 mmol/L (3.70-5.30); pH, Arterial 7.47 (7.35-7.45)
[2022-12-07 11:01] LABS: ALV-art Gradient 77.365 mmHg (0-20); Puncture Site LRA
[2022-12-07] MEDS: Scopolamine 1.5 mg/72 hour Patch TOP SCH (11:57)
[2022-12-07 15:37] VITALS: BP 110/80
[2022-12-07 17:22] VITALS: TEMP 98.7
[2022-12-07] MEDS ORDERED: Atorvastatin Calcium 40 MG TAB PO SCH (21:00)
== END 2022-12-07 18:35 | DRG 3 ==
LOC: ERS 12:59 → ERHOLD 14:42 → CCU 18:40
PROVIDERS: ADMIT Internal Medicine; ATTEND Internal Medicine
PROC: 00N00ZZ Release Brain, Open Approach (ICD-10-PCS; principal; 2022-11-24)
PROC: 5A1955Z Respiratory Ventilation, Greater than 96 Consecutive Hours (ICD-10-PCS; 2022-11-24)
PROC: 06H03DZ Insertion of Intraluminal Device into Inferior Vena Cava, Percutaneous Approach (ICD-10-PCS; 2022-11-24)
PROC: 0D9680Z Drainage of Stomach with Drainage Device, Via Natural or Artificial Opening Endoscopic (ICD-10-PCS; 2022-11-24)
PROC: 0BH18EZ Insertion of Endotracheal Airway into Trachea, Via Natural or Artificial Opening Endoscopic (ICD-10-PCS; 2022-11-24)
PROC: 05HY33Z Insertion of Infusion Device into Upper Vein, Percutaneous Approach (ICD-10-PCS; 2022-11-24)
PROC: 3E03329 Introduction of Other Anti-infective into Peripheral Vein, Percutaneous Approach (ICD-10-PCS; 2022-11-24)
PROC: 0T9B70Z Drainage of Bladder with Drainage Device, Via Natural or Artificial Opening (ICD-10-PCS; 2022-11-24)
PROC: 0B113Z4 Bypass Trachea to Cutaneous, Percutaneous Approach (ICD-10-PCS; 2022-12-02)
PROC: 0DH63UZ Insertion of Feeding Device into Stomach, Percutaneous Approach (ICD-10-PCS; 2022-12-02)
DX: I63.512 Cerebral infarction due to unspecified occlusion or stenosis of left middle cerebral artery (principal); A41.9 Sepsis, unspecified organism; G93.41 Metabolic encephalopathy; J96.01 Acute respiratory failure with hypoxia; I21.A1 Myocardial infarction type 2; G93.5 Compression of brain; G93.6 Cerebral edema; I61.8 Other nontraumatic intracerebral hemorrhage; E87.20 Acidosis, unspecified; N17.9 Acute kidney failure, unspecified; I42.9 Cardiomyopathy, unspecified; M62.82 Rhabdomyolysis; I82.412 Acute embolism and thrombosis of left femoral vein; E87.3 Alkalosis; E87.0 Hyperosmolality and hypernatremia; J95.851 Ventilator associated pneumonia; Z20.822 Contact with and (suspected) exposure to COVID-19; Z51.5 Encounter for palliative care; R29.722 NIHSS score 22; I48.91 Unspecified atrial fibrillation; N18.30 Chronic kidney disease, stage 3 unspecified; E11.22 Type 2 diabetes mellitus with diabetic chronic kidney disease; R94.31 Abnormal electrocardiogram [ECG] [EKG]; L89.151 Pressure ulcer of sacral region, stage 1; F14.10 Cocaine abuse, uncomplicated; F15.10 Other stimulant abuse, uncomplicated; E66.9 Obesity, unspecified; R20.2 Paresthesia of skin; F20.9 Schizophrenia, unspecified; J45.20 Mild intermittent asthma, uncomplicated; F31.9 Bipolar disorder, unspecified; R74.01 Elevation of levels of liver transaminase levels; I49.3 Ventricular premature depolarization; T23.271A Burn of second degree of right wrist, initial encounter; T21.21XA Burn of second degree of chest wall, initial encounter; X08.8XXA Exposure to other specified smoke, fire and flames, initial encounter; B96.4 Proteus (mirabilis) (morganii) as the cause of diseases classified elsewhere; E86.9 Volume depletion, unspecified; E86.0 Dehydration; D64.9 Anemia, unspecified; Z91.199 Patient's noncompliance with other medical treatment and regimen due to unspecified reason; Z78.1 Physical restraint status; Z88.0 Allergy status to penicillin; I69.319 Unspecified symptoms and signs involving cognitive functions following cerebral infarction; Z79.899 Other long term (current) drug therapy; Z68.26 Body mass index [BMI] 26.0-26.9, adult; I12.9 Hypertensive chronic kidney disease with stage 1 through stage 4 chronic kidney disease, or unspecified chronic kidney disease
CPT/HCPCS: 31500; 31624; 36415; 36416; 36556; 36600; 37191; 51702; 70450; 71045; 76705; 76770; 80048; 80053; 80061; 80202; 80306; 80307; 81001; 81003; 81015; 82010; 82140; 82550; 82553; 82805; 83690; 83735; 83880; 84100; 84439; 84443; 84481; 84484; 85025; 85610; 85730; 87040; 87070; 87077; 87186; 87205; 87811; 93005; 93306; 93970; 94002; 94003; 95816; 95819; 95957; 96365; 96367; 96368; 96375; 96376; 97139; C1769; C1776; C1880; C1894; C9113; J0360; J0456; J0692; J1160; J1815; J2001; J2060; J2250; J2272; J2704; J3010; J3370; J3475; J3490; J7050; J7120; P9047; Q9967; U0003; U0005